=== PATIENT | male | born 1940 | race Caucasian/White ===

== ENCOUNTER → 2016-05-24 | Outpatient (CLI) | payer MEDICARE, MEDICAID ==
[~2016-05-24] MED LIST: ALB0.5V INH; ALBU0.8322; ALBU17AE23; APIX5TAB PO; ASCO-262 PO; ASCO2000; ASCORBIC ACID PO; ASP81TEC; ASP81TEC PO; ASPI-86; ATR20T PO; BUDE6HFA IH; CALC-697 PO; CARV12.53; CARV6.252; CARV6.252 PO; CLPD75T PO; DIGO125T PO; DIGO125T91 PO; DIGO250T PO; DIGO250T96 PO; DILT120C PO; DILT120C53 PO; DLT120CCR PO; DRON400T; DRON400T2 PO; ECHINACEA PO; ENAL2.5T PO; ERGO400C PO; ESCT10T PO; FAMO20TA5 PO; FENO145T2 PO; FINA5TAB PO; FLUT16SP22 NS; FLUT16SP22 NSEACH; FURO40TA4 PO; HCT25T PO; HYDR-2854 PO; LEVO750T6 PO; LVT.05T PO; MAGN296S PO; MELA1TAB11 PO; MTP100TCR PO; MTP25TSR PO; MULT-608 PO; MULT1TAB5 PO; NF-XOP-HFA INH; OMAL150V SQ; OMEG-109 PO; OMEG-9 PO; OMG1KC PO; OXYM30SP NSEACH; POTA10TA6; POTA20PA3 PO; PRD10T PO; PRD20T; PRD20T PO; PRD5T; PROP10TA8 PO; ROFL500T4 PO; ROSU10TA12 PO; ROSU20TA28 PO; SIMV10TA3; SIMV20TA3; SIMV40TA2 PO; SITA100T PO; SLMFT1E; SPIR25TA3 PO; SPIR50TA27; TEST100V8 IM; TIOT18CA; TIOT18CA IH; TRM50T PO; UMEC1BLS IH; VIT1TABL57 PO; WRF1T PO; WRF2.5T PO; WRF2T; WRF2T PO; [UNRECOGNIZED DRUG - REMARK]; vit D3
--- NOTE | 2016-05-25 08:13 | ECHOCARDIOGRAPHY REPORT ---
PROCEDURE PHYSICIAN: ANTOLIN PEARL DATE OF PROCEDURE: 05/24/2016 TWO DIMENSIONAL ECHOCARDIOGRAM REPORT PRIMARY PHYSICIAN: OTHER PHYSICIAN: REFERRING PHYSICIAN: Dr. Rolle ORDERING PHYSICIAN: INDICATION FOR THE PROCEDURE: Atrial fibrillation. MEASUREMENTS DERIVED VALUES LV DIAMETER (LAX) NORMALS NORMALS Diastolic 3.4 (3.6-5.2) Eject. Fract. 50% (60%+/-6%) Systolic (2.3-3.9) Diastolic Vol. % Shortening (0.22-0.42) Systolic Vol. Aortic Root IVS THICKNESS Diastolic 1.1 (0.6-1.1) LVPW THICKNESS Diastolic 1.1 (0.6-1.1) LA DIAMETER Systolic 4.7 (2.1-3.7) FINDINGS: 1. Technical quality is good. 2. The left ventricle is normal in size with mild left ventricular hypertrophy noted diffusely. Systolic function appeared to be preserved. Estimated ejection fraction 50%. 3. The left atrium is dilated. No clot or thrombus were seen within the left atrium. 4. The right atrium is dilated. Right ventricle is dilated. No clot or thrombus were seen within the right side. 5. Mitral valve is calcified with mitral annular calcification and myxomatous degeneration of the mitral leaflet. Mild mitral regurgitation noted by color Doppler flow. No mitral valve prolapse or stenosis. 6. Aortic valve is mildly calcified, trileaflet, no significant aortic stenosis or regurgitation was seen. 7. Tricuspid valve is normal in morphology with severe tricuspid regurgitation noted by color Doppler flow. Doppler across tricuspid valve estimated pulmonary artery pressure of 41+ right atrial pressure. 8. Pulmonic valve is functioning normally. 9. No pericardial effusion. IN CONCLUSION: 1. Mild left ventricular hypertrophy with normal systolic function. Estimated ejection fraction 50%. 2. Dilated left atrium. 3. Dilated right heart chambers. 4. 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 Mild mitral regurgitation. Aortic valve sclerosis. No aortic stenosis. Severe tricuspid regurgitation. 5. Pulmonary hypertension with estimated pulmonary artery pressure of 50 mmHg. Job ID: [id number] Dictated Date: 05/24/2016 18:21:49 Agile Business Analyst Date: 05/25/2016 08:09:45 / usman
== END ==
LOC: CARD 12:26
PROVIDERS: ATTEND Internal Medicine Cardiovascular Disease
DX: I25.10 Atherosclerotic heart disease of native coronary artery without angina pectoris (principal); I50.9 Heart failure, unspecified; I11.0 Hypertensive heart disease with heart failure; E78.2 Mixed hyperlipidemia; I48.0 Paroxysmal atrial fibrillation
CPT/HCPCS: 93306

== ENCOUNTER → 2016-06-02 | Outpatient (CLI) | payer MEDICARE, MEDICAID ==
[~2016-06-02] VITALS: Ht 175.3 cm; Wt 78.9 kg
[~2016-06-02] MED LIST changes: +CATHETER FLUSH 10 ML SYR IV PRN; +REGADENOSON 0.4 MG/5 ML SYR (LEXISCAN) IV ONE
[2016-06-02 09:06] VITALS: BP 113/72
[2016-06-02 09:10] VITALS: BP 100/74
[2016-06-02 10:11] LABS: ALBUMIN 3.3 G/DL (3.2-4.5); BILIRUBIN,DIRECT 0.5 MG/DL (0.0-0.3); BILIRUBIN,INDIRECT 0.6 MG/DL; TOTAL PROTEIN 6.6 G/DL (6.4-8.2)
[2016-06-02 10:20] LABS: BILIRUBIN,TOTAL 1.1 MG/DL (0.1-1.0)
--- NOTE | 2016-06-02 14:27 | STRESS TEST ---
PROCEDURE PHYSICIAN: ANTOLIN PEARL LEXISCAN MYOVIEW STRESS REPORT DATE OF PROCEDURE: 06/02/2016 REFERRING PHYSICIAN: Dr. Rolle Baseline heart rate is 73, baseline blood pressure: 113/72. Baseline EKG: Atrial fibrillation with no ischemic changes. SUMMARY: The patient was injected with 10.92 mCi of technetium 99 Myoview and the resting images were obtained. Then the patient received 0.4 mg of Lexiscan followed by 31.7 mCi of technetium 99 Myoview. Throughout the test, there were no EKG changes. The resting and stress images were reviewed and compared in the short axis, horizontal long axis, and vertical long axis views. Review of the images showed mild decreased uptake at the mid to apical anterior wall, anterolateral wall. SSS is 2, SDS 2, TID value 0.96. On the gated images, the left ventricle appeared to be normal size with normal contractility. Calculated ejection fraction 61%. CONCLUSION: 1. The patient tolerated Lexiscan well. 2. Mild ischemia involving the mid to apical anterior wall, anterolateral wall. 3. Normal left ventricular size with normal contractility. Calculated ejection fraction 61%. Job ID: [id number] Dictated Date: 06/02/2016 13:55:08 Fish Worm Grower Date: 06/02/2016 14:23:06 / carol
== END ==
LOC: CARD 07:22
PROVIDERS: ATTEND Internal Medicine Cardiovascular Disease
DX: E78.2 Mixed hyperlipidemia (principal); I48.91 Unspecified atrial fibrillation; I25.10 Atherosclerotic heart disease of native coronary artery without angina pectoris; I11.0 Hypertensive heart disease with heart failure; I50.9 Heart failure, unspecified; I48.0 Paroxysmal atrial fibrillation
CPT/HCPCS: 36415; 78452; 80061; 80076; 93017

== ENCOUNTER 2016-06-09 07:00 | Day surgery (SDC) | payer MEDICARE, MEDICAID ==
[2016-06-09] VITALS (13 sets, daily range): BP systolic 100–130; BP diastolic 68–95
[~2016-06-09] VITALS: Ht 172.7 cm; Wt 78.5 kg
[~2016-06-09 07:00] MED LIST changes: -APIX5TAB PO; -ASCO-262 PO; -CATHETER FLUSH 10 ML SYR IV PRN; -DILT120C53 PO; -FLUT16SP22 NSEACH; -OMAL150V SQ; -OMEG-109 PO; -OXYM30SP NSEACH; -REGADENOSON 0.4 MG/5 ML SYR (LEXISCAN) IV ONE; -ROFL500T4 PO; -ROSU20TA28 PO; -TEST100V8 IM; -UMEC1BLS IH
[2016-06-09] MEDS ORDERED: NS IV 1000 ML 1,000 ML ONE (07:07)
[2016-06-09] MEDS ORDERED: HEParin (CATH LAB) 2,000 ML IV ONE (07:07)
[2016-06-09] MEDS ORDERED: LIDOCAINE 1% INJ 20 ML (XYLOCAINE) VIAL ONE (07:07)
[2016-06-09] MEDS ORDERED: NS IV 1000 ML 1,000 ML IV SCH ×2 (07:12→10:07)
[2016-06-09 07:32] LABS: MEAN PLATELET VOLUME 10.1 FL (7.4-10.4); RED BLOOD COUNT 6.16 10^6/uL (4.35-5.85); RED CELL DISTRIBUTION WIDTH 18.7 % (10.0-14.5); WHITE BLOOD COUNT 7.3 10^3/uL (4.3-11.0)
[2016-06-09 07:33] LABS: BILIRUBIN,URINE NEGATIVE (NEGATIVE); KETONES,URINE NEGATIVE (NEGATIVE); LEUKOCYTE ESTERASE ,URINE 1+ (NEGATIVE); NITRITE,URINE NEGATIVE (NEGATIVE); PH,URINE 6 (5-9); PROTEIN,URINE 3+ (NEGATIVE); UROBILINOGEN,URINE 1 MG/DL (NORMAL)
[2016-06-09 07:42] LABS: PROTHROMBIN TIME PATIENT 13.1 SEC (12.2-14.7); SQUAMOUS EPITHELIAL CELL,UR 0-2 /HPF; WBC,URINE 0-2 /HPF
[2016-06-09 07:52] LABS: ALBUMIN 3.5 G/DL (3.2-4.5); BILIRUBIN,TOTAL 1.2 MG/DL (0.1-1.0); CALCIUM 8.9 MG/DL (8.5-10.1); CREATININE SERUM 1.18 MG/DL (0.60-1.30); POTASSIUM 3.6 MMOL/L (3.6-5.0)
--- NOTE | 2016-06-09 07:54 | Cardiac Procedure Note-CS/ASA ---
Pre-Procedure Note Pre-Op Procedure Note H&P Reviewed The H&P was reviewed, patient examined and no changes noted. Date H&P Reviewed: Jun 09, 2016 Time H&P Reviewed: 07:54 Conscious Sedation Pre-Proced Time Reviewed: 07:54 ASA Class: 3 Airway Mallampati Classification: ([place] appropriate class) I. II. III, IV Lungs Heart ASA score ASA 1: a normal healthy patient ASA 2: a patient with a mild systemic disease (mid diabetes, controlled hypertension, obesity x ASA 3: a patient with a severe systemic disease that limits activity (angina , COPD, prior Myocardial infarction) ASA 4: a patient with an incapacitating disease that is a constant threat to life (CHF, renal failure) ASA 5: a moribund patient not expected to survive 24 hrs. (ruptured aneurysm) ASA 6: a declared brain patient whose organs are being harvested. For emergent operations, add the letter E after the classification Grade 3 Sedation Plan: Analgesia, Amnesia, Plan communicated to team members, Discussed options with patient/fam, Discussed risks with patient/fam Note The patient is an appropriate candidate to undergo the planned procedure, sedation, and anesthesia. The patient immediately re-assessed prior to indication. ANTOLIN PEARL MD Jun 09, 2016 07:54
--- NOTE | 2016-06-09 08:22 | Diagnostic Imaging Report ---
Portable upright radiograph of the chest. INDICATION: Abnormal stress test. FINDINGS: The left lung demonstrate overall decreased volume with the deviation of the trachea to the left and elevation of the left hemidiaphragm. When compared to 2012 exam patchy infiltrates in the perihilar lesion was noted and at this point there is a mild remaining scarring in this region. There is some compensatory hyperinflation of the right lung. The heart size is mildly enlarged. No effusion or pneumothorax is evident. IMPRESSION: Areas of scarring with the overall decreased lung volume in the left side perhaps secondary to prior infections. No acute infiltrates identified. Dictated by: Dictated on workstation # [id number]
[2016-06-09] MEDS ORDERED: UMEC1BLS IH (08:55)
[2016-06-09] MEDS ORDERED: FLUT16SP22 NSEACH (08:55)
[2016-06-09] MEDS ORDERED: TEST100V8 IM (08:55)
[2016-06-09] MEDS ORDERED: ASCO-262 PO (08:55)
[2016-06-09] MEDS ORDERED: OXYM30SP NSEACH (08:55)
[2016-06-09] MEDS ORDERED: ROSU20TA28 PO (08:55)
[2016-06-09] MEDS ORDERED: APIX5TAB PO (08:55)
[2016-06-09] MEDS ORDERED: OMAL150V SQ (08:55)
[2016-06-09] MEDS ORDERED: OMEG-109 PO (08:55)
[2016-06-09] MEDS ORDERED: ROFL500T4 PO (08:55)
[2016-06-09] MEDS ORDERED: DILT120C53 PO (09:00)
[2016-06-09] MEDS ORDERED: MIDAZOLAM 5 MG/5 ML (VERSED) VIAL ONE (09:07)
[2016-06-09] MEDS ORDERED: fentaNYL INJECTION 100 MCG/2 ML AMP ONE (09:08)
--- NOTE | 2016-06-09 10:09 | Discharge Inst-Post CATH ---
Discharge Inst-CATH Post Cardiac Cath D/C Inst Follow Up/Plan Appointment with Dr Caceres's office in 2-4 weeks CARDIAC CATH DISCHARGE INSTRUCTIONS *Hold Metformin for 48 hours post heart cath. ACTIVITY * Go Home directly and rest. * Limit activity of the leg (or wrist if it was used) for 7 days including aerobics, swimming, jogging, bicycling, etc. * Restrict stair-climbing for 7 days if possible, if not, climb up with your non -cath leg, then bring together on the same step. * Avoid lifting, pushing, pulling or excessive movement of the affected extremity for 7 days. * Customary sexual activity may be resumed after 2 days-use caution not to use a position that strains or causes pain to the affected extremity. * No driving for 24 hours. * NO SMOKING. * Avoid straining for bowel movements for 7 days. * Gentle walking on level ground is allowed. * Returning to work will depend on the type of procedure and the results. Your doctor will discuss this with you. CALL YOUR DOCTOR FOR ANY OF THE FOLLOWING: *If bleeding from the puncture site occurs- Apply gentle pressure to site with clean cloth and call your doctor or EMS. * If a knot or lump forms under the skin, increases in size, or causes pain. * If bruising appears to be worsening or moving further down your leg instead of disappearing. * Temperature above 101 F. CARE OF YOUR GROIN INCISION; * Bruising or purple discoloration of the skin near the puncture site is common. * You may shower only, no bathtub bathing for 5 days. Be careful to avoid slipping as your leg may feel stiff. * If a closure device was used on your femoral artery, please see the attached guide regarding care of the device and your leg. * REMOVE the dressing from your groin the next day after your procedure in the shower. CARE OF YOUR WRIST INCISION; * Bruising or purple discoloration of the skin near the puncture site is common. * You may shower. * DO NOT submerge wrist. * Remove dressing in 24 hours. ANTOLIN CACERES MD Jun 09, 2016 10:09
[2016-06-09] MEDS ORDERED: PATIENT MAY USE OWN MEDS, ALL PO SCH (10:15)
--- NOTE | 2016-06-09 14:17 | DISCHARGE SUMMARY ---
PROCEDURE PHYSICIAN: ANTOLIN PEARL DATE OF PROCEDURE: 06/09/2016 REFERRING PHYSICIAN: Dr. Garrick Rolle. BRIEF HISTORY: Mr. Jones is a 76-year-old gentleman with history of coronary artery disease. He had 2 stents to the circumflex artery. The patient had an abnormal stress test. He was scheduled for left heart catheterization, possible PTCA. PROCEDURE NOTE: After explaining the procedure to the patient, all pros and cons were explained. All questions were answered. The patient signed a consent, then he was placed on the cardiac catheterization laboratory. The right groin was prepped in a sterile fashion. Local anesthesia applied to right groin. 6-Korean sheath was placed in the right femoral artery. Combination of right and left Bryon catheter were used to access the right and left coronary system. Multiple views were obtained. Pigtail catheter was advanced to the left ventricular cavity. Pressure was measured. Pullback LV to aorta was done. At the end of the procedure, sheath was removed. Mynx device deployed. Hemostasis achieved. FINDINGS: HEMODYNAMICS: LV pressure 87/11, end-diastolic pressure of 11, aortic pressure 89/57, mean of 70. No significant gradient across the aortic valve. ANATOMY: 1. Left main coronary artery is bifurcating to left anterior descending and left circumflex artery with no obstructive disease. 2. Left anterior descending artery, slightly a tortuous with mild disease at the mid and distal portion. Nonobstructive disease. 3. Left circumflex artery has a patent stent in the proximal and midportion with no significant obstructive disease. 4. Right coronary artery is moderate in size with 40% stenosis at the midportion, nonobstructive disease. 5. No left ventriculogram was done. Pressure was measured. CONCLUSION: 1. Patent stent in the circumflex artery. 2. Mild to moderate coronary artery disease involving the LAD and right coronary artery, nonobstructive disease. 3. Normal left ventricular, end diastolic pressure. DISCUSSION AND RECOMMENDATION: Medical therapy is recommended. No intervention is warranted. FINAL DIAGNOSIS: 1. Coronary artery disease. 2. Paroxysmal atrial fibrillation. 3. Hypertension. 4. Hyperlipidemia. Job ID: [id number] Dictated Date: 06/09/2016 10:13:04 Cyber Defense Analyst Date: 06/09/2016 14:15:20/carol
== END 2016-06-09 15:38 | disposition home or self-care (01) ==
LOC: CATH 07:00 → SURG 10:25 → CATH 15:38
PROVIDERS: ATTEND Internal Medicine Cardiovascular Disease
DX: R94.39 Abnormal result of other cardiovascular function study (principal); I25.10 Atherosclerotic heart disease of native coronary artery without angina pectoris; I48.0 Paroxysmal atrial fibrillation; I12.9 Hypertensive chronic kidney disease with stage 1 through stage 4 chronic kidney disease, or unspecified chronic kidney disease; N18.9 Chronic kidney disease, unspecified; J44.9 Chronic obstructive pulmonary disease, unspecified; I27.81 Cor pulmonale (chronic); I50.22 Chronic systolic (congestive) heart failure; E78.5 Hyperlipidemia, unspecified; Z99.81 Dependence on supplemental oxygen; Z79.01 Long term (current) use of anticoagulants; Z79.899 Other long term (current) drug therapy; Z87.891 Personal history of nicotine dependence; Z95.5 Presence of coronary angioplasty implant and graft
CPT/HCPCS: 36415; 71010; 80053; 81000; 85027; 85610; 85730; 87081; 93005; 93458

== ENCOUNTER 2016-08-25 12:50 | Outpatient (RCR) | payer MEDICARE, MEDICAID, OTHER ==
[2016-06-15 14:55] VITALS: BP 118/86
[2016-06-15 16:00] VITALS: BP 118/86
[2016-07-13 13:00] VITALS: BP 125/72
[~2016-08-25] VITALS: Ht 172.7 cm; Wt 78.5 kg
[2016-08-25 12:47] VITALS: BP 117/82
[~2016-08-25 12:50] MED LIST changes: +APIX5TAB PO; +ASCO-262 PO; +DILT120C53 PO; +FLUT16SP22 NSEACH; +OMAL150V SQ; +OMEG-109 PO; +OXYM30SP NSEACH; +ROFL500T4 PO; +ROSU20TA28 PO; +TEST100V8 IM; +UMEC1BLS IH
== END 2016-09-13 | disposition home or self-care (01) ==
LOC: SDC 12:50
PROVIDERS: ATTEND Internal Medicine
DX: D75.1 Secondary polycythemia (principal)
CPT/HCPCS: 99195

== ENCOUNTER 2016-10-20 06:11 | Outpatient (CLI) | payer MEDICARE, MEDICAID ==
[~2016-10-20] VITALS: Ht 172.7 cm; Wt 77.1 kg
[2016-12-20] MEDS ORDERED: DIGO125T PO (10:22)
[2016-12-20] MEDS ORDERED: FURO40TA4 PO (10:22)
[2016-12-20] MEDS ORDERED: FOLI1TAB6 PO (10:26)
[2016-12-20] MEDS ORDERED: METO-395 PO (10:26)
== END 2016-10-20 09:55 ==
LOC: PREOP 06:11
PROVIDERS: ATTEND Internal Medicine
DX: Z01.818 Encounter for other preprocedural examination (principal); K92.1 Melena

== ENCOUNTER 2016-10-22 08:50 | Day surgery (SDC) | payer MEDICARE, MEDICAID ==
[~2016-10-22] VITALS: Ht 172.7 cm; Wt 77.1 kg
[2016-10-22] MEDS ORDERED: 1/2 NS IV SOLUTION 1,000 ML IV STA (08:59)
[2016-10-22] MEDS ORDERED: MIDAZOLAM 2 MG/2 ML (VERSED) VIAL IVP PRN (09:00)
[2016-10-22] MEDS ORDERED: fentaNYL INJECTION 100 MCG/2 ML AMP IVP PRN (09:00)
[2016-10-22 09:14] VITALS: BP 121/92
--- NOTE | 2016-10-22 09:56 | Pre-Op Note & Conscious Sedat ---
Pre-Operative Progress Note H&P Reviewed The H&P was reviewed, patient examined and no changes noted. Date H&P Reviewed: Oct 22, 2016 Time H&P Reviewed: 09:00 Conscious Sedation Pre-Proced ASA Class: 3 Airway Mallampati Classification: ([place] appropriate class) I. II. III, IV Lungs Heart ASA score ASA 1: a normal healthy patient ASA 2: a patient with a mild systemic disease (mid diabetes, controlled hypertension, obesity ASA 3: a patient with a severe systemic disease that limits activity (angina , COPD, prior Myocardial infarction) ASA 4: a patient with an incapacitating disease that is a constant threat to life (CHF, renal failure) ASA 5: a moribund patient not expected to survive 24 hrs. (ruptured aneurysm) ASA 6: a declared brain patient whose organs are being harvested. For emergent operations, add the letter E after the classification Grade 3 Sedation Plan: Analgesia, Amnesia, Plan communicated to team members, Discussed options with patient/fam, Discussed risks with patient/fam Note The patient is an appropriate candidate to undergo the planned procedure, sedation, and anesthesia. The patient immediately re-assessed prior to indication. CRISTINA MEADOWS MD Oct 22, 2016 09:56
[2016-10-22] MEDS ORDERED: LIDOCAINE JELLY 2% (XYLOCAINE) 5 ML TUBE ONE (10:01)
[2016-10-22] MEDS ORDERED: fentaNYL INJECTION 100 MCG/2 ML AMP ONE (10:01)
[2016-10-22] MEDS ORDERED: MIDAZOLAM 2 MG/2 ML (VERSED) VIAL ONE ×2 (10:02)
[2016-10-22] MEDS ORDERED: LIDOCAINE JELLY 2% (XYLOCAINE) 5 ML TUBE TOP ONE (11:00)
[2016-10-22 11:20] VITALS: BP 117/83
[2016-10-22 11:50] VITALS: BP 126/84
--- NOTE | 2016-10-24 07:52 | OPERATIVE REPORT ---
DATE OF SERVICE: COLONOSCOPY SUMMARY INDICATIONS FOR THE PROCEDURE: Occult positive blood in the stool . The patient was placed in the left lateral decubitus position. Prior to undergoing colonoscopy, digital rectal evaluation was performed. Anal sphincter tone was normal and the perianal reflex was intact. Prostate was mildly enlarged, anodular and nontender on digital inspection. No abnormalities were noted on digital inspection of the distal rectal vault. The colonoscope was then inserted into the rectum and under direct visualization advanced to the cecum. The cecum was identified by identification of the ileocecal valve and cecal strap. Photographic documentation was obtained. Careful inspection was made as the colonoscope was withdrawn. The patient tolerated the procedure well. FINDINGS: There was no evidence for internal or external hemorrhoids and there was a diminutive hyperplastic-appearing polyp present in the distal rectum. It was biopsied and ablated, and submitted for histopathology. Small 2 and a 5 mm sessile adenomatous-appearing polyps were noted in the distal descending colon, proximal transverse colon, and distal ascending colon. All were biopsied and ablated with no subsequent blood loss and submitted for histopathology. The cecum was unremarkable. ASSESSMENT: Four diminutive polyps were removed today as noted above via hot forceps with no blood loss. This was otherwise normal colonoscopy to the cecum. As long as there are no surprises on histopathology report, we will not be recommending future surveillance colonoscopy considering this patient's age and medical comorbidities. Job ID: [id number] DocumentID: [id number] Dictated Date: 10/22/2016 13:10:41 Plant Culture Manager Date: 10/23/2016 00:19:58 Dictated By: CRISTINA MEADOWS MD
--- NOTE | 2016-11-03 08:02 | HISTORY AND PHYSICAL ---
DATE OF SERVICE: 10/22/2016 HISTORY OF PRESENT ILLNESS: The patient is a 76-year-old white male who underwent fecal occult blood screening as part of his [place] workup, which was positive several weeks ago. He reports that he feels well. He has noted no melena or bright red blood per rectum. He has had no bowel habit change and denies abdominal pain. It has been over 5 years since his last colonoscopy for which, he believes he did have a polyp removed. He reports stable dyspnea on exertion with no chest discomfort. Denies orthopnea, PND or pedal edema. PAST MEDICAL HISTORY: Significant for persistent atrial fibrillation, on Eliquis as well as O2 dependent COPD, oxygen at 2 liters per nasal cannula continuous. FAMILY HISTORY: He is not aware of any family history for colon cancer or colon polyps. PHYSICAL EXAMINATION: GENERAL: Reveals a pleasant white male who has lost a significant amount of weight and has maintained weight loss for the past several years, but reportedly stable appetite and energy level. VITAL SIGNS: Blood pressure is 102/81, weight is 167.6 pounds, was down 1.8 pounds from one month ago. CHEST: Clear. CARDIOVASCULAR: Irregularly irregular rhythm without significant murmur, S3 or S4. ABDOMEN: Soft, supple without mass, organomegaly or tenderness. EXTREMITIES: Reveal no cyanosis, clubbing or edema with chronic venous insufficiency change. No evidence for ulceration. [place] blood studies were reviewed and for the most part unremarkable with no evidence for anemia and a normal PSA. Liver function studies were normal as well as the rest of his chemistry panel. ASSESSMENT AND PLAN: 1. The patient is set up for diagnostic colonoscopy for further investigation of occult positive blood in the stool with weight loss. 2. Persistent atrial fibrillation, rate controlled without evidence for heart failure. 3. O2 dependent chronic obstructive pulmonary disease, improved with weight loss and no evidence for cor pulmonale. Job ID: [id number] DocumentID: [id number] Dictated Date: 10/13/2016 20:04:09 Health Information Coder Date: 10/13/2016 20:39:05 Dictated By: CRISTINA MEADOWS MD <Dictated by CRISTINA MEADOWS MD> <Electronically signed by CRISTINA MEADOWS MD> 10/15/16 1124
== END 2016-10-22 13:05 | disposition home or self-care (01) ==
LOC: ENDO 08:50
PROVIDERS: ATTEND Internal Medicine
DX: D12.2 Benign neoplasm of ascending colon (principal); D12.3 Benign neoplasm of transverse colon; K62.1 Rectal polyp; I48.1 Persistent atrial fibrillation; J44.9 Chronic obstructive pulmonary disease, unspecified; Z99.81 Dependence on supplemental oxygen
CPT/HCPCS: 88305

== ENCOUNTER 2016-11-18 09:43 | Outpatient (RCR) | payer MEDICARE, MEDICAID ==
[2016-09-22 11:19] VITALS: BP 121/77
--- NOTE | 2016-10-13 22:38 | HISTORY AND PHYSICAL ---
DATE OF SERVICE: HISTORY OF PRESENT ILLNESS: The patient is a 76-year-old white male who underwent fecal occult blood screening as part of his [place] workup, which was positive several weeks ago. He reports that he feels well. He has noted no melena or bright red blood per rectum. He has had no bowel habit change and denies abdominal pain. It has been over 5 years since his last colonoscopy for which, he believes he did have a polyp removed. He reports stable dyspnea on exertion with no chest discomfort. Denies orthopnea, PND or pedal edema. PAST MEDICAL HISTORY: Significant for persistent atrial fibrillation, on Eliquis as well as O2 dependent COPD, oxygen at 2 liters per nasal cannula continuous. FAMILY HISTORY: He is not aware of any family history for colon cancer or colon polyps. PHYSICAL EXAMINATION: GENERAL: Reveals a pleasant white male who has lost a significant amount of weight and has maintained weight loss for the past several years, but reportedly stable appetite and energy level. VITAL SIGNS: Blood pressure is 102/81, weight is 167.6 pounds, was down 1.8 pounds from one month ago. CHEST: Clear. CARDIOVASCULAR: Irregularly irregular rhythm without significant murmur, S3 or S4. ABDOMEN: Soft, supple without mass, organomegaly or tenderness. EXTREMITIES: Reveal no cyanosis, clubbing or edema with chronic venous insufficiency change. No evidence for ulceration. [facility] blood studies were reviewed and for the most part unremarkable with no evidence for anemia and a normal PSA. Liver function studies were normal as well as the rest of his chemistry panel. ASSESSMENT AND PLAN: 1. The patient is set up for diagnostic colonoscopy for further investigation of occult positive blood in the stool with weight loss. 2. Persistent atrial fibrillation, rate controlled without evidence for heart failure. 3. O2 dependent chronic obstructive pulmonary disease, improved with weight loss and no evidence for cor pulmonale. Job ID: [id number] DocumentID: [id number] Dictated Date: 10/13/2016 20:04:09 Retail Administrative Assistant Date: 10/13/2016 20:39:05 Dictated By: CRISTINA MEADOWS MD
[2016-10-22 11:15] VITALS: BP 117/83
[~2016-11-18] VITALS: Ht 172.7 cm; Wt 79.0 kg
[2016-11-18 10:00] VITALS: BP 134/100
== END 2016-11-27 | disposition home or self-care (01) ==
LOC: SDC 09:43
PROVIDERS: ATTEND Internal Medicine
DX: D75.1 Secondary polycythemia (principal)
CPT/HCPCS: 99195

== ENCOUNTER 2017-01-17 20:49 | Emergency (ER) | payer MEDICARE, MEDICAID ==
[~2017-01-17] VITALS: Ht 175.3 cm; Wt 77.1 kg
[~2017-01-17 20:49] MED LIST changes: +FOLI1TAB6 PO; +METO-395 PO
--- NOTE | 2017-01-17 21:54 | ED Fall/Injury ---
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 HE STATES HE LANDED ON HIS L SHOULDER AND WAS UNABLE TO GET HIMSELF UP OFF THE FLOOR. PT HAS MODERATE SIZED HEMATOMA TO L SHOULDER. PT DENIES HITTING HIS HEAD OR ANY OTHER INJURY. Source: patient Exam Limitations: no limitations History of Present Illness Time seen by provider: 21:54 Location Injury Occurred: PT HOME Allergies and Home Medications Allergies Coded Allergies: No Known Drug Allergies (Unverified , 10/20/16) Home Medications Ascorbate Calcium 500 Mg Tablet, 500 MG PO DAILY, (Reported) Digoxin 125 Mcg Tablet, 125 MCG PO DAILY, (Reported) Diltiazem HCl 120 Mg Cap.er.24h, 120 MG PO DAILY, (Reported) Fluticasone Propionate 16 Gm [place].susp, 1-2 SPRAYS NSEACH BID PRN for ALLERGIES , (Reported) Furosemide 40 Mg Tablet, 40 MG PO DAILY, (Reported) Metoprolol Succinate 100 Mg Tab.er.24h, 100 MG PO DAILY, (Reported) Multivitamin/Iron/Folic Acid 1 Each Tablet, 1 TAB PO DAILY, (Reported) Omalizumab 150 Mg Gaby, 150 MG SQ EVERY 2 WEEKS, (Reported) Caro-3 Fatty Acids/Fish Oil 1 Each Capsule, 2,400 MG PO DAILY, (Reported) TAKES 2 (1,200 MG) CAPSULES Oxymetazoline HCl 30 Ml [place], 1-2 SPRAYS NSEACH DAILY PRN for CONGESTION, ( Reported) Roflumilast 500 Mcg Tablet, 500 MCG PO DAILY, (Reported) Rosuvastatin Calcium 20 Mg Tablet, 20 MG PO DAILY, (Reported) Testosterone Cypionate 100 Mg/1 Ml Vial, 100 MG IM EVERY 2 WEEKS, (Reported) Umeclidinium Brm/Vilanterol Tr 1 Each Blst.w.dev, 1 PUFF IH DAILY, (Reported) Past Uzodmxx-Deikap-Ynoigh Hx Patient Social History Alcohol Use: Past History Recreational Drug Use: No Smoking Status: Former Smoker Type Used: Cigarettes Former Smoker, Quit: Jun 10, 2007 2nd Hand Smoke Exposure: No Recent Foreign Travel: No Contact w/Someone Who Travel: No Recent Infectious Disease Expo: No Recent Hopitalizations: No Physical Abuse: No Sexual Abuse: No Immunizations Up To Date Tetanus Booster (TDap): Unknown Date of Pneumonia Vaccine: Dec 08, 2015 Date of Influenza Vaccine: Dec 08, 2015 Seasonal Allergies Seasonal Allergies: Yes Surgeries History of Surgeries: Yes (I&D, [facility] GANGRENE) Respiratory History of Respiratory Disorde: Yes (2L O2 [place]) Respiratory Disorders: COPD Currently Using CPAP: Yes Cardiovascular History of Cardiac Disorders: Yes (CARDIOMYOPATHY WAS IN A-FIB JUNE 2009) Cardiac Disorders: Atrial Fibrillation, High Cholesterol, Hypertension, Irregular Heartbeat Neurological History of Neurological Disord: No Reproductive System Hx Reproductive Disorders: No Sexually Transmitted Disease: No HIV/AIDS: No Gastrointestinal History of Gastrointestinal Di: Yes Musculoskeletal History of Musculoskeletal Dis: No Endocrine History of Endocrine Disorders: No HEENT Loss of Vision: Bilateral Hearing Impairment: Denies Cancer History of Cancer: No Psychosocial History of Psychiatric Problem: No Suicide Risk Score: 0 Integumentary History of Skin or Integumenta: No Blood Transfusions History of Blood Disorders: Yes (POLYCYTHEMIA) Adverse Reaction to a Blood Tr: No Physical Exam Vital Signs Vital Sign - Last 12Hours 01/17/17 21:14 Temp 98.4 Pulse 80 Resp 18 B/P (MAP) 118/87 Pulse Ox 97 O2 Delivery Nasal Cannula Capillary Refill : Less Than 3 Seconds Progress/Results/Core Measures Results/Orders My Orders Orders - CRISTY GRULLON Chest Pa/Lat (2 View) (01/17/17 22:03) Ct Head Wo (01/17/17 22:03) Shoulder, Left, 3 Views (01/17/17 22:20) Vital Signs/I&O Vital Sign - Last 12Hours 01/17/17 21:14 Temp 98.4 Pulse 80 Resp 18 B/P (MAP) 118/87 Pulse Ox 97 O2 Delivery Nasal Cannula Blood Pressure Mean: 97 Departure Impression Impression: Primary Impression: Contusion of left shoulder Additional Impression: Fall in home Disposition: 01 HOME, SELF-CARE Condition: Improved Departure-Patient Inst. Decision time for Depature: 22:42 Referrals: CRISTINA MEADOWS MD (PCP/Family) Primary Care Physician Patient Instructions: Minor Head Injury (DC), Preventing Falls Add. Discharge Instructions: All discharge instructions reviewed with patient and/or family. Voiced understanding. Continue usual home medications. Ice pack for 20 minute intervals as needed for pain. Avoid strenuous activity, heavy lifting, or activities which may result and head injury for 7 days. Follow-up with your primary care provider as an outpatient for a recheck. Return to the emergency department for headache, neck pain, back pain, dizziness, changes in behavior, changes in vision, slurred speech, chest pain, shortness of air, vomiting, numbness, weakness, or any other concerns. CRISTY GRULLON Jan 17, 2017 21:54
[2017-01-17 23:03] VITALS: BP 118/87
--- NOTE | 2017-01-18 06:39 | Diagnostic Imaging Report ---
PROCEDURE: CT head without contrast. TECHNIQUE: Multiple contiguous axial images were obtained through the brain without the use of intravenous contrast. INDICATION: Fall. FINDINGS: There is prominence of ventricles and sulci. There is chronic microvascular ischemic disease. There is no hydrocephalus. There is no midline shift. There is no intracranial mass, hemorrhage or extra-axial fluid collection. The calvarium is intact. There is bilateral maxillary sinus disease as well as some opacification of several ethmoid air cells. Mastoid air cells are clear. IMPRESSION: No acute intracranial abnormality. There is atrophy and some chronic microvascular ischemic disease. If there is high clinical concern for an acute CVA further evaluation with MRI should be considered. Bilateral maxillary and ethmoid air cell disease. Dictated by: Dictated on workstation # [id number]
--- NOTE | 2017-01-18 07:23 | Diagnostic Imaging Report ---
INDICATION: Pain after fall. Comparison is made with prior examination 06/09/16. FINDINGS: Heart size is normal. There is mild venous congestion. There is some right basilar atelectasis and/or pneumonitis. There is no pleural effusion or pneumothorax. There are mild degenerative changes in the spine. IMPRESSION: Right basilar atelectasis and/or pneumonitis and some minimal central pulmonary venous congestion. Dictated by: Dictated on workstation # [id number]
--- NOTE | 2017-01-18 07:27 | Diagnostic Imaging Report ---
INDICATION: Fall with pain. No fracture, dislocation or acute articular incongruity. The visualized adjacent ribs and pleura appeared nonacute. AC joint showed no separation. IMPRESSION: No acute appearing abnormality. Dictated by: Dictated on workstation # [id number]
== END 2017-01-17 23:03 | disposition home or self-care (01) ==
LOC: EDUNIT# 20:49 → ER 20:50
DX: S40.012A Contusion of left shoulder, initial encounter (principal); J44.9 Chronic obstructive pulmonary disease, unspecified; I42.9 Cardiomyopathy, unspecified; I48.91 Unspecified atrial fibrillation; E78.00 Pure hypercholesterolemia, unspecified; I10 Essential (primary) hypertension; Z87.891 Personal history of nicotine dependence; W18.30XA Fall on same level, unspecified, initial encounter; Y92.009 Unspecified place in unspecified non-institutional (private) residence as the place of occurrence of the external cause
CPT/HCPCS: 70450; 71020; 73030; 99282

== ENCOUNTER 2017-03-16 09:45 | Outpatient (RCR) | payer MEDICARE, MEDICAID ==
[2016-12-20 10:15] VITALS: BP 103/75
[2017-01-19 10:26] VITALS: BP 114/94
[2017-02-16 09:55] VITALS: BP 126/82
[~2017-03-16] VITALS: Ht 172.7 cm; Wt 79.0 kg
[~2017-03-16 09:45] MED LIST changes: -ROSU20TA28 PO; +ROSU20TA30 PO
[2017-03-16 10:25] VITALS: BP 131/93
== END 2017-03-20 | disposition home or self-care (01) ==
LOC: SDC 09:45
PROVIDERS: ATTEND Internal Medicine
DX: D75.1 Secondary polycythemia (principal)
CPT/HCPCS: 99195

== ENCOUNTER 2017-07-06 09:50 | Outpatient (RCR) | payer MEDICARE, MEDICAID ==
[2017-04-13 10:22] VITALS: BP 119/71
[2017-05-11 10:00] VITALS: BP 115/83
[2017-06-08 10:09] VITALS: BP 115/83
[~2017-07-06] VITALS: Ht 172.7 cm; Wt 79.0 kg
[2017-07-06 10:30] VITALS: BP 115/79
== END 2017-07-12 | disposition home or self-care (01) ==
LOC: SDC 09:50
PROVIDERS: ATTEND Internal Medicine
DX: D75.1 Secondary polycythemia (principal)
CPT/HCPCS: 36591; 36592; 99195

== ENCOUNTER 2017-10-10 09:47 | Outpatient (RCR) | payer MEDICARE, MEDICAID ==
[2017-08-03 11:05] VITALS: BP 129/95
[2017-09-02 09:45] VITALS: BP 130/89
[~2017-10-10] VITALS: Ht 172.7 cm; Wt 79.0 kg
[~2017-10-10 09:47] MED LIST changes: -ROSU20TA30 PO; +ROSU20TA31 PO
[2017-10-10 09:59] VITALS: BP 126/84
== END 2017-11-01 | disposition home or self-care (01) ==
LOC: SDC 09:47
PROVIDERS: ATTEND Internal Medicine
DX: D75.1 Secondary polycythemia (principal)
CPT/HCPCS: 36592; 99195

== ENCOUNTER 2017-11-09 09:52 | Outpatient (RCR) | payer MEDICARE, MEDICAID ==
[~2017-11-09] VITALS: Ht 172.7 cm; Wt 79.0 kg
[2017-11-09 10:13] VITALS: BP 128/88
== END 2017-11-27 | disposition home or self-care (01) ==
LOC: SDC 09:52
PROVIDERS: ATTEND Internal Medicine
DX: D75.1 Secondary polycythemia (principal)
CPT/HCPCS: 36592

== ENCOUNTER 2017-11-23 18:28 | Emergency (ER) | payer MEDICARE, MEDICAID ==
[~2017-11-23] VITALS: Ht 175.3 cm; Wt 77.6 kg
--- OUTSIDE RECORDS SUMMARY | 2017-11-23 18:37 | XMS REPORT | Continuity of Care Document ---
Author Author [facility] Organization [facility] Address Unknown Phone Unavailable Allergies Active Description Code Type Severity Reaction Onset Reported/Identified Relationship to Patient Clinical Status Yes NKANo Known Allergies NKA Miscellaneous Allergy Unknown N/A 04/03/2005 Yes No Known Drug Allergies [id number] Drug Allergy Mild N/A 07/29/2008 Yes No Known Drug Allergies [id number] Drug Allergy Unknown N/A 10/20/2016 Medications There is no data. Problems Date Dx Coded Attending Type Code Diagnosis Diagnosed By 06/12/2009 Ot 327.24 06/12/2009 Ot 427.31 06/12/2009 Ot 496 07/13/2009 Ot 272.4 07/13/2009 Ot 401.9 07/13/2009 Ot 427.31 07/13/2009 Ot 496 07/13/2009 Ot V58.61 09/08/2009 Ot 287.5 09/08/2009 Ot 427.31 09/08/2009 Ot 442.2 09/08/2009 Ot 599.71 09/08/2009 Ot 789.09 09/08/2009 Ot 799.02 09/08/2009 Ot V15.82 09/08/2009 Ot V58.61 09/09/2009 Ot 564.00 09/09/2009 Ot 789.04 09/09/2009 Ot V58.61 09/09/2009 Ot V58.65 09/09/2009 Ot V58.69 10/30/2009 Ot 401.9 10/30/2009 Ot 427.31 10/30/2009 Ot 496 10/30/2009 Ot V58.61 12/30/2009 Ot 211.3 12/30/2009 Ot 427.31 12/30/2009 Ot 496 12/30/2009 Ot 562.10 12/30/2009 Ot 569.0 12/30/2009 Ot V58.61 02/02/2010 Ot 401.9 02/02/2010 Ot 427.31 02/02/2010 Ot 496 02/02/2010 Ot V58.61 05/12/2010 Ot 401.9 HYPERTENSION NOS 05/12/2010 Ot 427.31 ATRIAL FIBRILLATION 05/12/2010 Ot 496 CHR AIRWAY OBSTRUCT NEC 05/12/2010 Ot V58.61 ANTICOAGULANTS,LT,CURRENT USE 06/12/2010 Ot 272.4 HYPERLIPIDEMIA NEC/NOS 06/12/2010 Ot 401.9 HYPERTENSION NOS 06/12/2010 Ot 416.8 CHR PULMON HEART DIS NEC 06/12/2010 Ot 427.31 ATRIAL FIBRILLATION 06/12/2010 Ot 496 CHR AIRWAY OBSTRUCT NEC 06/12/2010 Ot 785.0 TACHYCARDIA NOS 06/12/2010 Ot V15.82 HISTORY OF TOBACCO USE 06/12/2010 Ot V46.2 SUPPLEMENTAL OXYGEN 06/22/2010 Ot 416.8 CHR PULMON HEART DIS NEC 06/22/2010 Ot 427.31 ATRIAL FIBRILLATION 06/22/2010 Ot 428.43 ACUTE CHRONIC SYSTOLIC/DIALSTOLIC HRT FA 06/22/2010 Ot 458.29 OTHER IATROGENIC HYPOTENSION 06/22/2010 Ot 491.21 OBSTR CHRONIC BRONCHITIS, W (ACUTE) EXAC 06/22/2010 Ot V15.82 HISTORY OF TOBACCO USE 08/30/2010 Ot 401.9 HYPERTENSION NOS 08/30/2010 Ot 427.31 ATRIAL FIBRILLATION 08/30/2010 Ot 496 CHR AIRWAY OBSTRUCT NEC 08/30/2010 Ot V58.61 ANTICOAGULANTS,LT,CURRENT USE 12/01/2010 Ot 401.9 HYPERTENSION NOS 12/01/2010 Ot 427.31 ATRIAL FIBRILLATION 12/01/2010 Ot 496 CHR AIRWAY OBSTRUCT NEC 12/01/2010 Ot V58.61 ANTICOAGULANTS,LT,CURRENT USE 02/13/2011 Ot 414.01 CORONARY ATHEROSCLEROSIS OF [place] CORON 02/13/2011 Ot 414.8 CHR ISCHEMIC HRT DIS NEC 02/13/2011 Ot 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 02/13/2011 Ot 427.31 ATRIAL FIBRILLATION 02/13/2011 Ot 428.0 CONGESTIVE HEART FAILURE NOS 02/13/2011 Ot 428.22 CHRONIC SYSTOLIC HRT FAILURE 02/13/2011 Ot 458.9 HYPOTENSION NOS 02/13/2011 Ot 496 CHR AIRWAY OBSTRUCT NEC 02/13/2011 Ot 585.9 CHRONIC KIDNEY DISEASE, UNSPECIFIED 02/13/2011 Ot V15.82 HISTORY OF TOBACCO USE 02/13/2011 Ot V46.2 SUPPLEMENTAL OXYGEN 02/13/2011 Ot V58.61 ANTICOAGULANTS,LT,CURRENT USE 03/09/2011 Ot 272.4 HYPERLIPIDEMIA NEC/NOS 03/09/2011 Ot 414.01 CORONARY ATHEROSCLEROSIS OF [place] CORON 03/09/2011 Ot 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 03/09/2011 Ot 427.31 ATRIAL FIBRILLATION 03/09/2011 Ot 428.0 CONGESTIVE HEART FAILURE NOS 03/09/2011 Ot 428.22 CHRONIC SYSTOLIC HRT FAILURE 03/09/2011 Ot 458.9 HYPOTENSION NOS 03/09/2011 Ot 496 CHR AIRWAY OBSTRUCT NEC 03/09/2011 Ot 785.0 TACHYCARDIA NOS 03/09/2011 Ot V45.82 PERCUTANEOUS TRANSLUM CORON ANGIOPLASTY 03/24/2011 Ot V58.61 ANTICOAGULANTS,LT,CURRENT USE 03/24/2011 Ot V58.83 ENCOUNTER FOR THERAPEUTIC DRUG MONITORIN 04/01/2011 Ot 038.9 SEPTICEMIA NOS 04/01/2011 Ot 275.2 DIS MAGNESIUM METABOLISM 04/01/2011 Ot 276.8 HYPOPOTASSEMIA 04/01/2011 Ot 410.71 AC MYOCARDIAL INFARCT,SUBENDO INFARCT,IN 04/01/2011 Ot 414.01 CORONARY ATHEROSCLEROSIS OF [place] CORON 04/01/2011 Ot 414.8 CHR ISCHEMIC HRT DIS NEC 04/01/2011 Ot 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 04/01/2011 Ot 427.31 ATRIAL FIBRILLATION 04/01/2011 Ot 428.0 CONGESTIVE HEART FAILURE NOS 04/01/2011 Ot 428.23 ACUTE CHRONIC SYSTOLIC HRT FAILURE 04/01/2011 Ot 486 PNEUMONIA, ORGANISM NOS 04/01/2011 Ot 491.21 OBSTR CHRONIC BRONCHITIS, W (ACUTE) EXAC 04/01/2011 Ot 518.84 ACUTE AND CHRONIC RESPIRATORY FAILURE 04/01/2011 Ot 995.91 SEPSIS 04/01/2011 Ot V45.82 PERCUTANEOUS TRANSLUM CORON ANGIOPLASTY 04/01/2011 Ot V58.61 ANTICOAGULANTS,LT,CURRENT USE 04/04/2011 Ot 427.31 ATRIAL FIBRILLATION 04/04/2011 Ot 780.4 DIZZINESS AND GIDDINESS 04/26/2011 Ot 786.05 SHORTNESS OF BREATH 07/04/2011 Ot 401.9 HYPERTENSION NOS 07/04/2011 Ot 427.31 ATRIAL FIBRILLATION 07/04/2011 Ot 496 CHR AIRWAY OBSTRUCT NEC 07/04/2011 Ot V58.61 ANTICOAGULANTS,LT,CURRENT USE 07/07/2011 Ot 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 07/07/2011 Ot 496 CHR AIRWAY OBSTRUCT NEC 07/21/2011 Ot 041.7 PSEUDOMONAS INFECT NOS 10/04/2011 Ot 401.9 HYPERTENSION NOS 10/04/2011 Ot 427.31 ATRIAL FIBRILLATION 10/04/2011 Ot 496 CHR AIRWAY OBSTRUCT NEC 10/04/2011 Ot V58.61 ANTICOAGULANTS,LT,CURRENT USE 01/23/2012 Ot 401.9 HYPERTENSION NOS 01/23/2012 Ot 427.31 ATRIAL FIBRILLATION 01/23/2012 Ot 496 CHR AIRWAY OBSTRUCT NEC 01/23/2012 Ot V58.61 ANTICOAGULANTS,LT,CURRENT USE 02/29/2012 Ot 401.9 HYPERTENSION NOS 02/29/2012 Ot 427.31 ATRIAL FIBRILLATION 02/29/2012 Ot 496 CHR AIRWAY OBSTRUCT NEC 02/29/2012 Ot V58.61 ANTICOAGULANTS,LT,CURRENT USE 06/06/2012 Ot 401.9 HYPERTENSION NOS 06/06/2012 Ot 427.31 ATRIAL FIBRILLATION 06/06/2012 Ot 496 CHR AIRWAY OBSTRUCT NEC 06/06/2012 Ot V58.61 ANTICOAGULANTS,LT,CURRENT USE 06/06/2012 Ot V58.69 OTH MED,LT, CURRENT USE 09/12/2012 CRISTINA MEADOWS MD Ot 401.9 HYPERTENSION NOS 09/12/2012 CRISTINA MEADOWS MD Ot 427.31 ATRIAL FIBRILLATION 09/12/2012 CRISTINA MEADOWS MD Ot 496 CHR AIRWAY OBSTRUCT NEC 09/12/2012 CRISTINA MEADOWS MD Ot V58.61 ANTICOAGULANTS,LT,CURRENT USE 12/21/2012 CRISTINA MEADOWS MD Ot 401.9 HYPERTENSION NOS 12/21/2012 CRISTINA MEADOWS MD Ot 427.31 ATRIAL FIBRILLATION 12/21/2012 CRISTINA MEADOWS MD Ot 496 CHR AIRWAY OBSTRUCT NEC 12/21/2012 CRISTINA MEADOWS MD Ot V58.61 ANTICOAGULANTS,LT,CURRENT USE 12/21/2012 CARLITO KWONG, ANGELA A Ot 493.00 EXTRINSIC ASTHMA, NOS 02/15/2013 CARLITO KWONG, ANGELA A Ot 493.00 EXTRINSIC ASTHMA, NOS 04/02/2013 CRISTINA MEADOWS MD Ot 401.9 HYPERTENSION NOS 04/02/2013 CRISTINA MEADOWS MD Ot 427.31 ATRIAL FIBRILLATION 04/02/2013 CRISTINA MEADOWS MD Ot 496 CHR AIRWAY OBSTRUCT NEC 04/02/2013 CRISTINA MEADOWS MD Ot V58.61 ANTICOAGULANTS,LT,CURRENT USE 07/05/2013 CRISTINA MEADOWS MD Ot 401.9 HYPERTENSION NOS 07/05/2013 CRISTINA MEADOWS MD Ot 427.31 ATRIAL FIBRILLATION 07/05/2013 CRISTINA MEADOWS MD Ot 496 CHR AIRWAY OBSTRUCT NEC 07/05/2013 CRISTINA MEADOWS MD Ot V58.61 ANTICOAGULANTS,LT,CURRENT USE 10/07/2013 CRISTINA MEADOWS MD Ot 401.9 HYPERTENSION NOS 10/07/2013 CRISTINA MEADOWS MD Ot 427.31 ATRIAL FIBRILLATION 10/07/2013 CRISTINA MEADOWS MD Ot 496 CHR AIRWAY OBSTRUCT NEC 10/07/2013 CRISTINA MEADOWS MD Ot V58.61 ANTICOAGULANTS,LT,CURRENT USE 02/05/2014 Ot 272.4 02/11/2014 Ot 272.4 11/22/2014 Ot 272.4 11/22/2014 Ot 401.9 11/22/2014 Ot 726.33 11/22/2014 Ot 272.4 11/22/2014 Ot 496 11/22/2014 Ot 789.59 11/22/2014 Ot 272.4 11/22/2014 Ot 401.9 11/22/2014 Ot 272.4 11/22/2014 Ot 414.00 11/22/2014 Ot 276.7 11/22/2014 Ot 414.00 11/22/2014 Ot V58.69 11/22/2014 Ot 414.01 11/22/2014 Ot 786.50 11/22/2014 Ot 786.05 11/22/2014 Ot 272.4 11/22/2014 Ot V58.69 11/22/2014 Ot V58.83 11/22/2014 Ot 272.4 11/22/2014 Ot 414.00 11/22/2014 KRISTIN FISH Ot 272.4 11/22/2014 KRISTIN FISH Ot 414.00 11/22/2014 Ot 493.00 11/22/2014 ANTOLIN PEARL MD Ot 272.4 11/22/2014 ANTOLIN PEARL MD Ot 414.00 11/22/2014 Ot 493.00 11/22/2014 ANOTLIN PEARL MD Ot 272.4 11/22/2014 RYANNE MD, BASHAR J Ot 397.0 11/22/2014 RYANNE KWONG, BASHAR J Ot 401.9 11/22/2014 RYANNE KWONG, YOSSIHAR J Ot 414.00 11/22/2014 RYANNE KWONG, BASHAR J Ot 424.0 11/22/2014 RYANNE KWONG, BASHAR J Ot 427.31 11/22/2014 RYANNE KWONG, BASHAR J Ot 428.0 11/22/2014 RYANNE KWONG, YOSSIHAR J Ot 272.4 11/22/2014 RYANNE KWONG, BASHAR J Ot 401.9 11/22/2014 RYANNE KWONG, BASHAR J Ot 414.00 11/22/2014 RYANNE KWONG, BASHAR J Ot 427.31 11/22/2014 RYANNE KWONG, YOSSIHAR J Ot 428.0 11/22/2014 RYANNE KWONG, YOSSIHAR J Ot 496 11/22/2014 RYANNE KWONG, YOSSIHAR J Ot 760.9 11/22/2014 RYANNE KWONG, YOSSIHAR J Ot 272.4 11/22/2014 RYANNE KWONG, YOSSIHAR J Ot 401.9 11/22/2014 RYANNE KWONG, YOSSIHAR J Ot 414.00 11/22/2014 RYANNE KWONG, YOSSIHAR J Ot 427.31 11/22/2014 RYANNE KWONG, YOSSIHAR J Ot 428.0 11/22/2014 RYANNE KWONG, YOSSIHAR J Ot 496 11/22/2014 RYANNE KWONG, ANTOLIN J Ot 786.09 11/22/2014 ABDIEL KWONG, CRISTINA Drake Ot 242.90 11/22/2014 ABDIEL KWONG, CRISTINA Drake Ot 427.31 11/22/2014 CRISTINA MEADOWS MD Ot V58.61 11/22/2014 Ot 401.9 11/22/2014 Ot 427.31 11/22/2014 Ot 496 11/22/2014 Ot V58.61 11/22/2014 Ot 272.4 11/22/2014 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 Ot 272.4 11/22/2014 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 Ot 414.00 11/22/2014 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 Ot 272.4 11/22/2014 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 Ot 414.00 11/22/2014 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 Ot 272.4 11/22/2014 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 Ot 414.00 08/18/2015 Ot 496 CHR AIRWAY OBSTRUCT NEC 08/18/2015 Ot 789.59 OTHER ASCITES 08/18/2015 Ot 272.4 HYPERLIPIDEMIA NEC/NOS 08/18/2015 Ot 401.9 HYPERTENSION NOS 08/18/2015 Ot 272.4 HYPERLIPIDEMIA NEC/NOS 08/18/2015 Ot 414.00 CORON ATHEROSCLER NOS TYPE VESSEL, NATIV 08/18/2015 Ot 276.7 HYPERPOTASSEMIA 08/18/2015 Ot 414.00 CORON ATHEROSCLER NOS TYPE VESSEL, NATIV 08/18/2015 Ot V58.69 OTH MED,LT, CURRENT USE 08/18/2015 Ot 414.01 CORONARY ATHEROSCLEROSIS OF [place] CORON 08/18/2015 Ot 786.50 CHEST PAIN NOS 08/18/2015 Ot 786.05 SHORTNESS OF BREATH 08/18/2015 Ot 272.4 HYPERLIPIDEMIA NEC/NOS 08/18/2015 Ot V58.69 OTH MED,LT, CURRENT USE 08/18/2015 Ot V58.83 ENCOUNTER FOR THERAPEUTIC DRUG MONITORIN 08/18/2015 Ot 272.4 HYPERLIPIDEMIA NEC/NOS 08/18/2015 Ot 414.00 CORON ATHEROSCLER NOS TYPE VESSEL, NATIV 08/18/2015 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 Ot 272.4 HYPERLIPIDEMIA NEC/NOS 08/18/2015 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 Ot 414.00 CORON ATHEROSCLER NOS TYPE VESSEL, NATIV 08/18/2015 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 Ot E78.4 OTHER HYPERLIPIDEMIA 08/18/2015 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 Ot I25.10 ATHSCL HEART DISEASE OF [place] CORONARY 08/18/2015 Ot 493.00 EXTRINSIC ASTHMA, NOS 08/18/2015 ANTOLIN PEARL MD Ot 272.4 HYPERLIPIDEMIA NEC/NOS 08/18/2015 ANTOLIN PEARL MD Ot 414.00 CORON ATHEROSCLER NOS TYPE VESSEL, NATIV 08/18/2015 Ot 493.00 EXTRINSIC ASTHMA, NOS 08/18/2015 ANTOLIN PEARL MD Ot 272.4 HYPERLIPIDEMIA NEC/NOS 08/18/2015 ANTOLIN PEARL MD Ot 397.0 TRICUSPID VALVE DISEASE 08/18/2015 ANTOLIN PEARL MD Ot 401.9 HYPERTENSION NOS 08/18/2015 ANTOLIN PEARL MD Ot 414.00 CORON ATHEROSCLER NOS TYPE VESSEL, NATIV 08/18/2015 ANTOLIN PEARL MD Ot 424.0 MITRAL VALVE DISORDER 08/18/2015 ANTOLIN PEARL MD Ot 427.31 ATRIAL FIBRILLATION 08/18/2015 ANTOLIN PEARL MD Ot 428.0 CONGESTIVE HEART FAILURE NOS 08/18/2015 ANTOLIN PEARL MD Ot 272.4 HYPERLIPIDEMIA NEC/NOS 08/18/2015 ANTOLIN PEARL MD Ot 401.9 HYPERTENSION NOS 08/18/2015 ANTOLIN PEARL MD Ot 414.00 CORON ATHEROSCLER NOS TYPE VESSEL, NATIV 08/18/2015 ANTOLIN PEARL MD Ot 427.31 ATRIAL FIBRILLATION 08/18/2015 ANTOLIN PEARL MD Ot 428.0 CONGESTIVE HEART FAILURE NOS 08/18/2015 ANTOLIN PEARL MD Ot 496 CHR AIRWAY OBSTRUCT NEC 08/18/2015 ANTOLIN PEARL MD Ot 760.9 MATERNAL COND NOS AFF NB 08/18/2015 ANTOLIN PEARL MD Ot 272.4 HYPERLIPIDEMIA NEC/NOS 08/18/2015 ANTOLIN PEARL MD Ot 401.9 HYPERTENSION NOS 08/18/2015 ANTOLIN PEARL MD Ot 414.00 CORON ATHEROSCLER NOS TYPE VESSEL, NATIV 08/18/2015 ANTOLIN PEARL MD Ot 427.31 ATRIAL FIBRILLATION 08/18/2015 ANTOLIN PEARL MD Ot 428.0 CONGESTIVE HEART FAILURE NOS 08/18/2015 ANTOLIN PEARL MD Ot 496 CHR AIRWAY OBSTRUCT NEC 08/18/2015 ANTOLIN PEARL MD Ot 786.09 RESPIRATORY ABNORM NEC 08/18/2015 CRISTINA MEADOWS MD Ot 242.90 THYROTOX NOS NO CRISIS 08/18/2015 CRISTINA MEADOWS MD Ot 427.31 ATRIAL FIBRILLATION 08/18/2015 CRISTINA MEADOWS MD Ot V58.61 ANTICOAGULANTS,LT,CURRENT USE 08/18/2015 Ot 401.9 HYPERTENSION NOS 08/18/2015 Ot 427.31 ATRIAL FIBRILLATION 08/18/2015 Ot 496 CHR AIRWAY OBSTRUCT NEC 08/18/2015 Ot V58.61 ANTICOAGULANTS,LT,CURRENT USE 08/18/2015 Ot 272.4 HYPERLIPIDEMIA NEC/NOS 08/19/2015 CARLITO KWONG, ANGELA Chavarria Ot J44.1 CHRONIC OBSTRUCTIVE PULMONARY DISEASE W 09/18/2015 CARLITO KWONG, ANGELA A Ot J44.1 CHRONIC OBSTRUCTIVE PULMONARY DISEASE W 09/26/2015 CARLITO KWONG, ANGELA A Ot J44.1 CHRONIC OBSTRUCTIVE PULMONARY DISEASE W 09/29/2015 Ot 272.4 HYPERLIPIDEMIA NEC/NOS 09/29/2015 Ot 401.9 HYPERTENSION NOS 11/16/2015 CARLITO KWONG, ANGELA A Ot J44.1 CHRONIC OBSTRUCTIVE PULMONARY DISEASE W 05/24/2016 Ot 272.4 HYPERLIPIDEMIA NEC/NOS 05/24/2016 Ot 414.00 CORON ATHEROSCLER NOS TYPE VESSEL, NATIV 05/24/2016 Ot 276.7 HYPERPOTASSEMIA 05/24/2016 Ot 414.00 CORON ATHEROSCLER NOS TYPE VESSEL, NATIV 05/24/2016 Ot V58.69 OTH MED,LT, CURRENT USE 05/24/2016 Ot 414.01 CORONARY ATHEROSCLEROSIS OF [place] CORON 05/24/2016 Ot 786.50 CHEST PAIN NOS 05/24/2016 Ot 786.05 SHORTNESS OF BREATH 05/24/2016 Ot 272.4 HYPERLIPIDEMIA NEC/NOS 05/24/2016 Ot V58.69 OTH MED,LT, CURRENT USE 05/24/2016 Ot V58.83 ENCOUNTER FOR THERAPEUTIC DRUG MONITORIN 05/24/2016 Ot 272.4 HYPERLIPIDEMIA NEC/NOS 05/24/2016 Ot 414.00 CORON ATHEROSCLER NOS TYPE VESSEL, NATIV 05/24/2016 FISHKRISTIN WILSON ICE CREAM TRUCK DRIVER Ot 272.4 HYPERLIPIDEMIA NEC/NOS 05/24/2016 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 Ot 414.00 CORON ATHEROSCLER NOS TYPE VESSEL, NATIV 05/24/2016 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 Ot E78.4 OTHER HYPERLIPIDEMIA 05/24/2016 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 Ot I25.10 ATHSCL HEART DISEASE OF [place] CORONARY 05/24/2016 Ot 493.00 EXTRINSIC ASTHMA, NOS 05/24/2016 RYANNE KWONG, ANTOLIN Etienne Ot 272.4 HYPERLIPIDEMIA NEC/NOS 05/24/2016 ANTOLIN PEARL MD Ot 414.00 CORON ATHEROSCLER NOS TYPE VESSEL, NATIV 05/24/2016 Ot 493.00 EXTRINSIC ASTHMA, NOS 05/24/2016 ANTOLIN PEARL MD Ot 272.4 HYPERLIPIDEMIA NEC/NOS 05/24/2016 ANTOLIN PEARL MD Ot 397.0 TRICUSPID VALVE DISEASE 05/24/2016 ANTOLIN PEARL MD Ot 401.9 HYPERTENSION NOS 05/24/2016 ANTOLIN PEARL MD Ot 414.00 CORON ATHEROSCLER NOS TYPE VESSEL, NATIV 05/24/2016 ANTOLIN PEARL MD Ot 424.0 MITRAL VALVE DISORDER 05/24/2016 ANTOLIN PEARL MD Ot 427.31 ATRIAL FIBRILLATION 05/24/2016 ANTOLIN PEARL MD Ot 428.0 CONGESTIVE HEART FAILURE NOS 05/24/2016 ANTOLIN PEARL MD Ot 272.4 HYPERLIPIDEMIA NEC/NOS 05/24/2016 ANTOLIN PEARL MD Ot 401.9 HYPERTENSION NOS 05/24/2016 ANTOLIN PEARL MD Ot 414.00 CORON ATHEROSCLER NOS TYPE VESSEL, NATIV 05/24/2016 ANTOLIN PEARL MD Ot 427.31 ATRIAL FIBRILLATION 05/24/2016 ANTOLIN PEARL MD Ot 428.0 CONGESTIVE HEART FAILURE NOS 05/24/2016 ANTOLIN PEARL MD Ot 496 CHR AIRWAY OBSTRUCT NEC 05/24/2016 ANTOLIN PEARL MD Ot 760.9 MATERNAL COND NOS AFF NB 05/24/2016 ANTOLIN PEARL MD Ot 272.4 HYPERLIPIDEMIA NEC/NOS 05/24/2016 ANTOLIN PEARL MD Ot 401.9 HYPERTENSION NOS 05/24/2016 ANTOLIN PEARL MD Ot 414.00 CORON ATHEROSCLER NOS TYPE VESSEL, NATIV 05/24/2016 ANTOLIN PEARL MD Ot 427.31 ATRIAL FIBRILLATION 05/24/2016 ANTOLIN PEARL MD Ot 428.0 CONGESTIVE HEART FAILURE NOS 05/24/2016 ANTOLIN PEARL MD Ot 496 CHR AIRWAY OBSTRUCT NEC 05/24/2016 ANTOLIN PEARL MD Ot 786.09 RESPIRATORY ABNORM NEC 05/24/2016 CRISTINA MEADOWS MD Ot 242.90 THYROTOX NOS NO CRISIS 05/24/2016 CRISTINA MEADOWS MD Ot 427.31 ATRIAL FIBRILLATION 05/24/2016 CRISTINA MEADOWS MD Ot V58.61 ANTICOAGULANTS,LT,CURRENT USE 05/24/2016 Ot 401.9 HYPERTENSION NOS 05/24/2016 Ot 427.31 ATRIAL FIBRILLATION 05/24/2016 Ot 496 CHR AIRWAY OBSTRUCT NEC 05/24/2016 Ot V58.61 ANTICOAGULANTS,LT,CURRENT USE 05/24/2016 Ot 272.4 HYPERLIPIDEMIA NEC/NOS 05/24/2016 CARLITO KWONG, ANGELA Chavarria Ot J44.1 CHRONIC OBSTRUCTIVE PULMONARY DISEASE W 05/30/2016 ANTOLIN PEARL MD Ot E78.2 MIXED HYPERLIPIDEMIA 05/30/2016 ANTOLIN PEARL MD Ot I11.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 05/30/2016 ANTOLIN PEARL MD Ot I25.10 ATHSCL HEART DISEASE OF [place] CORONARY 05/30/2016 ANTOLIN PEARL MD Ot I48.0 PAROXYSMAL ATRIAL FIBRILLATION 05/30/2016 ANTOLIN PEARL MD Ot I50.9 HEART FAILURE, UNSPECIFIED 06/08/2016 ANTOLIN PEARL MD Ot E78.2 MIXED HYPERLIPIDEMIA 06/08/2016 ANTOLIN PEARL MD Ot I11.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 06/08/2016 ANTOLIN PEARL MD Ot I25.10 ATHSCL HEART DISEASE OF [place] CORONARY 06/08/2016 ANTOLIN PEARL MD Ot I48.0 PAROXYSMAL ATRIAL FIBRILLATION 06/08/2016 ANTOLIN PEARL MD Ot I48.91 UNSPECIFIED ATRIAL FIBRILLATION 06/08/2016 ANTOLIN PEARL MD Ot I50.9 HEART FAILURE, UNSPECIFIED 06/09/2016 ANTOLIN PEARL MD Ot E78.5 HYPERLIPIDEMIA, UNSPECIFIED 06/09/2016 ANTOLIN PEARL MD Ot I12.9 HYPERTENSIVE CHRONIC KIDNEY DISEASE W ST 06/09/2016 ANTOLIN PEARL MD Ot I25.10 ATHSCL HEART DISEASE OF [place] CORONARY 06/09/2016 ANTOLIN PEARL MD Ot I27.81 COR PULMONALE (CHRONIC) 06/09/2016 ANTOLIN PEARL MD Ot I48.0 PAROXYSMAL ATRIAL FIBRILLATION 06/09/2016 ANTOLIN PEARL MD Ot I50.22 CHRONIC SYSTOLIC (CONGESTIVE) HEART FAIL 06/09/2016 ANTOLIN PEARL MD Ot J44.9 CHRONIC OBSTRUCTIVE PULMONARY DISEASE, U 06/09/2016 ANTOLIN PEARL MD Ot N18.9 CHRONIC KIDNEY DISEASE, UNSPECIFIED 06/09/2016 ANTOLIN PEARL MD Ot R94.39 ABNORMAL RESULT OF OTHER CARDIOVASCULAR 06/09/2016 ANTOLIN PEARL MD Ot Z79.01 EXECUTIVE TALENT ACQUISITION CONSULTANT (CURRENT) USE OF ANTICOAGULANT 06/09/2016 ANTOLIN PEARL MD Ot Z79.899 OTHER EXECUTIVE TALENT ACQUISITION CONSULTANT (CURRENT) DRUG THERAPY 06/09/2016 ANTOLIN PEARL MD Ot Z87.891 PERSONAL HISTORY OF NICOTINE DEPENDENCE 06/09/2016 ANTOLIN PEARL MD Ot Z95.5 PRESENCE OF CORONARY ANGIOPLASTY IMPLANT 06/09/2016 ANTOLIN PEARL MD Ot Z99.81 DEPENDENCE ON SUPPLEMENTAL OXYGEN 06/17/2016 CRISTINA MEAODWS MD Ot D75.1 SECONDARY POLYCYTHEMIA 07/05/2016 ANTOLIN PEARL MD J Ot E78.2 MIXED HYPERLIPIDEMIA 07/05/2016 ANTOLIN PEARL MD Ot I11.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 07/05/2016 ANTOLIN PEARL MD Ot I25.10 ATHSCL HEART DISEASE OF [place] CORONARY 07/05/2016 ANOTLIN PEARL MD J Ot I48.0 PAROXYSMAL ATRIAL FIBRILLATION 07/05/2016 ANTOLIN PEARL MD Ot I48.91 UNSPECIFIED ATRIAL FIBRILLATION 07/05/2016 ANTOLIN PEARL MD Ot I50.9 HEART FAILURE, UNSPECIFIED 07/09/2016 ANTOLIN PEARL MD Ot E78.2 MIXED HYPERLIPIDEMIA 07/09/2016 ANTOLIN PEARL MD J Ot I11.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 07/09/2016 ANTOLIN PEARL MD Ot I25.10 ATHSCL HEART DISEASE OF [place] CORONARY 07/09/2016 ANTOLIN PEARL MD Ot I48.0 PAROXYSMAL ATRIAL FIBRILLATION 07/09/2016 ANTOLIN PEARL MD Ot I50.9 HEART FAILURE, UNSPECIFIED 07/13/2016 CRISTINA MEADOWS MD Ot D75.1 SECONDARY POLYCYTHEMIA 07/21/2016 CRISTINA MEADOWS MD Ot D75.1 SECONDARY POLYCYTHEMIA 07/28/2016 ANTOILN PEARL MD Ot E78.2 MIXED HYPERLIPIDEMIA 07/28/2016 ANTOLIN PEARL MD Ot I11.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 07/28/2016 ANTOLIN PEARL MD Ot I25.10 ATHSCL HEART DISEASE OF [place] CORONARY 07/28/2016 ANTOLIN PEARL MD Ot I48.0 PAROXYSMAL ATRIAL FIBRILLATION 07/28/2016 ANTOLIN PEARL MD Ot I48.91 UNSPECIFIED ATRIAL FIBRILLATION 07/28/2016 ANTOLIN PEARL MD Ot I50.9 HEART FAILURE, UNSPECIFIED 07/28/2016 CRISTINA MEADOWS MD Ot D75.1 SECONDARY POLYCYTHEMIA 08/03/2016 ANTOLIN PEARL MD Ot E78.2 MIXED HYPERLIPIDEMIA 08/03/2016 ANTOLIN PEARL MD Ot I11.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 08/03/2016 ANTOLIN PEARL MD Ot I25.10 ATHSCL HEART DISEASE OF [place] CORONARY 08/03/2016 ANTOLIN PEARL MD Ot I48.0 PAROXYSMAL ATRIAL FIBRILLATION 08/03/2016 ANTOLIN PEARL MD Ot I50.9 HEART FAILURE, UNSPECIFIED 08/09/2016 ANTOLIN PEARL MD Ot E78.2 MIXED HYPERLIPIDEMIA 08/09/2016 ANTOLIN PEARL MD Ot I11.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 08/09/2016 ANTOLIN PEARL MD Ot I25.10 ATHSCL HEART DISEASE OF [place] CORONARY 08/09/2016 ANTOLIN PEARL MD Ot I48.0 PAROXYSMAL ATRIAL FIBRILLATION 08/09/2016 ANTOLIN PEARL MD Ot I50.9 HEART FAILURE, UNSPECIFIED 08/25/2016 CRISTINA MEADOWS MD Ot D75.1 SECONDARY POLYCYTHEMIA 08/25/2016 CRISTINA MEADOWS MD Ot D75.1 SECONDARY POLYCYTHEMIA 09/13/2016 CRISTINA MEADOWS MD Ot D75.1 SECONDARY POLYCYTHEMIA 09/22/2016 CRISTINA MEADOWS MD Ot D75.1 SECONDARY POLYCYTHEMIA 09/23/2016 CRISTINA MEADOWS MD Ot D75.1 SECONDARY POLYCYTHEMIA 09/28/2016 CRISTINA MEADOWS MD Ot D75.1 SECONDARY POLYCYTHEMIA 09/28/2016 CRISTINA MEADOWS MD Ot D75.1 SECONDARY POLYCYTHEMIA 10/20/2016 Ot 493.00 EXTRINSIC ASTHMA, NOS 10/20/2016 Ot 493.00 EXTRINSIC ASTHMA, NOS 10/20/2016 Ot 401.9 HYPERTENSION NOS 10/20/2016 Ot 427.31 ATRIAL FIBRILLATION 10/20/2016 Ot 496 CHR AIRWAY OBSTRUCT NEC 10/20/2016 Ot V58.61 ANTICOAGULANTS,LT,CURRENT USE 10/20/2016 CARLITO KWONG, ANGELA Chavarria Ot J44.1 CHRONIC OBSTRUCTIVE PULMONARY DISEASE W 10/20/2016 CRISTINA MEADOWS MD Ot K92.1 MELENA 10/20/2016 CRISTINA MEADOWS MD Ot Z01.818 ENCOUNTER FOR OTHER PREPROCEDURAL EXAMIN 10/21/2016 ABDIEL KWONG, CRISTINA Drake Ot K92.1 MELENA 10/21/2016 ABDIEL KWONG, CRISTINA Drake Ot Z01.818 ENCOUNTER FOR OTHER PREPROCEDURAL EXAMIN 10/22/2016 ABDIEL KWONG, CRISTINA Drake Ot D12.2 BENIGN NEOPLASM OF ASCENDING COLON 10/22/2016 ABDIEL KWONG, CRISTINA Drake Ot D12.3 BENIGN NEOPLASM OF TRANSVERSE COLON 10/22/2016 ABDIEL KWONG, CRISTINA Drake Ot I48.1 PERSISTENT ATRIAL FIBRILLATION 10/22/2016 ABDIEL KWONG, CRISTINA Drake Ot J44.9 CHRONIC OBSTRUCTIVE PULMONARY DISEASE, U 10/22/2016 ABDIEL KWONG, CRISTINA Drake Ot K62.1 RECTAL POLYP 10/22/2016 ABDIEL KWONG, CRISTINA Drake Ot Z99.81 DEPENDENCE ON SUPPLEMENTAL OXYGEN 10/22/2016 ABDIEL KWONG, CRISTINA Drake Ot D75.1 SECONDARY POLYCYTHEMIA 10/26/2016 ABDIEL KWONG, CRISTINA Drake Ot K92.1 MELENA 10/26/2016 ABDIEL KWONG, CRISTINA Drake Ot Z01.818 ENCOUNTER FOR OTHER PREPROCEDURAL EXAMIN 10/26/2016 ABDIEL KWONG, CRISTINA Drake Ot D75.1 SECONDARY POLYCYTHEMIA 10/27/2016 ABDIEL KWONG, CRISTINA Drake Ot D75.1 SECONDARY POLYCYTHEMIA 11/03/2016 ABDIEL KWONG, CRISTINA Darke Ot D12.2 BENIGN NEOPLASM OF ASCENDING COLON 11/03/2016 ABDIEL KWONG, CRISTINA Drake Ot D12.3 BENIGN NEOPLASM OF TRANSVERSE COLON 11/03/2016 ABDIEL KWONG, CRISTINA Drake Ot I48.1 PERSISTENT ATRIAL FIBRILLATION 11/03/2016 ABDIEL KWONG, CRISTINA Drake Ot J44.9 CHRONIC OBSTRUCTIVE PULMONARY DISEASE, U 11/03/2016 ABDIEL KWONG, CRISTINA Drake Ot K62.1 RECTAL POLYP 11/03/2016 ABDIEL KWONG, CRISTINA Drake Ot Z99.81 DEPENDENCE ON SUPPLEMENTAL OXYGEN 11/18/2016 CRISTINA MEADOWS MD Ot D75.1 SECONDARY POLYCYTHEMIA 11/18/2016 CRISTINA MEADOWS MD Ot D75.1 SECONDARY POLYCYTHEMIA 11/18/2016 CRISTINA MEADOWS MD Ot D75.1 SECONDARY POLYCYTHEMIA 11/27/2016 CRISTINA MEADOWS MD Ot D75.1 SECONDARY POLYCYTHEMIA 12/20/2016 CRISTINA MEADOWS MD Ot D75.1 SECONDARY POLYCYTHEMIA 12/20/2016 ABDIEL KWONG, CRISTINA Drake Ot D75.1 SECONDARY POLYCYTHEMIA 12/21/2016 ABDIEL KWONG, CRISTINA Drake Ot D75.1 SECONDARY POLYCYTHEMIA 01/17/2017 CRISTY ANAND Ot E78.00 PURE HYPERCHOLESTEROLEMIA, UNSPECIFIED 01/17/2017 CRISTY ANAND Ot I10 ESSENTIAL (PRIMARY) HYPERTENSION 01/17/2017 CRISTY ANAND Ot I42.9 CARDIOMYOPATHY, UNSPECIFIED 01/17/2017 CRISTY ANAND Ot I48.91 UNSPECIFIED ATRIAL FIBRILLATION 01/17/2017 CRISTY ANAND Ot J44.9 CHRONIC OBSTRUCTIVE PULMONARY DISEASE, U 01/17/2017 CRISTY ANAND Ot S40.012A CONTUSION OF LEFT SHOULDER, INITIAL ENCO 01/17/2017 CRISTY ANAND Ot W18.30XA FALL ON SAME LEVEL, UNSPECIFIED, INITIAL 01/17/2017 CRISTY ANAND Ot Y92.[address] [facility] [address] IN [facility] NON-INSTITUT (PRIVATE 01/17/2017 CRISTY ANAND Ot Z87.891 PERSONAL HISTORY OF NICOTINE DEPENDENCE 01/19/2017 ABDIEL KWONG, CRISTINA Drake Ot D75.1 SECONDARY POLYCYTHEMIA 01/21/2017 ABDIEL KWONG, CRISTINA Drake Ot D75.1 SECONDARY POLYCYTHEMIA 02/01/2017 ABDIEL KWONG, CRISTINA Drake Ot D75.1 SECONDARY POLYCYTHEMIA 02/16/2017 ABDIEL KWONG, CRISTINA Drake Ot D75.1 SECONDARY POLYCYTHEMIA 03/16/2017 ABDILE KWONG, CRISTINA Drake Ot D75.1 SECONDARY POLYCYTHEMIA 03/16/2017 CRISTINA MEADOWS MD Ot D75.1 SECONDARY POLYCYTHEMIA 03/20/2017 CRISTINA MEADOWS MD Ot D75.1 SECONDARY POLYCYTHEMIA 04/13/2017 ABDIEL KWONG, CRISTINA Drake Ot D75.1 SECONDARY POLYCYTHEMIA 04/13/2017 CRISTINA MEADOWS MD Ot D75.1 SECONDARY POLYCYTHEMIA 04/13/2017 CRISTINA MEADOWS MD Ot D75.1 SECONDARY POLYCYTHEMIA 04/14/2017 ABDIEL KWONG, CRISTINA Drake Ot D75.1 SECONDARY POLYCYTHEMIA 05/11/2017 ABDIEL KWONG, CRISTINA Drake Ot D75.1 SECONDARY POLYCYTHEMIA 05/18/2017 CRISTINA MEADOWS MD Ot D75.1 SECONDARY POLYCYTHEMIA 06/08/2017 ABDIEL KWONG, CRISTINA Drake Ot D75.1 SECONDARY POLYCYTHEMIA 07/04/2017 ABDIEL KWONG, CRISTINA Drake Ot D75.1 SECONDARY POLYCYTHEMIA 07/06/2017 ABDIEL KWONG, CRISTINA Drake Ot D75.1 SECONDARY POLYCYTHEMIA 07/12/2017 ABDIEL KWONG, CRISTINA Drake Ot D75.1 SECONDARY POLYCYTHEMIA 07/13/2017 ABDIEL KWONG, CRISTINA Drake Ot D75.1 SECONDARY POLYCYTHEMIA 08/03/2017 ABDIEL KWONG, CRISTINA Drake Ot D75.1 SECONDARY POLYCYTHEMIA 08/04/2017 ABDIEL KWONG, CRISTINA Drake Ot D75.1 SECONDARY POLYCYTHEMIA 09/02/2017 ABDIEL KWONG, CRISTINA Drake Ot D75.1 SECONDARY POLYCYTHEMIA 09/19/2017 ABDIEL KWONG, CRISTINA Drake Ot D75.1 SECONDARY POLYCYTHEMIA 11/01/2017 ABDIEL KWONG, CRISTINA Drake Ot D75.1 SECONDARY POLYCYTHEMIA 11/02/2017 ABDIEL KWONG, CRISTINA Drake Ot D75.1 SECONDARY POLYCYTHEMIA 11/04/2017 ABDIEL KWONG, CRISTINA Drake Ot D75.1 SECONDARY POLYCYTHEMIA 11/07/2017 ABDIEL KWONG, CRISTINA Drake Ot D75.1 SECONDARY POLYCYTHEMIA 11/09/2017 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 Ot 272.4 HYPERLIPIDEMIA NEC/NOS 11/09/2017 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 Ot 414.00 CORON ATHEROSCLER NOS TYPE VESSEL, NATIV 11/09/2017 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 Ot E78.4 OTHER HYPERLIPIDEMIA 11/09/2017 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 Ot I25.10 ATHSCL HEART DISEASE OF [place] CORONARY 11/09/2017 Ot 493.00 EXTRINSIC ASTHMA, NOS 11/09/2017 ANTOLIN PEARL MD Ot 272.4 HYPERLIPIDEMIA NEC/NOS 11/09/2017 ANTOLIN PEARL MD Ot 414.00 CORON ATHEROSCLER NOS TYPE VESSEL, NATIV 11/09/2017 Ot 493.00 EXTRINSIC ASTHMA, NOS 11/09/2017 ANTOLIN PEARL MD Ot 272.4 HYPERLIPIDEMIA NEC/NOS 11/09/2017 ANTOLIN PEARL MD Ot 397.0 TRICUSPID VALVE DISEASE 11/09/2017 ANTOLIN PEARL MD Ot 401.9 HYPERTENSION NOS 11/09/2017 ANTOLIN PEARL MD Ot 414.00 CORON ATHEROSCLER NOS TYPE VESSEL, NATIV 11/09/2017 ANTOLIN PEARL MD Ot 424.0 MITRAL VALVE DISORDER 11/09/2017 ANTOLIN PEARL MD Ot 427.31 ATRIAL FIBRILLATION 11/09/2017 ANTOLIN PEARL MD Ot 428.0 CONGESTIVE HEART FAILURE NOS 11/09/2017 ANTOLIN PEARL MD Ot 272.4 HYPERLIPIDEMIA NEC/NOS 11/09/2017 ANTOLIN PEARL MD Ot 401.9 HYPERTENSION NOS 11/09/2017 ANTOLIN PEARL MD Ot 414.00 CORON ATHEROSCLER NOS TYPE VESSEL, NATIV 11/09/2017 ANTOLIN PEARL MD Ot 427.31 ATRIAL FIBRILLATION 11/09/2017 ANTOLIN PEARL MD Ot 428.0 CONGESTIVE HEART FAILURE NOS 11/09/2017 ANTOLIN PEARL MD Ot 496 CHR AIRWAY OBSTRUCT NEC 11/09/2017 ANTOLIN PEARL MD Ot 760.9 MATERNAL COND NOS AFF NB 11/09/2017 ANTOLIN PEARL MD Ot 272.4 HYPERLIPIDEMIA NEC/NOS 11/09/2017 ANTOLIN PEARL MD Ot 401.9 HYPERTENSION NOS 11/09/2017 ANTOLIN PEARL MD Ot 414.00 CORON ATHEROSCLER NOS TYPE VESSEL, NATIV 11/09/2017 ANTOLIN PEARL MD Ot 427.31 ATRIAL FIBRILLATION 11/09/2017 ANTOLIN PEARL MD Ot 428.0 CONGESTIVE HEART FAILURE NOS 11/09/2017 ANTOLIN PEARL MD Ot 496 CHR AIRWAY OBSTRUCT NEC 11/09/2017 ANTOLIN PEARL MD Ot 786.09 RESPIRATORY ABNORM NEC 11/09/2017 CRISTINA MEADOWS MD Ot 242.90 THYROTOX NOS NO CRISIS 11/09/2017 CRISTINA MEADOWS MD Ot 427.31 ATRIAL FIBRILLATION 11/09/2017 CRISTINA MEADOWS MD Ot V58.61 ANTICOAGULANTS,LT,CURRENT USE 11/09/2017 Ot 401.9 HYPERTENSION NOS 11/09/2017 Ot 427.31 ATRIAL FIBRILLATION 11/09/2017 Ot 496 CHR AIRWAY OBSTRUCT NEC 11/09/2017 Ot V58.61 ANTICOAGULANTS,LT,CURRENT USE 11/09/2017 Ot 272.4 HYPERLIPIDEMIA NEC/NOS 11/09/2017 CARLITO KWONG, ANGELA Chavarria Ot J44.1 CHRONIC OBSTRUCTIVE PULMONARY DISEASE W 11/09/2017 ANTOLIN PEARL MD Ot E78.2 MIXED HYPERLIPIDEMIA 11/09/2017 ANTOLIN PEARL MD Ot I11.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 11/09/2017 ANTOLIN PEARL MD Ot I25.10 ATHSCL HEART DISEASE OF [place] CORONARY 11/09/2017 ANTOLIN PEARL MD Ot I48.0 PAROXYSMAL ATRIAL FIBRILLATION 11/09/2017 ANTOLIN PEARL MD Ot I48.91 UNSPECIFIED ATRIAL FIBRILLATION 11/09/2017 ANTOLIN PEARL MD Ot I50.9 HEART FAILURE, UNSPECIFIED 11/09/2017 ANTOLIN PEARL MD Ot E78.2 MIXED HYPERLIPIDEMIA 11/09/2017 ANTOLIN PEARL MD Ot I11.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 11/09/2017 ANTOLIN PEARL MD Ot I25.10 ATHSCL HEART DISEASE OF [place] CORONARY 11/09/2017 ANTOLIN PEARL MD Ot I48.0 PAROXYSMAL ATRIAL FIBRILLATION 11/09/2017 ANTOLIN PEARL MD Ot I50.9 HEART FAILURE, UNSPECIFIED 11/09/2017 CRISTINA MEADOWS MD Ot D75.1 SECONDARY POLYCYTHEMIA 11/09/2017 CRISTINA MEADOWS MD Ot D75.1 SECONDARY POLYCYTHEMIA 11/10/2017 CRISTINA MEADOWS MD, Ot D75.1 SECONDARY POLYCYTHEMIA Procedures Code Description Performed By Performed On 37.23 RT/LEFT HEART CARD CATH 02/13/2011 88.53 LT HEART ANGIOCARDIOGRAM 02/13/2011 88.56 CORONAR ARTERIOGR-2 CATH 02/13/2011 38.93 VENOUS CATHETERIZATION NEC 03/22/2011 Results Test Result Range Automated blood complete blood count (hemogram) panel - 06/09/16 07:17 Blood leukocytes automated count (number/volume) 7.3 10*3/uL 4.3-11.0 Blood erythrocytes automated count (number/volume) 6.16 10*6/uL 4.35-5.85 Venous blood hemoglobin measurement (mass/volume) 18.4 g/dL 13.3-17.7 Blood hematocrit (volume fraction) 58 % 40-54 Automated erythrocyte mean corpuscular volume 93 [foz_us] 80-99 Automated erythrocyte mean corpuscular hemoglobin (mass per erythrocyte) 30 pg 25-34 Automated erythrocyte mean corpuscular hemoglobin concentration measurement ( mass/volume) 32 g/dL 32-36 Automated erythrocyte distribution width ratio 18.7 % 10.0-14.5 Automated blood platelet count (count/volume) 92 10*3/uL 130-400 Automated blood platelet mean volume measurement 10.1 [foz_us] 7.4-10.4 Complete urinalysis with reflex to culture - 06/09/16 07:17 Urine color determination YELLOW NRG Urine clarity determination CLEAR NRG Urine pH measurement by test strip 6 5-9 Specific gravity of urine by test strip 1.020 1.016- 1.022 Urine protein assay by test strip, semi-quantitative 3+ NEGATIVE Urine glucose detection by automated test strip NEGATIVE NEGATIVE Erythrocytes detection in urine sediment by light microscopy 2+ NEGATIVE Urine ketones detection by automated test strip NEGATIVE NEGATIVE Urine nitrite detection by test strip NEGATIVE NEGATIVE Urine total bilirubin detection by test strip NEGATIVE NEGATIVE Urine urobilinogen measurement by automated test strip (mass/volume) 1 mg/dL NORMAL Urine leukocyte esterase detection by dipstick 1+ NEGATIVE Automated urine sediment erythrocyte count by microscopy (number/high power field) [HPF] NRG Automated urine sediment leukocyte count by microscopy (number/high power field ) [HPF] NRG Bacteria detection in urine sediment by light microscopy NEGATIVE NRG Squamous epithelial cells detection in urine sediment by light microscopy 0-2 NRG Crystals detection in urine sediment by light microscopy NONE NRG Casts detection in urine sediment by light microscopy PRESENT NRG Mucus detection in urine sediment by light microscopy NEGATIVE NRG Complete urinalysis with reflex to culture NO NRG Hyaline casts detection in urine sediment by light microscopy 2-5 NRG PT panel in platelet poor plasma by coagulation assay - 06/09/16 07:17 Prothrombin time (PT) in platelet poor plasma by coagulation assay 13.1 s 12.2-14.7 INR in platelet poor plasma or blood by coagulation assay 1.0 0.8-1.4 Activated partial thromboplastin time (aPTT) in platelet poor plasma bycoagulation assay - 06/09/16 07:17 Activated partial thromboplastin time (aPTT) in platelet poor plasma bycoagulation assay 33 s 24-35 Comprehensive metabolic panel - 06/09/16 07:17 Serum or plasma sodium measurement (moles/volume) 142 mmol/L 135-145 Serum or plasma potassium measurement (moles/volume) 3.6 mmol/L 3.6-5.0 Serum or plasma chloride measurement (moles/volume) 98 mmol/L 98-107 Carbon dioxide 35 mmol/L 21-32 Serum or plasma anion gap determination (moles/volume) 9 mmol/L 5-14 Serum or plasma urea nitrogen measurement (mass/volume) 12 mg/dL 7-18 Serum or plasma creatinine measurement (mass/volume) 1.18 mg/dL 0.60-1.30 Serum or plasma urea nitrogen/creatinine mass ratio 10 NRG Serum or plasma creatinine measurement with calculation of estimated glomerular filtration rate 60 NRG Serum or plasma glucose measurement (mass/volume) 85 mg/dL 70-105 Serum or plasma calcium measurement (mass/volume) 8.9 mg/dL 8.5-10.1 Serum or plasma total bilirubin measurement (mass/volume) 1.2 mg/dL 0.1-1.0 Serum or plasma alkaline phosphatase measurement (enzymatic activity/volume) 78 U/L 40-136 Serum or plasma aspartate aminotransferase measurement (enzymatic activity/ volume) 31 U/L 5-34 Serum or plasma alanine aminotransferase measurement (enzymatic activity/volume ) 22 U/L 0-55 Serum or plasma protein measurement (mass/volume) 7.0 g/dL 6.4-8.2 Serum or plasma albumin measurement (mass/volume) 3.5 g/dL 3.2-4.5 Methicillin resistant Staphylococcus aureus (MRSA) screening culture - 07:17 Methicillin resistant Staphylococcus aureus (MRSA) screening culture NEG NRG Encounters ACCT No. Visit Date/Time Discharge Status Pt. Type Provider Facility Loc./Unit Complaint [id number] 11/02/2017 00:08:00 11/02/2017 23:59:59 CLS Outpatient CRISTINA MEADOWS MD [facility] POLYCYTHEMIA [id number] 10/10/2017 09:47:00 11/01/2017 00:01:00 DIS Outpatient CRISTINA MEADOWS MD [facility] POLYCYTHEMIA [id number] 07/06/2017 09:50:00 07/12/2017 00:01:00 DIS Outpatient CRISTINA MEADOWS MD [facility] POLYCYTHEMIA [id number] 03/16/2017 09:45:00 03/20/2017 00:01:00 DIS Outpatient CRISTINA MEADOWS MD [facility] POLYCYTHEMIA [id number] 01/17/2017 20:50:00 01/17/2017 23:03:00 DIS Emergency CRISTY ANAND [facility] ER L SHOULDER INJ [id number] 11/18/2016 09:43:00 11/27/2016 00:01:00 DIS Outpatient CRISTINA MEADOWS MD [facility] POLYCYTHEMIA [id number] 10/22/2016 08:50:00 10/22/2016 13:05:00 DIS Outpatient CRISTINA MEADOWS MD [facility] ENDO TERESA OCCULT POS/BLOOD IN STOOL [id number] 10/20/2016 06:11:00 10/20/2016 09:55:00 DIS Outpatient CRISTINA MEADOWS MD [facility] PREOP OCCULT + BLOOD IN STOOL [id number] 08/25/2016 12:50:00 09/13/2016 00:01:00 DIS Outpatient CRISTINA MEADOWS MD [facility] POLYCYTHEMIA [id number] 06/09/2016 07:00:00 06/09/2016 15:38:00 DIS Outpatient ANTOLIN PEARL MD [facility] CATH ABN STRESS TEST [id number] 06/02/2016 07:22:00 06/02/2016 23:59:59 CLS Outpatient ANTOLIN PEARL MD [facility] CARD AF,CAD,CHF,HTN,MIXED HYPERLIPIDEMIA, I48.0 [id number] 05/24/2016 12:26:00 05/24/2016 23:59:59 CLS Outpatient ANTOLIN PEARL MD [facility] CARD AF,CAD [id number] 11/17/2015 08:15:00 11/17/2015 23:59:59 CLS Preadmit ANGELA ESTEBAN MD [facility] COPD WITH ACUTE EXACERBATION [id number] 11/04/2015 08:00:00 11/16/2015 00:01:00 DIS Outpatient ANGELA ESTEBAN MD [facility] PULM COPD WITH ACUTE EXACERBATION [id number] 08/27/2013 09:24:00 10/07/2013 00:01:00 DIS Outpatient CRISTINA MEADOWS MD [facility] LAB COUMEDIN THERAPY,COPD,A FIB, ELEVATED DIG LEVEL [id number] 08/27/2013 09:21:00 08/27/2013 23:59:59 CLS Outpatient CRISTINA MEADOWS MD [facility] LAB [id number] 07/24/2013 07:56:00 07/24/2013 23:59:59 CLS Outpatient ANTOLIN PEARL MD [facility] LAB AF,CAD,CHF,COPD,HTN, HYPERLIPIDEMIA [id number] 06/08/2013 13:03:00 07/05/2013 00:01:00 DIS Outpatient CRISTINA MEADOWS MD [facility] LAB COUMEDIN THERAPY,COPD,A FIB, ELEVATED DIG LEVEL [id number] 06/05/2013 11:19:00 06/05/2013 23:59:59 CLS Outpatient ANTOLIN PEARL MD [facility] RAD AFIB,CAD,CHF,COPD [id number] 05/04/2013 13:05:00 05/04/2013 23:59:59 CLS Outpatient ANTOLIN PEARL MD [facility] CARD AFIB,CAD,CHF,COPD [id number] 03/21/2013 13:37:00 04/02/2013 00:01:00 DIS Outpatient CRISTINA MEADOWS MD [facility] LAB COUMEDIN THERAPY,COPD,A FIB, ELEVATED DIG LEVEL [id number] 11/17/2012 09:55:00 02/15/2013 00:01:00 DIS Outpatient CARLITO KWONG, ANGELA Chavarria [facility] SDC EXACERBATION ASTHMA [id number] 01/03/2013 09:07:00 01/03/2013 23:59:59 CLS Outpatient ANTOLIN PEARL MD [facility] LAB CAD,HYPERLIPIDEMIA [id number] 12/01/2012 09:04:00 12/21/2012 00:01:00 DIS Outpatient CRISTINA MEADOWS MD [facility] LAB COUMEDIN THERAPY,COPD,A FIB, ELEVATED DIG LEVEL [id number] 11/03/2012 09:52:00 12/21/2012 00:01:00 DIS Outpatient CARLITO KWONG, ANGELA Chavarria [facility] ONC [id number] 06/20/2012 09:43:00 09/12/2012 00:01:00 DIS Outpatient CRISTINA MEADOWS MD [facility] LAB COUMEDIN THERAPY,COPD,A FIB, ELEVATED DIG LEVEL [id number] 07/12/2012 09:06:00 07/12/2012 23:59:59 CLS Outpatient KRISTIN FISH [facility] LAB CAD, HYPERLIPIDEMIA [id number] 11/22/2014 08:17:00 Document Registration [id number] 11/22/2014 08:17:00 Document Registration [id number] 11/22/2014 08:17:00 Document Registration [id number] 11/22/2014 08:17:00 Document Registration [id number] 11/22/2014 08:17:00 Document Registration [id number] 11/22/2014 08:17:00 Document Registration [id number] 11/22/2014 08:17:00 Document Registration [id number] 11/22/2014 08:17:00 Document Registration [id number] 11/22/2014 08:17:00 Document Registration [id number] 11/22/2014 08:17:00 Document Registration [id number] 11/22/2014 08:17:00 Document Registration [id number] 11/22/2014 08:17:00 Document Registration [id number] 01/09/2014 12:29:00 Document Registration [id number] 02/16/2013 00:00:00 Document Registration [id number] 12/22/2012 00:00:00 Document Registration [id number] 05/31/2012 13:47:00 Document Registration [id number] 01/12/2012 08:34:00 Document Registration [id number] 10/29/2011 08:40:00 Document Registration [id number] 09/21/2011 10:26:00 Document Registration [id number] 07/06/2011 09:33:00 Document Registration [id number] 06/22/2011 12:44:00 Document Registration [id number] 06/10/2011 10:00:00 Document Registration [id number] 05/11/2011 11:13:00 Document Registration [id number] 05/01/2011 07:53:00 Document Registration [id number] 04/27/2011 07:47:00 Document Registration [id number] 04/19/2011 13:10:00 Document Registration [id number] 03/18/2011 16:06:00 Document Registration [id number] 03/08/2011 14:18:00 Document Registration [id number] 03/08/2011 12:38:00 Document Registration [id number] 02/23/2011 10:10:00 Document Registration [id number] 02/23/2011 10:04:00 Document Registration [id number] 02/11/2011 11:53:00 Document Registration [id number] 01/04/2011 08:53:00 Document Registration [id number] 01/04/2011 08:46:00 Document Registration [id number] 10/05/2010 07:55:00 Document Registration [id number] 08/19/2010 09:05:00 Document Registration [id number] 03/20/2010 10:49:00 Document Registration [id number] 01/28/2010 10:30:00 Document Registration [id number] 10/20/2009 09:24:00 Document Registration [id number] 09/09/2009 21:36:00 Document Registration [id number] 09/06/2009 16:00:00 Document Registration [id number] 07/11/2009 13:20:00 Document Registration [id number] 06/21/2009 10:41:00 Document Registration [id number] 01/09/2014 10:03:43 ACT Document Registration
[2017-11-23] MEDS ORDERED: FLUORESCEIN (FLUOR-I-STRIPS) 1 MG STRP ONE (18:49)
[2017-11-23] MEDS ORDERED: TETRACAINE 0.5% OPHTH SOLN 4 ML BTL (SINGLE DOSE ONLY) ONE (18:50)
[2017-11-23] MEDS ORDERED: RX-TOBRA/DEXAMETH (TOBRADEX) OP. SUSP 2.5 ML BTL OU STA (19:19)
--- NOTE | 2017-11-23 19:23 | ED EENT ---
History of Present Illness General Chief Complaint: Eye Problems Stated Complaint: SOMETHING IN R EYE Nursing Triage Note: pt states he felt like something got in his right eye yesterday, irrigated the eye at home. today presents to the ed with increased irritation to the eye and states that it feels like there is something very large still in his eye. Source: patient Exam Limitations: no limitations History of Present Illness Date Seen by Provider: Nov 23, 2017 Time Seen by Provider: 19:00 Initial Comments here with report of right eye pain. onset yesterday. Denies discharge. Jal like there was foreign body on the eye. He did flush his eyes did not seem to help. States that He feels like there is something In the medial aspect of the eye. Timing/Duration: abrupt, yesterday Severity: moderate Location: eye (R) Prearrival Treatment: flushing eyes Associated Symptoms: No facial pain/swelling, No fever, No nasal congestion/ drainage Allergies and Home Medications Allergies Coded Allergies: No Known Drug Allergies (Unverified , 10/20/16) Home Medications Ascorbate Calcium 500 Mg Tablet, 500 MG PO DAILY, (Reported) Digoxin 125 Mcg Tablet, 125 MCG PO DAILY, (Reported) Diltiazem HCl 120 Mg Cap.er.24h, 120 MG PO DAILY, (Reported) Fluticasone Propionate 16 Gm [place].susp, 1-2 SPRAYS NSEACH BID PRN for ALLERGIES , (Reported) Furosemide 40 Mg Tablet, 40 MG PO DAILY, (Reported) Metoprolol Succinate 100 Mg Tab.er.24h, 100 MG PO DAILY, (Reported) Multivitamin/Iron/Folic Acid 1 Each Tablet, 1 TAB PO DAILY, (Reported) Omalizumab 150 Mg Gaby, 150 MG SQ EVERY 2 WEEKS, (Reported) [place]-3 Fatty Acids/Fish Oil 1 Each Capsule, 2,400 MG PO DAILY, (Reported) TAKES 2 (1,200 MG) CAPSULES Oxymetazoline HCl 30 Ml [place], 1-2 SPRAYS NSEACH DAILY PRN for CONGESTION, ( Reported) Roflumilast 500 Mcg Tablet, 500 MCG PO DAILY, (Reported) Rosuvastatin Calcium 20 Mg Tablet, 20 MG PO DAILY, (Reported) Testosterone Cypionate 100 Mg/1 Ml Vial, 100 MG IM EVERY 2 WEEKS, (Reported) Umeclidinium Brm/Vilanterol Tr 1 Each Blst.w.dev, 1 PUFF IH DAILY, (Reported) Patient Home Medication List Home Medication List Reviewed: Yes Review of Systems Review of Systems Constitutional: see HPI; No chills, No fever Eyes: See HPI, Foreign Body Sensation, Inflammation, Pain, Photophobia Respiratory: no symptoms reported Cardiovascular: no symptoms reported All Other Systems Reviewed Negative Unless Noted: Yes Past Mkphupd-Bsygra-Wgimoy Hx Past Med/Social Hx: Reviewed Nursing Past Med/Soc Hx Patient Social History Alcohol Use: Denies Use Recreational Drug Use: No Smoking Status: Former Smoker Type Used: Cigarettes Former Smoker, Quit: Jun 10, 2007 2nd Hand Smoke Exposure: No Recent Foreign Travel: No Contact w/Someone Who Travel: No Recent Infectious Disease Expo: No Recent Hopitalizations: No Immunizations Up To Date Tetanus Booster (TDap): Unknown Date of Pneumonia Vaccine: Dec 08, 2015 Date of Influenza Vaccine: Dec 08, 2015 Seasonal Allergies Seasonal Allergies: Yes Past Medical History Surgeries: Yes (I&D, [employer] [facility]) Respiratory: Yes (2L O2 [place]) COPD Currently Using CPAP: Yes Cardiac: Yes (CARDIOMYOPATHY WAS IN A-FIB JUNE 2009) Atrial Fibrillation, High Cholesterol, Hypertension, Irregular Heartbeat Neurological: No Reproductive Disorders: No Sexually Transmitted Disease: No HIV/AIDS: No Genitourinary: No Gastrointestinal: No Musculoskeletal: No Endocrine: No Loss of Vision: Bilateral Hearing Impairment: Denies Cancer: No Psychosocial: No Integumentary: No Blood Disorders: Yes (POLYCYTHEMIA) Adverse Reaction/Blood Tranf: No Family Medical History Reviewed Nursing Family Hx Physical Exam Vital Signs Vital Signs - First Documented 11/23/17 18:48 Temp 97.9 Pulse 76 Resp 18 B/P (MAP) 130/78 (95) Pulse Ox 94 O2 Delivery Nasal Cannula Height, Weight, BMI Height: 5'9.00" Weight: 171lbs. 4.0oz. 77.377472ng; 26.5 BMI Method:Stated General Appearance: WD/WN, no apparent distress Eyes: right eye conjunctival inflammation, right eye corneal abrasion (Medial aspect, 2 mm); left eye normal inspection; bilateral eye PERRL, bilateral eye EOMI Neck: non-tender, full range of motion, supple Cardiovascular: regular rate, rhythm, no murmur Respiratory: lungs clear, normal breath sounds Neurologic/Psychiatric: alert, oriented x 3 Skin: normal color, warm/dry Progress/Results/Core Measures Results/Orders My Orders Orders - AMRIELA TERRY MD Rx-Tobramycin/Dexam. (Rx-Tobradex Op Gabriela (11/23/17 19:19) Vital Signs/I&O 11/23/17 18:48 Temp 97.9 Pulse 76 Resp 18 B/P (MAP) 130/78 (95) Pulse Ox 94 O2 Delivery Nasal Cannula Blood Pressure Mean: 95 Progress Progress Note : Progress Note Seen and evaluated. fluorescein stain after tetracaine drops. Abrasion noted. TobraDex initiated 2 drops to the right eye. Discharged home with return precautions. Patient verbalized understanding of instructions and a agreement with plan. Departure Impression Primary Impression: Corneal abrasion Qualified Codes: S05.01XA - Injury of conjunctiva and corneal abrasion without foreign body, right eye, initial encounter Disposition: HOME, SELF-CARE Condition: Improved Departure-Patient Inst. Decision time for Depature: 19:30 Referrals: CRISTINA MEADOWS MD (PCP/Family) Primary Care Physician WILMER OLSON OD Patient Instructions: Corneal Abrasion (DC) Add. Discharge Instructions: All discharge instructions reviewed with patient and/or family. Voiced understanding. use eyedrops 2 drops to the right eye every 4 hours while awake. follow-up with Dr Olson clinic tomorrow. Call his office for appointment. Let them know you were seen in the ED and need follow up. Return for worse pain, swelling , vision problems or other concerns as needed. You may take tylenol/ acetaminophen and/or ibuprofen per package directions for pain. Images Eye 1 - Abrasion, Dye uptake (fluorescein) Copy Copies To 1: WILMER OLSON OD, TIMOTHY D MD Nov 23, 2017 19:23
[2017-11-23 19:40] VITALS: BP 130/78
== END 2017-11-23 19:44 | disposition home or self-care (01) ==
LOC: EDUNIT# 18:28 → ER 18:29
DX: S05.01XA Injury of conjunctiva and corneal abrasion without foreign body, right eye, initial encounter (principal); J44.9 Chronic obstructive pulmonary disease, unspecified; I48.91 Unspecified atrial fibrillation; I42.9 Cardiomyopathy, unspecified; I10 Essential (primary) hypertension; E78.00 Pure hypercholesterolemia, unspecified; Z79.51 Long term (current) use of inhaled steroids; Z87.891 Personal history of nicotine dependence; X58.XXXA Exposure to other specified factors, initial encounter
CPT/HCPCS: 99283

== ENCOUNTER 2017-12-07 13:23 | Outpatient (RCR) | payer MEDICARE, MEDICAID ==
[~2017-12-07] VITALS: Ht 175.3 cm; Wt 77.7 kg
[2017-12-07 13:36] VITALS: BP 118/81
== END 2018-03-07 | disposition home or self-care (01) ==
LOC: SDC 13:23
PROVIDERS: ATTEND Internal Medicine
DX: D75.1 Secondary polycythemia (principal)

== ENCOUNTER → 2018-05-10 | Outpatient (CLI) | payer MEDICARE, MEDICAID ==
[~2018-05-10] MED LIST changes: +ROFL500T PO; -ROFL500T4 PO
== END ==
LOC: CARD 10:33
PROVIDERS: ATTEND Internal Medicine Cardiovascular Disease
DX: I48.91 Unspecified atrial fibrillation (principal); I11.0 Hypertensive heart disease with heart failure; I50.9 Heart failure, unspecified; I25.10 Atherosclerotic heart disease of native coronary artery without angina pectoris; J44.9 Chronic obstructive pulmonary disease, unspecified; R06.09 Other forms of dyspnea
CPT/HCPCS: 93306

== ENCOUNTER 2018-08-19 14:33 | Emergency (ER) | payer MEDICARE, MEDICAID ==
[~2018-08-19] VITALS: Ht 175.3 cm; Wt 77.1 kg
[2018-08-19 15:00] LABS: BASOPHILS % (AUTO) 0 % (0-10); EOSINOPHILS # (AUTO) 0.2 10^3/uL (0.0-0.3); EOSINOPHILS % (AUTO) 3 % (0-10); HEMATOCRIT 55 % (40-54); HEMOGLOBIN 17.3 G/DL (13.3-17.7); LYMPHOCYTES # (AUTO) 1.7 X 10^3 (1.0-4.0); LYMPHOCYTES % (AUTO) 21 % (12-44); MEAN CORPUSCULAR HEMOGLOBIN 31 PG (25-34); MEAN CORPUSCULAR HGB CONC 31 G/DL (32-36); MEAN CORPUSCULAR VOLUME 99 FL (80-99); MEAN PLATELET VOLUME 10.6 FL (7.4-10.4); MONOCYTES # (AUTO) 0.7 X 10^3 (0.0-1.0); MONOCYTES % (AUTO) 8 % (0-12); NEUTROPHILS # (AUTO) 5.6 X 10^3 (1.8-7.8); NEUTROPHILS % (AUTO) 68 % (42-75); PLATELET COUNT 115 10^3/uL (130-400); RED CELL DISTRIBUTION WIDTH 14.5 % (10.0-14.5); WHITE BLOOD COUNT 8.3 10^3/uL (4.3-11.0)
[2018-08-19] MEDS ORDERED: RT-ALBUTEROL/IPRATROPIUM 3 ML (DUONEB) VIAL INH ONE ×2 (15:00→16:15)
[2018-08-19 15:13] LABS: INR 1.2 (0.8-1.4); PROTHROMBIN TIME PATIENT 16.1 SEC (12.2-14.7)
--- NOTE | 2018-08-19 15:19 | Diagnostic Imaging Report ---
Erect AP chest at 2:57 p.m. INDICATION: Weakness, fatigue. This exam is less than optimal as the patient is rotated. Allowing for this technical factor, the heart is enlarged but stable when compared to 01/17/2017. The chronic pulmonary changes involving the lung seen on the prior study are again evident and no different. There is no sign of failure, pneumonia or pleural effusion to indicate an acute abnormality. The mediastinum is not widened. The osseous structures are intact. IMPRESSION: There is cardiomegaly and chronic pulmonary disease but there is no evidence for acute cardiopulmonary abnormality. Dictated by: Dictated on workstation # [id number]
[2018-08-19 15:20] LABS: BILIRUBIN,TOTAL 1.2 MG/DL (0.1-1.0); CREATININE SERUM 1.22 MG/DL (0.60-1.30); TOTAL PROTEIN 7.6 GM/DL (6.4-8.2)
--- NOTE | 2018-08-19 15:26 | ED General ---
General Chief Complaint: Respiratory Problems Stated Complaint: SOA Nursing Triage Note: WENT TO URGENT CARE YESTERDAY AND DX WITH A SINUS INFECTION AND GIVEN AN ANTIBIOTIC. STATES TODAY HE IS HAVING MORE INCREASED SOA AND NOT FEELING WELL AT ALL. Nursing Sepsis Screen: No Definite Risk Source of Information: Patient Exam Limitations: No Limitations History of Present Illness Date Seen by Provider: Aug 19, 2018 Time Seen by Provider: 14:46 Initial Comments This 78-year-old gentleman presents to the emergency room with complaints of a general ill feeling and shortness of breath. He was seen at an urgent care facility yesterday and started on Augmentin for suspected sinusitis. He is no better today. He feels lightheaded, weak, shaky, and short of breath. He has history of COPD, CHF, CAD, polycythemia, and atrial fibrillation. Despite his difficulty breathing he has not been taking any breathing treatments at home. He does have BiPAP that he uses every night. He is anticoagulated on Eliquis. He normally uses 2 L by nasal cannula. He was found to be saturating 88 percent on his usual 2 L. He denies any chest pain or discomfort of any kind. Allergies and Home Medications Allergies Coded Allergies: No Known Drug Allergies (Unverified , 10/20/16) Home Medications Albuterol Sulfate 2.5 Mg/3 Ml Vial.neb, 2.5 MG INH Q4H PRN for WHEEZING Use on a scheduled basis for the next 2 or 3 days, then as needed Prescribed by: KATHIE MCBRIDE on 08/19/18 1756 Ascorbate Calcium 500 Mg Tablet, 500 MG PO DAILY, (Reported) Digoxin 125 Mcg Tablet, 125 MCG PO DAILY, (Reported) Diltiazem HCl 120 Mg Cap.er.24h, 120 MG PO DAILY, (Reported) Fluticasone Propionate 16 Gm Troy.susp, 1-2 SPRAYS NSEACH BID PRN for ALLERGIES, (Reported) Furosemide 40 Mg Tablet, 40 MG PO DAILY, (Reported) Metoprolol Succinate 100 Mg Tab.er.24h, 100 MG PO DAILY, (Reported) Multivitamin/Iron/Folic Acid 1 Each Tablet, 1 TAB PO DAILY, (Reported) Omalizumab 150 Mg Gaby, 150 MG SQ EVERY 2 WEEKS, (Reported) [place]-3 Fatty Acids/Fish Oil 1 Each Capsule, 2,400 MG PO DAILY, (Reported) TAKES 2 (1,200 MG) CAPSULES Oxymetazoline HCl 30 Ml Troy, 1-2 SPRAYS NSEACH DAILY PRN for CONGESTION, (Reported) Prednisone 20 Mg Tab, 20 MG PO DAILY Take 3 tabs(60mg)daily,decrease by 1/2 tab(10mg)every other day. Prescribed by: KATHIE MCBRIDE on 08/19/18 525 Roflumilast 500 Mcg Tablet, 500 MCG PO DAILY, (Reported) Rosuvastatin Calcium 20 Mg Tablet, 20 MG PO DAILY, (Reported) Testosterone Cypionate 100 Mg/1 Ml Vial, 100 MG IM EVERY 2 WEEKS, (Reported) Umeclidinium Brm/Vilanterol Tr 1 Each Blst.w.dev, 1 PUFF IH DAILY, (Reported) Patient Home Medication List Home Medication List Reviewed: Yes Review of Systems Review of Systems Constitutional: weakness EENTM: see HPI Respiratory: see HPI Cardiovascular: no symptoms reported Gastrointestinal: no symptoms reported Genitourinary: no symptoms reported Musculoskeletal: no symptoms reported Skin: no symptoms reported Psychiatric/Neurological: No Symptoms Reported Hematologic/Lymphatic: No Symptoms Reported Immunological/Allergic: no symptoms reported Past Vraqpxa-Xyfhty-Vhynqj Hx Past Med/Social Hx: Reviewed and Corrections made Patient Social History Alcohol Use: Rarely Uses Recreational Drug Use: No Smoking Status: Former Smoker Type Used: Cigarettes Former Smoker, Quit: Jun 10, 2007 2nd Hand Smoke Exposure: No Recent Foreign Travel: No Contact w/Someone Who Travel: No Recent Infectious Disease Expo: No Recent Hopitalizations: No Physical Abuse: No Sexual Abuse: No Mistreated: No Fear: No Immunizations Up To Date Tetanus Booster (TDap): Unknown Date of Pneumonia Vaccine: Dec 08, 2015 Date of Influenza Vaccine: Dec 08, 2015 Seasonal Allergies Seasonal Allergies: Yes Past Medical History Surgeries: Yes (I&D, [facility] GANGRENE) Respiratory: Yes (2L O2 NC) COPD Currently Using CPAP: Yes Cardiac: Yes (CARDIOMYOPATHY WAS IN A-FIB JUNE 2009, pulmonary hypertension) Atrial Fibrillation, Cardiomyopathy, Coronary Artery Disease, High Cholesterol, Hypertension, Irregular Heartbeat, Valvular Heart Disease Neurological: No Reproductive Disorders: No Sexually Transmitted Disease: No HIV/AIDS: No Genitourinary: No Gastrointestinal: No Musculoskeletal: No Endocrine: No Loss of Vision: Bilateral Hearing Impairment: Denies Cancer: No Psychosocial: No Integumentary: No Blood Disorders: Yes (POLYCYTHEMIA) Adverse Reaction/Blood Tranf: No Physical Exam Vital Signs Vital Signs - First Documented 08/19/18 08/19/18 14:38 14:52 Temp 98.0 Pulse 91 Resp 18 B/P (MAP) 124/111 (115) Pulse Ox 89 O2 Delivery Nasal Cannula O2 Flow Rate 2.00 FiO2 93 Capillary Refill : Less Than 3 Seconds Height, Weight, BMI Height: 5'9.00" Weight: 170lbs. 4.0oz. 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 Norm as Tested Skin: Normal Color, Warm/Dry Progress/Results/Core Measures Suspected Sepsis Recent Fever Within 48 Hours: No Infection Criteria Present: Documented Infection New/Unexplained Altered Menta: No Sepsis Screen: No Definite Risk SIRS Temperature:98.0 Pulse: 91 Respiratory Rate: 18 Laboratory Tests 08/19/18 14:54: White Blood Count 8.3 Blood Pressure 124 /111 Mean: 115 Laboratory Tests 08/19/18 14:54: Creatinine 1.22, INR Comment 1.2, Platelet Count 115L, Total Bilirubin 1.2H Results/Orders Lab Results Laboratory Tests Test 08/19/18 14:52 08/19/18 14:54 08/19/18 16:27 Range/Units Digoxin Level 0.72 L 0.80-2.00 NG/ML White Blood Count 8.3 4.3-11.0 10^3/uL Red Blood Count 5.59 4.35-5.85 10^6/uL Hemoglobin 17.3 13.3-17.7 G/DL Hematocrit 55 H 40-54 % Mean Corpuscular Volume 99 80-99 FL Mean Corpuscular Hemoglobin 31 25-34 PG Mean Corpuscular Hemoglobin Concent 31 L 32-36 G/DL Red Cell Distribution Width 14.5 10.0-14.5 % Platelet Count 115 L 130-400 10^3/uL Mean Platelet Volume 10.6 H 7.4-10.4 FL Neutrophils (%) (Auto) 68 42-75 % Lymphocytes (%) (Auto) 21 12-44 % Monocytes (%) (Auto) 8 0-12 % Eosinophils (%) (Auto) 3 0-10 % Basophils (%) (Auto) 0 0-10 % Neutrophils # (Auto) 5.6 1.8-7.8 X 10^3 Lymphocytes # (Auto) 1.7 1.0-4.0 X 10^3 Monocytes # (Auto) 0.7 0.0-1.0 X 10^3 Eosinophils # (Auto) 0.2 0.0-0.3 10^3/uL Basophils # (Auto) 0.0 0.0-0.1 10^3/uL Prothrombin Time 16.1 H 12.2-14.7 SEC INR Comment 1.2 0.8-1.4 Activated Partial Thromboplast Time 43 H 24-35 SEC Sodium Level 145 135-145 MMOL/L Potassium Level 4.0 3.6-5.0 MMOL/L Chloride Level 94 L 98-107 MMOL/L Carbon Dioxide Level 40 H 21-32 MMOL/L Anion Gap 11 5-14 MMOL/L Blood Urea Nitrogen 22 H 7-18 MG/DL Creatinine 1.22 0.60-1.30 MG/DL Estimat Glomerular Filtration Rate 57 BUN/Creatinine Ratio 18 Glucose Level 143 H 70-105 MG/DL Calcium Level 10.0 8.5-10.1 MG/DL Corrected Calcium 10.0 8.5-10.1 MG/DL Magnesium Level 2.0 1.8-2.4 MG/DL Total Bilirubin 1.2 H 0.1-1.0 MG/DL Aspartate Amino Transf (AST/SGOT) 26 5-34 U/L Alanine Aminotransferase (ALT/SGPT) 21 0-55 U/L Alkaline Phosphatase 75 40-136 U/L Myoglobin 153.3 H 10.0-92.0 NG/ML Troponin I 0.028 <0.028 NG/ML C-Reactive Protein High Sensitivity 0.22 0.00-0.50 MG/DL B-Type Natriuretic Peptide 467.1 H <100.0 PG/ML Total Protein 7.6 6.4-8.2 GM/DL Albumin 4.0 3.2-4.5 GM/DL Blood Gas Puncture Site RT RAD Blood Gas Patient Temperature 99.1 Arterial Blood pH 7.36 L 7.37-7.43 Arterial Blood Partial Pressure CO2 78 *H 35-45 MMHG Arterial Blood Partial Pressure O2 65 L 79-93 MMHG Arterial Blood HCO3 42 *H 23-27 MMOL/L Arterial Blood Total CO2 44.7 H 21.0-31.0 MMOL/L Arterial Blood Oxygen Saturation 92 L 94-100 % Arterial Blood Base Excess 16.1 H -2.5-2.5 MMOL/L Kwesi Test YES-POS Blood Gas Ventilator Setting NO Blood Gas Inspired Oxygen 3.5 L My Orders Orders - KATHIE WRAY MD Cbc With Automated Diff (08/19/18 14:37) Magnesium (08/19/18 14:37) Ekg Tracing (08/19/18 14:37) Cardiac Profile 1 (08/19/18 14:37) Comprehensive Metabolic Panel (08/19/18 14:37) Myoglobin Serum (08/19/18 14:37) Protime With Inr (08/19/18 14:37) Partial Thromboplastin Time (08/19/18 14:37) O2 (08/19/18 14:37) Monitor-Rhythm Ecg Trace Only (08/19/18 14:37) Ed Iv/Invasive Line Start (08/19/18 14:37) BNP (08/19/18 14:37) Hs C Reactive Protein (08/19/18 14:37) Chest Pa/Lat (2 View) (08/19/18 14:53) Albuterol/Ipra Inhalation Soln (Duoneb I (08/19/18 15:00) Svn Small Volume Nebulizer (08/19/18 14:53) Digoxin (08/19/18 15:29) Arterial Blood Gas (08/19/18 16:12) Methylprednisolone Sod Succ (Solu-Medrol (08/19/18 16:15) Albuterol Pre-Mix Nebs (Rt) (Proventil (08/19/18 16:12) Albuterol/Ipra Inhalation Soln (Duoneb I (08/19/18 16:15) Svn Small Volume Nebulizer (08/19/18 16:12) Svn Small Volume Nebulizer (08/19/18 16:12) Arterial Blood Draw (08/19/18 16:27) Rx-Albuterol Nebs (Rx-Proventil Nebs) (08/19/18 17:50) Medications Given in ED Current Medications Medications Dose Ordered Sig/Mayito Route Start Time Stop Time Status Last Admin Dose Admin Albuterol/ Ipratropium 3 ml ONCE ONCE INH 08/19/18 15:00 08/19/18 15:01 DC 08/19/18 15:07 3 ML Albuterol/ Ipratropium 3 ml ONCE ONCE INH 08/19/18 16:15 08/19/18 16:16 DC 08/19/18 16:29 3 ML Methylprednisolone Sodium Succinate 125 mg ONCE ONCE IVP 08/19/18 16:15 08/19/18 16:16 DC 08/19/18 16:31 125 MG Vital Signs/I&O 08/19/18 08/19/18 08/19/18 08/19/18 14:38 14:52 15:08 16:29 Temp 98.0 Pulse 91 Resp 18 B/P (MAP) 124/111 (115) Pulse Ox 89 93 92 93 O2 Delivery Nasal Cannula Nasal Cannula Nasal Cannula Nasal Cannula O2 Flow Rate 2.00 3.00 3.50 3.50 FiO2 93 08/19/18 18:18 Pulse 79 Resp 18 B/P (MAP) 117/97 (104) Pulse Ox 96 O2 Delivery Nasal Cannula O2 Flow Rate 2.00 Capillary Refill : Less Than 3 Seconds Blood Pressure Mean: 115 Progress Note #1: Time: 16:15 Progress Note Patient's workup revealed no pneumonia. BNP was mildly elevated but there were no signs of pulmonary congestion on the x-ray. Patient still has wheezing and extremely prolonged expiratory phase after DuoNeb treatment. I have ordered an hour-long nebulizer treatment and Solu-Medrol. We will reassess him after that. Progress Note #2: Time: 17:49 Progress Note Patient felt significant improvement after the hour long neb. His was no longer lightheaded with standing. Air movement was moderately improved. Albuterol neb solution was dispensed for use at home. Patient was encourage to use his BiPAP as needed and encouraged to return to the ER if symptoms worsen again. I explained to him that he had a significantly elevated pCO2 on his ABG and BiPAP will help him clear it. ECG Initial ECG Impression Date: Aug 19, 2018 Initial ECG Impression Time: 15:06 Initial ECG Rate: 93 Initial ECG Rhythm: A Fib/Flutter Initial ECG Impression: Atrial Fibrillation Comment Atrial fibrillation with no ST elevation or depression. Rate controlled. RVH by automated read. Diagnostic Imaging Diagonstic Imaging: Xray Plain Films/CT/US/NM/MRI: chest Comments Chest x-ray viewed by me and report reviewed. See report below: NAME: COOPER MARTINEZ REC#: [id number] PT STATUS: REG ER : 1940 PHYSICIAN: KATHIE WRAY MD ADMIT DATE: 08/19/18/ER Draft Date of Exam:08/19/18 CHEST PA/LAT (2 VIEW) Erect AP chest at 2:57 p.m. INDICATION: Weakness, fatigue. This exam is less than optimal as the patient is rotated. Allowing for this technical factor, the heart is enlarged but stable when compared to 01/17/2017. The chronic pulmonary changes involving the lung seen on the prior study are again evident and no different. There is no sign of failure, pneumonia or pleural effusion to indicate an acute abnormality. The mediastinum is not widened. The osseous structures are intact. IMPRESSION: There is cardiomegaly and chronic pulmonary disease but there is no evidence for acute cardiopulmonary abnormality. Dictated on workstation # [id number] Dict: 08/19/18 1511 Trans: 08/19/18 1518 KB [id number] Interpreted by: LUCIA QUARLES MD Departure Impression Primary Impression: COPD with exacerbation Additional Impressions: Hypercapnia Lightheadedness Disposition: 01 HOME, SELF-CARE Condition: Improved Departure-Patient Inst. Referrals: CRISTINA MEADOWS MD (PCP/Family) Primary Care Physician Patient Instructions: COPD Including Emphysema (DC), Medicines for Chronic Obstructive Pulmonary Disease (COPD) Add. Discharge Instructions: Continue your previous medications as previously prescribed. You may complete the antibiotic prescribed yesterday. Use albuterol nebulizer treatments every 4 hours on a scheduled basis over the next 2 or 3 days. Then use them as needed for shortness of breath. Continue to use your BiPAP machine at night when you sleep. You may also use it during the day if you're feeling short of breath, lightheaded, or weak. Follow-up with your primary care provider as soon as possible. Call Tuesday for an appointment. In the meantime, return to the emergency room if your symptoms are worsening. All discharge instructions reviewed with patient and/or family. Voiced understanding. Scripts Prednisone (Prednisone) 20 Mg Tab 20 MG PO DAILY, #22 TAB Take 3 tabs(60mg)daily,decrease by 1/2 tab(10mg)every other day. Prov: KATHIE WRAY MD 08/19/18 Albuterol Sulfate (Albuterol Sulfate) 2.5 Mg/3 Ml Vial.neb 2.5 MG INH Q4H PRN for WHEEZING, #50 EA 1 Refill Use on a scheduled basis for the next 2 or 3 days, then as needed Prov: KATHIE WRAY MD 08/19/18 Copy Copies To 1: ANTOLIN PEARL MD Copies To 2: CRISTINA MEADOWS MD, JOSHUA T MD Aug 19, 2018 15:26
[2018-08-19] MEDS ORDERED: RT-ALBUTEROL SULF 2.5 MG/3 ML PRE-MIX VIAL INH STA (16:12)
[2018-08-19] MEDS ORDERED: methylPREDNISolone 125 MG (Solu-MEDROL) VIAL IVP ONE (16:15)
[2018-08-19 16:32] LABS: ABG BASE EXCESS 16.1 MMOL/L (-2.5-2.5); ABG OXYGEN SATURATION 92 % (94-100); ABG PH 7.36 (7.37-7.43); ABG PO2 65 MMHG (79-93); ABG TCO2 44.7 MMOL/L (21.0-31.0)
[2018-08-19 16:33] LABS: ABG PCO2 78 MMHG (35-45); ALLENS TEST YES-POS; INSPIRED O2 3.5 L; PATIENT TEMP 99.1; VENTILATOR NO
[2018-08-19] MEDS ORDERED: RX-ALBUTEROL NEB 2.5 MG/3 ML PACK #5 IH STA (17:50)
[2018-08-19] MEDS ORDERED: ALBU2.5V4 INH (17:56)
[2018-08-19] MEDS ORDERED: PRD20T PO (17:56)
[2018-08-19 18:18] VITALS: BP 117/97
--- OUTSIDE RECORDS SUMMARY | 2018-08-19 19:34 | XMS REPORT | Continuity of Care Document ---
Author Organization Unknown Address Unknown Allergies Active Description Code Type Severity Reaction Onset Reported/Identified Relationship to Patient Clinical Status Yes NKANo Known Allergies NKA Miscellaneous Allergy Unknown N/A 04/03/2005 Yes No Known Drug Allergies [id number] Drug Allergy Mild N/A 07/29/2008 Yes No Known Drug Allergies [id number] Drug Allergy Unknown N/A 10/20/2016 Medications There [...] USE 02/13/2011 Ot 414.01 CORONARY ATHEROSCLEROSIS OF [place] CORON 02/13/2011 Ot 414.8 CHR ISCHEMIC HRT [...] NEC/NOS 03/09/2011 Ot 414.01 CORONARY ATHEROSCLEROSIS OF [place] CORON 03/09/2011 Ot 416.9 CHR PULMON HEART [...] INFARCT,IN 04/01/2011 Ot 414.01 CORONARY ATHEROSCLEROSIS OF [place] CORON 04/01/2011 Ot 414.8 CHR ISCHEMIC HRT [...] V58.61 ANTICOAGULANTS,LT,CURRENT USE 06/06/2012 Ot V58.69 OTH MED,LT,CURRENT USE 09/12/2012 CRISTINA MEADOWS MD Ot 401.9 [...] Ot 272.4 11/22/2014 Ot 414.00 11/22/2014 KRISTIN FISHP Ot 272.4 11/22/2014 KRISTIN FISH Ot 414.00 11/22/2014 Ot 493.00 11/22/2014 RYANNE KWONG, ANTOLIN Etienne Ot 272.4 11/22/2014 ANTOLIN PEARL MD Ot 414.00 11/22/2014 Ot 493.00 11/22/2014 RYANNE KWONG, ANTOLIN Etienne Ot 272.4 11/22/2014 ANTOLIN PEARL MD Ot 397.0 11/22/2014 RYANNE KWONG, ANTOLIN J Ot 401.9 11/22/2014 RYANNE KWONG, YOSSIHAR J Ot 414.00 11/22/2014 RYANNE KWONG, YOSSIHAR J Ot 424.0 11/22/2014 RYANNE KWONG, ANTOLIN J Ot 427.31 11/22/2014 RYANNE KWONG, ANTOLIN J Ot 428.0 11/22/2014 RYANNE KWONG, YOSSIHAR J Ot 272.4 11/22/2014 RYANNE KWONG, YOSSIHAR J Ot 401.9 11/22/2014 RYANNE KWONG, YOSSIHAR J Ot 414.00 11/22/2014 RYANNE KWONG, ANTOLIN J Ot 427.31 11/22/2014 RYANNE KWONG, YOSSIHAR J Ot 428.0 11/22/2014 RYANNE KWONG, YOSSIHAR J Ot 496 11/22/2014 RYANNE KWONG, ANTOLIN J Ot 760.9 11/22/2014 RYANNE KWONG, ANTOLIN J Ot 272.4 11/22/2014 RYANNE KWONG, ANTOLIN J Ot 401.9 11/22/2014 RYANNE KWONG, ANTOLIN J Ot 414.00 11/22/2014 RYANNE KWONG, ANTOLIN J Ot 427.31 11/22/2014 RYANNE KWONG, ANTOLIN J Ot 428.0 11/22/2014 RYANNE KWONG, ANTOLIN J Ot 496 11/22/2014 RYANNE KWONG, ANTOLIN J Ot 786.09 11/22/2014 ABDIEL KWONG, CRISTINA Drake Ot 242.90 11/22/2014 ABDIEL KWONG, CRISTINA Drake Ot 427.31 11/22/2014 CRISTINA MEADOWS MD Ot V58.61 11/22/2014 Ot 401.9 11/22/2014 Ot 427.31 11/22/2014 Ot 496 11/22/2014 Ot V58.61 11/22/2014 Ot 272.4 11/22/2014 KRISTIN FISH BOOTMAKER HAND Ot 272.4 11/22/2014 KRISTIN FISH BOOTMAKER HAND Ot 414.00 11/22/2014 KRISTIN FISH BOOTMAKER HAND Ot 272.4 11/22/2014 KRISTIN FISH BOOTMAKER HAND Ot 414.00 11/22/2014 KRISTIN FISH BOOTMAKER HAND Ot 272.4 11/22/2014 FISHKRISTIN WILSON BOOTMAKER HAND Ot 414.00 08/18/2015 Ot 496 CHR AIRWAY OBSTRUCT NEC 08/18/2015 Ot 789.59 OTHER ASCITES 08/18/2015 Ot 272.4 HYPERLIPIDEMIA NEC/NOS 08/18/2015 Ot 401.9 HYPERTENSION NOS 08/18/2015 Ot 272.4 HYPERLIPIDEMIA NEC/NOS 08/18/2015 Ot 414.00 CORON ATHEROSCLER NOS TYPE VESSEL, NATIV 08/18/2015 Ot 276.7 HYPERPOTASSEMIA 08/18/2015 Ot 414.00 CORON ATHEROSCLER NOS TYPE VESSEL, NATIV 08/18/2015 Ot V58.69 OTH MED,LT,CURRENT USE 08/18/2015 Ot 414.01 CORONARY ATHEROSCLEROSIS OF [place] CORON 08/18/2015 Ot 786.50 CHEST PAIN NOS 08/18/2015 Ot 786.05 SHORTNESS OF BREATH 08/18/2015 Ot 272.4 HYPERLIPIDEMIA NEC/NOS 08/18/2015 Ot V58.69 OTH MED,LT,CURRENT USE 08/18/2015 Ot V58.83 ENCOUNTER FOR THERAPEUTIC DRUG MONITORIN 08/18/2015 Ot 272.4 HYPERLIPIDEMIA NEC/NOS 08/18/2015 Ot 414.00 CORON ATHEROSCLER NOS TYPE VESSEL, NATIV 08/18/2015 KRISTIN FISH BOOTMAKER HAND Ot 272.4 HYPERLIPIDEMIA NEC/NOS 08/18/2015 FISHKRISTIN WILSON BOOTMAKER HAND Ot 414.00 CORON ATHEROSCLER NOS TYPE VESSEL, NATIV 08/18/2015 KRISTIN FISH BOOTMAKER HAND Ot E78.4 OTHER HYPERLIPIDEMIA 08/18/2015 KRISTIN FISH BOOTMAKER HAND Ot I25.10 ATHSCL HEART DISEASE OF [place] CORONARY 08/18/2015 Ot 493.00 EXTRINSIC ASTHMA, NOS 08/18/2015 RYANNE KWONG, ANTOLIN Etienne Ot 272.4 HYPERLIPIDEMIA NEC/NOS 08/18/2015 RYANNE KWONG, ANTOLIN Etienne Ot 414.00 CORON ATHEROSCLER NOS TYPE VESSEL, NATIV 08/18/2015 Ot 493.00 EXTRINSIC ASTHMA, NOS 08/18/2015 ANTOLIN PEARL MD Ot 272.4 HYPERLIPIDEMIA NEC/NOS 08/18/2015 ANTOLIN PEARL MD Ot 397.0 TRICUSPID VALVE DISEASE 08/18/2015 ANTOLIN PEARL MD Ot 401.9 HYPERTENSION NOS 08/18/2015 RYANNE KWONG, ANTOLIN Etienne Ot 414.00 CORON ATHEROSCLER NOS TYPE VESSEL, [...] PEARL MD Ot 427.31 ATRIAL FIBRILLATION 08/18/2015 ANTOILN PEARL MD Ot 428.0 CONGESTIVE HEART FAILURE [...] 272.4 HYPERLIPIDEMIA NEC/NOS 08/19/2015 CARLITO KWONG, ANGELA A Ot J44.1 CHRONIC OBSTRUCTIVE PULMONARY DISEASE W 09/18/2015 ANGELA ESTEBAN MD A Ot J44.1 CHRONIC OBSTRUCTIVE PULMONARY DISEASE W 09/26/2015 ANGELA ESTEBAN MD A Ot J44.1 CHRONIC OBSTRUCTIVE PULMONARY DISEASE W 09/29/2015 Ot 272.4 HYPERLIPIDEMIA NEC/NOS 09/29/2015 Ot 401.9 HYPERTENSION NOS 11/16/2015 CARLITO KWONG, ANGELA A Ot J44.1 CHRONIC OBSTRUCTIVE PULMONARY DISEASE W 05/24/2016 Ot 272.4 HYPERLIPIDEMIA NEC/NOS 05/24/2016 Ot 414.00 CORON ATHEROSCLER NOS TYPE VESSEL, NATIV 05/24/2016 Ot 276.7 HYPERPOTASSEMIA 05/24/2016 Ot 414.00 CORON ATHEROSCLER NOS TYPE VESSEL, NATIV 05/24/2016 Ot V58.69 OTH MED,LT,CURRENT USE 05/24/2016 Ot 414.01 CORONARY ATHEROSCLEROSIS OF [place] CORON 05/24/2016 Ot 786.50 CHEST PAIN NOS 05/24/2016 Ot 786.05 SHORTNESS OF BREATH 05/24/2016 Ot 272.4 HYPERLIPIDEMIA NEC/NOS 05/24/2016 Ot V58.69 OTH MED,LT,CURRENT USE 05/24/2016 Ot V58.83 ENCOUNTER FOR THERAPEUTIC DRUG MONITORIN 05/24/2016 Ot 272.4 HYPERLIPIDEMIA NEC/NOS 05/24/2016 Ot 414.00 CORON ATHEROSCLER NOS TYPE VESSEL, NATIV 05/24/2016 FISHKRISTIN WILSON BOOTMAKER HAND Ot 272.4 HYPERLIPIDEMIA NEC/NOS 05/24/2016 KRISTIN FISH BOOTMAKER HAND Ot 414.00 CORON ATHEROSCLER NOS TYPE VESSEL, NATIV 05/24/2016 KRISTIN FISH BOOTMAKER HAND Ot E78.4 OTHER HYPERLIPIDEMIA 05/24/2016 FISHKRISTIN WILSON BOOTMAKER HAND Ot I25.10 ATHSCL HEART DISEASE OF [place] CORONARY 05/24/2016 Ot 493.00 EXTRINSIC ASTHMA, NOS [...] MD Ot I25.10 ATHSCL HEART DISEASE OF [place] CORONARY 05/30/2016 ANTOLIN PEARL MD Ot I48.0 PAROXYSMAL ATRIAL FIBRILLATION 05/30/2016 ANTOLIN PEARL MD Ot I50.9 HEART FAILURE, UNSPECIFIED 06/08/2016 ANTOLIN PEARL MD Ot E78.2 MIXED HYPERLIPIDEMIA 06/08/2016 ANTOLIN PEARL MD Ot I11.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 06/08/2016 ANTOLIN PEARL MD Ot I25.10 ATHSCL HEART DISEASE OF [place] CORONARY 06/08/2016 ANTOLIN PEARL MD Ot I48.0 PAROXYSMAL ATRIAL FIBRILLATION 06/08/2016 ANTOLIN PEARL MD Ot I48.91 UNSPECIFIED ATRIAL FIBRILLATION 06/08/2016 ANTOLIN PEARL MD Ot I50.9 HEART FAILURE, UNSPECIFIED 06/09/2016 ANTOLIN PEARL MD Ot E78.5 HYPERLIPIDEMIA, UNSPECIFIED 06/09/2016 ANTOLIN PEARL MD Ot I12.9 HYPERTENSIVE CHRONIC KIDNEY DISEASE W ST 06/09/2016 ANTOLIN PEARL MD Ot I25.10 ATHSCL HEART DISEASE OF [place] CORONARY 06/09/2016 ANTOLIN PEARL MD Ot I27.81 [...] CARDIOVASCULAR 06/09/2016 ANTOLIN PEARL MD Ot Z79.01 FPC (CURRENT) USE OF ANTICOAGULANT 06/09/2016 ANTOLIN PEARL MD Ot Z79.899 OTHER [facility] (CURRENT) DRUG THERAPY 06/09/2016 ANTOLIN PEARL MD Ot Z87.891 PERSONAL HISTORY OF NICOTINE DEPENDENCE 06/09/2016 ANTOLIN PEARL MD Ot Z95.5 PRESENCE OF CORONARY ANGIOPLASTY IMPLANT 06/09/2016 ANTOLIN PEARL MD Ot Z99.81 DEPENDENCE ON SUPPLEMENTAL OXYGEN 06/17/2016 CRISTINA MEADOWS MD Ot D75.1 SECONDARY POLYCYTHEMIA 07/05/2016 ANTOLIN PEARL MD Ot E78.2 MIXED HYPERLIPIDEMIA 07/05/2016 ANTOLIN PEARL MD J Ot I11.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 07/05/2016 ANTOLIN PEARL MD J Ot I25.10 ATHSCL HEART DISEASE OF [place] CORONARY 07/05/2016 ANTOLIN PEARL MD J Ot I48.0 PAROXYSMAL ATRIAL FIBRILLATION 07/05/2016 ANTOLIN PEARL MD Ot I48.91 UNSPECIFIED ATRIAL FIBRILLATION 07/05/2016 ANTOLIN PEARL MD Ot I50.9 HEART FAILURE, UNSPECIFIED 07/09/2016 ANTOLIN PEARL MD Ot E78.2 MIXED HYPERLIPIDEMIA 07/09/2016 ANTOLIN PEARL MD J Ot I11.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 07/09/2016 ANTOLIN PEARL MD Ot I25.10 ATHSCL HEART DISEASE OF [place] CORONARY 07/09/2016 ANTOLIN PEARL MD Ot I48.0 PAROXYSMAL ATRIAL FIBRILLATION 07/09/2016 ANTOLIN PEARL MD Ot I50.9 HEART FAILURE, UNSPECIFIED 07/13/2016 CRISTINA MEADOWS MD Ot D75.1 SECONDARY POLYCYTHEMIA 07/21/2016 CRISTINA MEADOWS MD Ot D75.1 SECONDARY POLYCYTHEMIA 07/28/2016 ANTOLIN PEARL MD Ot E78.2 MIXED HYPERLIPIDEMIA 07/28/2016 ANTOLIN PEARL MD J Ot I11.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 07/28/2016 ANTOLIN PEARL MD Ot I25.10 ATHSCL HEART DISEASE OF [place] CORONARY 07/28/2016 ANTOLIN PEARL MD Ot I48.0 PAROXYSMAL ATRIAL FIBRILLATION 07/28/2016 ANTOLIN PEARL MD J Ot I48.91 UNSPECIFIED ATRIAL FIBRILLATION 07/28/2016 ANTOLIN PEARL MD J Ot I50.9 HEART FAILURE, UNSPECIFIED 07/28/2016 CRISTINA MEADOWS MD Ot D75.1 SECONDARY POLYCYTHEMIA 08/03/2016 ANTOLIN PEARL MD Ot E78.2 MIXED HYPERLIPIDEMIA 08/03/2016 ANTOLIN PEARL MD Ot I11.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 08/03/2016 ANTOLIN PEARL MD Ot I25.10 ATHSCL HEART DISEASE OF [place] CORONARY 08/03/2016 ANTOLIN PEARL MD Ot I48.0 PAROXYSMAL ATRIAL FIBRILLATION 08/03/2016 ANTOLIN PEARL MD Ot I50.9 HEART FAILURE, UNSPECIFIED 08/09/2016 ANTOLIN PEARL MD Ot E78.2 MIXED HYPERLIPIDEMIA 08/09/2016 ANTOLIN PEARL MD Ot I11.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 08/09/2016 ANTOLIN PEARL MD Ot I25.10 ATHSCL HEART DISEASE OF [place] CORONARY 08/09/2016 ANTOLIN PEARL MD Ot I48.0 PAROXYSMAL ATRIAL FIBRILLATION 08/09/2016 ANTOLIN PEARL MD Ot I50.9 HEART FAILURE, UNSPECIFIED 08/25/2016 ABDIEL KWONG, CRISTINA Drake Ot D75.1 SECONDARY POLYCYTHEMIA 08/25/2016 ABDIEL KWONG, CRISTINA Drake Ot D75.1 SECONDARY POLYCYTHEMIA 09/13/2016 ABDIEL KWONG, CRISTINA Drake Ot D75.1 SECONDARY POLYCYTHEMIA 09/22/2016 CRISTINA MEADOWS MD Ot D75.1 SECONDARY POLYCYTHEMIA 09/23/2016 ABDIEL KWONG, CRISTINA Drake Ot D75.1 SECONDARY POLYCYTHEMIA 09/28/2016 CRISTINA MEADOWS MD Ot D75.1 SECONDARY POLYCYTHEMIA 09/28/2016 CRISTINA MEADOWS MD Ot D75.1 SECONDARY POLYCYTHEMIA 10/20/2016 Ot 493.00 EXTRINSIC ASTHMA, NOS 10/20/2016 Ot 493.00 EXTRINSIC ASTHMA, NOS 10/20/2016 Ot 401.9 HYPERTENSION NOS 10/20/2016 Ot 427.31 ATRIAL FIBRILLATION 10/20/2016 Ot 496 CHR AIRWAY OBSTRUCT NEC 10/20/2016 Ot V58.61 ANTICOAGULANTS,LT,CURRENT USE 10/20/2016 CARLITO KWONG, ANGELA A Ot J44.1 CHRONIC OBSTRUCTIVE PULMONARY DISEASE W 10/20/2016 CRISTINA MEADOWS MD Ot K92.1 MELENA 10/20/2016 ABDIEL KWONG, CRISTINA Drake Ot Z01.818 ENCOUNTER FOR OTHER PREPROCEDURAL EXAMIN 10/21/2016 CRISTINA MEADOWS MD Ot K92.1 MELENA 10/21/2016 ABDIEL KWONG, CRISTINA Drake Ot Z01.818 ENCOUNTER FOR OTHER PREPROCEDURAL EXAMIN 10/22/2016 CRISTINA MEADOWS MD Ot D12.2 BENIGN NEOPLASM OF ASCENDING COLON 10/22/2016 CRISTINA MEADOWS MD Ot D12.3 BENIGN NEOPLASM OF TRANSVERSE COLON 10/22/2016 CRISTINA MEADOWS MD Ot I48.1 PERSISTENT ATRIAL FIBRILLATION 10/22/2016 CRISTINA MEADOWS MD Ot J44.9 CHRONIC OBSTRUCTIVE PULMONARY DISEASE, U 10/22/2016 CRISTINA MEADOWS MD Ot K62.1 RECTAL POLYP 10/22/2016 CRISTINA MEADOWS MD Ot Z99.81 DEPENDENCE ON SUPPLEMENTAL OXYGEN 10/22/2016 CRISTINA MEADOWS MD Ot D75.1 SECONDARY POLYCYTHEMIA 10/26/2016 CRISTINA MEADOWS MD Ot K92.1 MELENA 10/26/2016 CRISTINA MEADOWS MD Ot Z01.818 ENCOUNTER FOR OTHER PREPROCEDURAL EXAMIN 10/26/2016 CRISTINA MEADOWS MD Ot D75.1 SECONDARY POLYCYTHEMIA 10/27/2016 CRISTINA MEADOWS MD Ot D75.1 SECONDARY POLYCYTHEMIA 11/03/2016 CRISTINA MEADOWS MD Ot D12.2 BENIGN NEOPLASM OF ASCENDING COLON 11/03/2016 CRISTINA MEADOWS MD Ot D12.3 BENIGN NEOPLASM OF [place] COLON 11/03/2016 CRISTINA MEADOWS MD Ot I48.1 PERSISTENT ATRIAL FIBRILLATION 11/03/2016 CRISTINA MEADOWS MD Ot J44.9 CHRONIC OBSTRUCTIVE PULMONARY DISEASE, U 11/03/2016 CRISTINA MEADOWS MD Ot K62.1 RECTAL POLYP 11/03/2016 CRISTINA MEADOWS MD Ot Z99.81 DEPENDENCE ON SUPPLEMENTAL OXYGEN 11/18/2016 CRISTINA MEADOWS MD Ot D75.1 SECONDARY POLYCYTHEMIA 11/18/2016 CRISTINA MEADOWS MD Ot D75.1 SECONDARY POLYCYTHEMIA 11/18/2016 CRISITNA MEADOWS MD Ot D75.1 SECONDARY POLYCYTHEMIA 11/27/2016 CRISTINA MEADOWS MD Ot D75.1 SECONDARY POLYCYTHEMIA 12/20/2016 CRISTINA MEADOWS MD Ot D75.1 SECONDARY POLYCYTHEMIA 12/20/2016 CRISTINA MEADOWS MD Ot D75.1 SECONDARY POLYCYTHEMIA 12/21/2016 ABDIEL KWONG, [...] UNSPECIFIED, INITIAL 01/17/2017 CRISTY ANAND Ot Y92.[address] IN [facility] NON-INSTITUT (PRIVATE 01/17/2017 CRISTY ANAND Ot Z87.891 PERSONAL HISTORY OF NICOTINE DEPENDENCE 01/19/2017 ABDIEL KWONG, CRISTINA Drake Ot D75.1 SECONDARY POLYCYTHEMIA 01/21/2017 ABDIEL KWONG, CRISTINA Drake Ot D75.1 SECONDARY POLYCYTHEMIA 02/01/2017 ABDIEL KWONG, CRISTINA Drake Ot D75.1 SECONDARY POLYCYTHEMIA 02/16/2017 ABDIEL KWONG, CRISTINA Drake Ot D75.1 SECONDARY POLYCYTHEMIA 03/16/2017 ABDIEL KWONG, CRISTINA Drake Ot D75.1 SECONDARY POLYCYTHEMIA 03/16/2017 ABDIEL KWONG, CRISTINA Drake Ot D75.1 SECONDARY POLYCYTHEMIA 03/20/2017 ABDIEL KWONG, CRISTINA Drake Ot D75.1 SECONDARY POLYCYTHEMIA 04/13/2017 ABDIEL KWONG, CRISTINA Drake Ot D75.1 SECONDARY POLYCYTHEMIA 04/13/2017 ABDIEL KWONG, CRISTINA Drake Ot D75.1 SECONDARY POLYCYTHEMIA 04/13/2017 ABDIEL KWONG, CRISTINA Drake Ot D75.1 SECONDARY POLYCYTHEMIA 04/14/2017 ABDIEL KWONG, CRISTINA Drake Ot D75.1 SECONDARY POLYCYTHEMIA 05/11/2017 ABDIEL KWONG, CRISTINA Drake Ot D75.1 SECONDARY POLYCYTHEMIA 05/18/2017 ABDIEL KWONG, CRISTINA Drake Ot D75.1 SECONDARY POLYCYTHEMIA 06/08/2017 ABDIEL KWONG, [...] D75.1 SECONDARY POLYCYTHEMIA 11/01/2017 ABDIEL KWONG, CRISTINA rDake Ot D75.1 SECONDARY POLYCYTHEMIA 11/02/2017 ABDIEL KWONG, CRISTINA Drake Ot D75.1 SECONDARY POLYCYTHEMIA 11/04/2017 ABDIEL KWONG, CRISTINA Drake Ot D75.1 SECONDARY POLYCYTHEMIA 11/07/2017 ABDIEL KWONG, CRISTINA Drake Ot D75.1 SECONDARY POLYCYTHEMIA 11/09/2017 KRISTIN FISH BOOTMAKER HAND Ot 272.4 HYPERLIPIDEMIA NEC/NOS 11/09/2017 KRISTIN FISH BOOTMAKER HAND Ot 414.00 CORON ATHEROSCLER NOS TYPE VESSEL, NATIV 11/09/2017 KRISTIN FISH BOOTMAKER HAND Ot E78.4 OTHER HYPERLIPIDEMIA 11/09/2017 KRISTIN FISH BOOTMAKER HAND Ot I25.10 ATHSCL HEART DISEASE OF [place] CORONARY 11/09/2017 Ot 493.00 EXTRINSIC ASTHMA, NOS [...] CORON ATHEROSCLER NOS TYPE VESSEL, NATIV 11/09/2017 ANTOLNI PEARL MD Ot 424.0 MITRAL VALVE DISORDER [...] MD Ot I25.10 ATHSCL HEART DISEASE OF [place] CORONARY 11/09/2017 ANTOLIN PEARL MD Ot I48.0 PAROXYSMAL ATRIAL FIBRILLATION 11/09/2017 ANTOLIN PEARL MD Ot I48.91 UNSPECIFIED ATRIAL FIBRILLATION 11/09/2017 ANTOLIN PEARL MD Ot I50.9 HEART FAILURE, UNSPECIFIED 11/09/2017 ANTOLIN PEARL MD Ot E78.2 MIXED HYPERLIPIDEMIA 11/09/2017 ANTOLIN PEARL MD Ot I11.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 11/09/2017 ANTOLIN PEARL MD Ot I25.10 ATHSCL HEART DISEASE OF [place] CORONARY 11/09/2017 ANTOLIN PEARL MD Ot I48.0 PAROXYSMAL ATRIAL FIBRILLATION 11/09/2017 ANTOLIN PEARL MD Ot I50.9 HEART FAILURE, UNSPECIFIED 11/09/2017 CRISTIAN MEADOWS MD Ot D75.1 SECONDARY POLYCYTHEMIA 11/09/2017 CRISTINA MEADOWS MD Ot D75.1 SECONDARY POLYCYTHEMIA 11/10/2017 CRISTINA MEADOWS MD Ot D75.1 SECONDARY POLYCYTHEMIA 11/23/2017 MARIELA TERRY MD Ot E78.00 PURE HYPERCHOLESTEROLEMIA, UNSPECIFIED 11/23/2017 MARIELA TERRY MD Ot H57.11 OCULAR PAIN, RIGHT EYE 11/23/2017 MARIELA TERRY MD Ot I10 ESSENTIAL (PRIMARY) HYPERTENSION 11/23/2017 MARIELA TERRY MD Ot I42.9 CARDIOMYOPATHY, UNSPECIFIED 11/23/2017 MARIELA TERRY MD Ot I48.91 UNSPECIFIED ATRIAL FIBRILLATION 11/23/2017 MARIELA TERRY MD Ot J44.9 CHRONIC OBSTRUCTIVE PULMONARY DISEASE, U 11/23/2017 MARIELA TERRY MD Ot S05.01XA INJ CONJUNCTIVA AND CORNEAL ABRASION W/O 11/23/2017 MARIELA TERRY MD Ot X58.XXXA EXPOSURE TO OTHER SPECIFIED FACTORS, INI 11/23/2017 MARIELA TERRY MD Ot Z79.51 ALUMINUM SIDING MECHANIC (CURRENT) USE OF INHALED STERO 11/23/2017 MARIELA TERRY MD Ot Z87.891 PERSONAL HISTORY OF NICOTINE DEPENDENCE 11/25/2017 MARIELA TERRY MD Ot E78.00 PURE HYPERCHOLESTEROLEMIA, UNSPECIFIED 11/25/2017 MARIELA TERRY MD Ot H57.11 OCULAR PAIN, RIGHT EYE 11/25/2017 MARIELA TERRY MD Ot I10 ESSENTIAL (PRIMARY) HYPERTENSION 11/25/2017 MARIELA TERRY MD Ot I42.9 CARDIOMYOPATHY, UNSPECIFIED 11/25/2017 MARIELA TERRY MD Ot I48.91 UNSPECIFIED ATRIAL FIBRILLATION 11/25/2017 MARIELA TERRY MD, Ot J44.9 CHRONIC OBSTRUCTIVE PULMONARY DISEASE, U 11/25/2017 MARIELA TERRY MD Ot S05.01XA INJ CONJUNCTIVA AND CORNEAL ABRASION W/O 11/25/2017 MARIELA TERRY MD Ot X58.XXXA EXPOSURE TO OTHER SPECIFIED FACTORS, INI 11/25/2017 MARIELA TERRY MD Ot Z79.51 ALUMINUM SIDING MECHANIC (CURRENT) USE OF INHALED STERO 11/25/2017 MARIELA TERRY MD Ot Z87.891 PERSONAL HISTORY OF NICOTINE DEPENDENCE 11/27/2017 ABDIEL KWONG, CRISTINA Drake Ot D75.1 SECONDARY POLYCYTHEMIA 12/07/2017 CRISTINA MEADOWS MD Ot D75.1 SECONDARY POLYCYTHEMIA 03/07/2018 CRISTINA MEADOWS MD Ot D75.1 SECONDARY POLYCYTHEMIA 05/09/2018 Ot 493.00 EXTRINSIC ASTHMA, NOS 05/09/2018 ANTOLIN PEARL MD Ot 272.4 HYPERLIPIDEMIA NEC/NOS 05/09/2018 ANTOLIN PEARL MD Ot 414.00 CORON ATHEROSCLER NOS TYPE VESSEL, NATIV 05/09/2018 Ot 493.00 EXTRINSIC ASTHMA, NOS 05/09/2018 ANTOLIN PEARL MD Ot 272.4 HYPERLIPIDEMIA NEC/NOS 05/09/2018 ANTOLIN PEARL MD Ot 397.0 TRICUSPID VALVE DISEASE 05/09/2018 ANTOLIN PEARL MD Ot 401.9 HYPERTENSION NOS 05/09/2018 ANTOLIN PEARL MD Ot 414.00 CORON ATHEROSCLER NOS TYPE VESSEL, NATIV 05/09/2018 ANTOLIN PEARL MD Ot 424.0 MITRAL VALVE DISORDER 05/09/2018 ANTOLIN PEARL MD Ot 427.31 ATRIAL FIBRILLATION 05/09/2018 ANTOLIN PEARL MD Ot 428.0 CONGESTIVE HEART FAILURE NOS 05/09/2018 ANTOLIN PEARL MD Ot 272.4 HYPERLIPIDEMIA NEC/NOS 05/09/2018 ANTOLIN PEARL MD Ot 401.9 HYPERTENSION NOS 05/09/2018 ANTOLIN PEARL MD Ot 414.00 CORON ATHEROSCLER NOS TYPE VESSEL, NATIV 05/09/2018 ANTOLIN PEARL MD Ot 427.31 ATRIAL FIBRILLATION 05/09/2018 ANTOLIN PEARL MD Ot 428.0 CONGESTIVE HEART FAILURE NOS 05/09/2018 ANTOLIN PEARL MD Ot 496 CHR AIRWAY OBSTRUCT NEC 05/09/2018 ANTOLIN PEARL MD Ot 760.9 MATERNAL COND NOS AFF NB 05/09/2018 ANTOLIN PEARL MD Ot 272.4 HYPERLIPIDEMIA NEC/NOS 05/09/2018 ANTOLIN PEARL MD Ot 401.9 HYPERTENSION NOS 05/09/2018 ANTOLIN PEARL MD Ot 414.00 CORON ATHEROSCLER NOS TYPE VESSEL, NATIV 05/09/2018 ANTOLIN PEARL MD Ot 427.31 ATRIAL FIBRILLATION 05/09/2018 ANTOLIN PEARL MD Ot 428.0 CONGESTIVE HEART FAILURE NOS 05/09/2018 ANTOLIN PEARL MD Ot 496 CHR AIRWAY OBSTRUCT NEC 05/09/2018 ANTOLIN PEARL MD Ot 786.09 RESPIRATORY ABNORM NEC 05/09/2018 CRISTINA MEADOWS MD Ot 242.90 THYROTOX NOS NO CRISIS 05/09/2018 CRISTINA MEADOWS MD Ot 427.31 ATRIAL FIBRILLATION 05/09/2018 CRISTINA MEADOWS MD Ot V58.61 ANTICOAGULANTS,LT,CURRENT USE 05/09/2018 Ot 401.9 HYPERTENSION NOS 05/09/2018 Ot 427.31 ATRIAL FIBRILLATION 05/09/2018 Ot 496 CHR AIRWAY OBSTRUCT NEC 05/09/2018 Ot V58.61 ANTICOAGULANTS,LT,CURRENT USE 05/09/2018 Ot 272.4 HYPERLIPIDEMIA NEC/NOS 05/09/2018 CARLITO KWONG, ANGELA Chavarria Ot J44.1 CHRONIC OBSTRUCTIVE PULMONARY DISEASE W 05/09/2018 ANTOLIN PEARL MD Ot E78.2 MIXED HYPERLIPIDEMIA 05/09/2018 RYANNE MD, BASHAR J Ot I11.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 05/09/2018 ANTOLIN PEARL MD Ot I25.10 ATHSCL HEART DISEASE OF [place] CORONARY 05/09/2018 ANTOLIN PEARL MD Ot I48.0 PAROXYSMAL ATRIAL FIBRILLATION 05/09/2018 ANTOLIN PEARL MD Ot I48.91 UNSPECIFIED ATRIAL FIBRILLATION 05/09/2018 ANTOLIN PEARL MD Ot I50.9 HEART FAILURE, UNSPECIFIED 05/09/2018 ANTOLIN PEARL MD Ot E78.2 MIXED HYPERLIPIDEMIA 05/09/2018 ANTOLIN PEARL MD Ot I11.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 05/09/2018 ANTOLIN PEARL MD Ot I25.10 ATHSCL HEART DISEASE OF [place] CORONARY 05/09/2018 ANTOLIN PEARL MD Ot I48.0 PAROXYSMAL ATRIAL FIBRILLATION 05/09/2018 ANTOLIN PEARL MD Ot I50.9 HEART FAILURE, UNSPECIFIED 05/09/2018 ABDIEL KWONG, CRISTINA Drake Ot D75.1 SECONDARY POLYCYTHEMIA 05/11/2018 ANTOLIN PEARL MD Ot I11.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 05/11/2018 ANTOLIN PEARL MD Ot I25.10 ATHSCL HEART DISEASE OF [place] CORONARY 05/11/2018 ANTOLIN PEARL MD Ot I48.91 UNSPECIFIED ATRIAL FIBRILLATION 05/11/2018 ANTOLIN PEARL MD Ot I50.9 HEART FAILURE, UNSPECIFIED 05/11/2018 ANTOLIN PEARL MD Ot J44.9 CHRONIC OBSTRUCTIVE PULMONARY DISEASE, U 05/11/2018 ANTOLIN PEARL MD Ot R06.09 OTHER FORMS OF DYSPNEA 05/30/2018 ANTOLIN PEARL MD Ot I11.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 05/30/2018 ANTOLIN PEARL MD Ot I25.10 ATHSCL HEART DISEASE OF [place] CORONARY 05/30/2018 ANTOLIN PEARL MD Ot I48.91 UNSPECIFIED ATRIAL FIBRILLATION 05/30/2018 ANTOLIN PEARL MD Ot I50.9 HEART FAILURE, UNSPECIFIED 05/30/2018 ANTOLIN PEARL MD Ot J44.9 CHRONIC OBSTRUCTIVE PULMONARY DISEASE, U 05/30/2018 ANTOLIN PEARL MD Ot R06.09 OTHER FORMS OF DYSPNEA 06/12/2018 ANTOLIN PEARL MD, Ot I11.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 06/12/2018 ANTOLIN PEARL MD, Ot I25.10 ATHSCL HEART DISEASE OF [place] CORONARY 06/12/2018 ANTOLIN PEARL MD, Ot I48.91 UNSPECIFIED ATRIAL FIBRILLATION 06/12/2018 ANTOLIN PEARL MD, Ot I50.9 HEART FAILURE, UNSPECIFIED 06/12/2018 ANTOLIN PEARL MD, Ot J44.9 CHRONIC OBSTRUCTIVE PULMONARY DISEASE, U 06/12/2018 ANTOLIN PEARL MD, Ot R06.09 OTHER FORMS OF DYSPNEA Procedures Code Description Performed By Performed On [...] Automated erythrocyte mean corpuscular hemoglobin concentration measurement (mass/volume) 32 g/dL 32-36 Automated erythrocyte distribution width ratio 18.7 % 10.0- 14.5 Automated blood platelet count (count/volume) 92 10*3/uL 130- 400 Automated blood platelet mean volume measurement 10.1 [foz_us] 7.4-10.4 Complete urinalysis with reflex to culture - 06/09/16 07:17 Urine color determination YELLOW NRG Urine clarity determination CLEAR NRG Urine pH measurement by test strip 6 5-9 Specific gravity of urine by test strip 1.020 1.016-1.022 Urine protein assay by test strip, semi-quantitative [...] sediment leukocyte count by microscopy (number/high power field) [HPF] NRG Bacteria detection in urine sediment [...] Serum or plasma aspartate aminotransferase measurement (enzymatic activity/volume) 31 U/L 5-34 Serum or plasma alanine aminotransferase measurement (enzymatic activity/volume) 22 U/L 0-55 Serum or plasma protein measurement (mass/volume) 7.0 g/dL 6.4-8.2 Serum or plasma albumin measurement (mass/volume) 3.5 g/dL 3.2-4.5 Methicillin resistant Staphylococcus aureus (MRSA) screening culture - 06/09/16 07:17 Methicillin resistant Staphylococcus aureus (MRSA) screening culture NEG NRG Encounters ACCT No. Visit Date/Time Discharge Status Pt. Type Provider Facility Loc./Unit Complaint [id number] 05/10/2018 10:33:00 05/10/2018 23:59:59 CLS Outpatient ANTOLIN PEARL MD [facility] CARD AF, CHF, COPD, CAD [id number] 03/08/2018 00:10:00 03/08/2018 23:59:59 CLS Preadmit CRISTINA MEADOWS MD [facility] POLYCYTHEMIA [id number] 12/07/2017 13:23:00 03/07/2018 00:01:00 DIS Outpatient CRISTINA MEADOWS MD [facility] POLYCYTHEMIA [id number] 11/09/2017 09:52:00 11/27/2017 00:01:00 DIS Outpatient CRISTINA MEADOWS MD [facility] POLYCYTHEMIA [id number] 11/23/2017 18:29:00 11/23/2017 19:44:00 DIS Emergency MARIELA TERRY MD [facility] ER SOMETHING IN R EYE [id number] 10/10/2017 09:47:00 11/01/2017 00:01:00 DIS Outpatient CRISTINA MEADOWS MD [facility] POLYCYTHEMIA [id number] 07/06/2017 09:50:00 07/12/2017 00:01:00 DIS Outpatient CRISTINA MEADOWS MD [facility] POLYCYTHEMIA [id number] 03/16/2017 09:45:00 03/20/2017 00:01:00 DIS Outpatient CRISTINA MEADOWS MD [facility] POLYCYTHEMIA [id number] 01/17/2017 20:50:00 01/17/2017 23:03:00 DIS Emergency MITCHEL BLAS CRISTY Petit [facility] ER L SHOULDER INJ [id number] 11/18/2016 09:43:00 11/27/2016 00:01:00 DIS Outpatient CRISTINA MEADOWS MD [facility] POLYCYTHEMIA [id number] 10/22/2016 08:50:00 10/22/2016 13:05:00 DIS Outpatient CRISTINA MEADOWS MD [facility] ENDO TERESA OCCULT POS/BLOOD IN STOOL [id number] 10/20/2016 06:11:00 10/20/2016 09:55:00 DIS Outpatient CRISTINA MEADOWS MD [facility] PREOP OCCULT + BLOOD IN STOOL [id number] 08/25/2016 12:50:00 09/13/2016 00:01:00 DIS Outpatient CRISTINA MEADOWS MD [facility] POLYCYTHEMIA [id number] 06/09/2016 07:00:00 06/09/2016 15:38:00 DIS Outpatient ANTOLIN PEARL MD [facility] CATH ABN STRESS TEST [id number] 06/02/2016 07:22:00 06/02/2016 23:59:59 CLS Outpatient ANTOLIN PEARL MD [facility] CARD AF,CAD,CHF,HTN,MIXED HYPERLIPIDEMIA, I48.0 [id number] 05/24/2016 12:26:00 05/24/2016 23:59:59 CLS Outpatient ANTOLIN PEARL MD [facility] CARD AF,CAD [id number] 11/17/2015 08:15:00 11/17/2015 23:59:59 CLS Preadmit CARLITO KWONG, ANGELA Chavarria [facility] PULM COPD WITH ACUTE EXACERBATION [id number] 11/04/2015 08:00:00 11/16/2015 00:01:00 DIS Outpatient ANGELA ESTEBAN MD [facility] PULM COPD WITH ACUTE EXACERBATION [id number] 08/27/2013 09:24:00 10/07/2013 00:01:00 DIS Outpatient CRISTINA MEADOWS MD [facility] LAB COUMEDIN THERAPY,COPD,A FIB, ELEVATED DIG LEVEL [id number] 08/27/2013 09:21:00 08/27/2013 23:59:59 CLS Outpatient CRISTINA MEADOWS MD [facility] LAB [id number] 07/24/2013 07:56:00 07/24/2013 23:59:59 CLS Outpatient ANTOLIN PEARL MD [facility] LAB AF,CAD,CHF,COPD,HTN,HYPERLIPIDEMIA [id number] 06/08/2013 13:03:00 07/05/2013 00:01:00 DIS Outpatient CRISTINA MEADOWS MD [facility] LAB COUMEDIN THERAPY,COPD,A FIB, ELEVATED DIG LEVEL [id number] 06/05/2013 11:19:00 06/05/2013 23:59:59 CLS Outpatient ANTOLIN PEARL MD [facility] RAD AFIB,CAD,CHF,COPD [id number] 05/04/2013 13:05:00 05/04/2013 23:59:59 CLS Outpatient ANTOLIN PEARL MD [facility] CARD AFIB,CAD,CHF,COPD [id number] 03/21/2013 13:37:00 04/02/2013 00:01:00 DIS Outpatient CRISTINA MEADOWS MD [facility] LAB COUMEDIN THERAPY,COPD,A FIB, ELEVATED DIG LEVEL [id number] 11/17/2012 09:55:00 02/15/2013 00:01:00 DIS Outpatient ANGELA ESTEBAN MD [facility] SDC EXACERBATION ASTHMA [id number] 01/03/2013 09:07:00 01/03/2013 23:59:59 CLS Outpatient ANTOLIN PEARL MD [facility] LAB CAD,HYPERLIPIDEMIA [id number] 12/01/2012 09:04:00 12/21/2012 00:01:00 DIS Outpatient CRISTINA MEADOWS MD [facility] LAB COUMEDIN THERAPY,COPD,A FIB, ELEVATED DIG LEVEL [id number] 11/03/2012 09:52:00 12/21/2012 00:01:00 DIS Outpatient ANGELA ESTEBAN MD [facility] ONC [id number] 06/20/2012 09:43:00 09/12/2012 00:01:00 DIS Outpatient CRISTINA MEADOWS MD [facility] LAB COUMEDIN THERAPY,COPD,A FIB, ELEVATED DIG LEVEL [id number] 07/12/2012 09:06:00 07/12/2012 23:59:59 CLS Outpatient KRISTIN FISH [facility] LAB CAD, HYPERLIPIDEMIA [id number] 11/22/2014 08:17:00 Document Registration [id number] 11/22/2014 08:17:00 Document Registration [id number] 11/22/2014 08:17:00 Document Registration [id number] 11/22/2014 08:17:00 Document Registration [id number] 11/22/2014 08:17:00 Document Registration [id number] 11/22/2014 08:17:00 Document Registration [id number] 11/22/2014 08:17:00 Document Registration [id number] 11/22/2014 08:17:00 Document Registration [id number] 11/22/2014 08:17:00 Document Registration [id number] 11/22/2014 08:17:00 Document Registration [id number] 11/22/2014 08:17:00 Document Registration [id number] 11/22/2014 08:17:00 Document Registration [id number] 01/09/2014 12:29:00 Document Registration [id number] 02/16/2013 00:00:00 Document Registration [id number] 12/22/2012 00:00:00 Document Registration [id number] 05/31/2012 13:47:00 Document Registration [id number] 01/12/2012 08:34:00 Document Registration [id number] 10/29/2011 08:40:00 Document Registration [id number] 09/21/2011 10:26:00 Document Registration [id number] 07/06/2011 09:33:00 Document Registration [id number] 06/22/2011 12:44:00 Document Registration [id number] 06/10/2011 10:00:00 Document Registration [id number] 05/11/2011 11:13:00 Document Registration [id number] 05/01/2011 07:53:00 Document Registration [id number] 04/27/2011 07:47:00 Document Registration [id number] 04/19/2011 13:10:00 Document Registration [id number] 03/18/2011 16:06:00 Document Registration [id number] 03/08/2011 14:18:00 Document Registration [id number] 03/08/2011 12:38:00 Document Registration [id number] 02/23/2011 10:10:00 Document Registration [id number] 02/23/2011 10:04:00 Document Registration [id number] 02/11/2011 11:53:00 Document Registration [id number] 01/04/2011 08:53:00 Document Registration [id number] 01/04/2011 08:46:00 Document Registration [id number] 10/05/2010 07:55:00 Document Registration [id number] 08/19/2010 09:05:00 Document Registration [id number] 03/20/2010 10:49:00 Document Registration [id number] 01/28/2010 10:30:00 Document Registration [id number] 10/20/2009 09:24:00 Document Registration [id number] 09/09/2009 21:36:00 Document Registration [id number] 09/06/2009 16:00:00 Document Registration [id number] 07/11/2009 13:20:00 Document Registration [id number] 06/21/2009 10:41:00 Document Registration [id number] 01/09/2014 10:03:43 ACT Document Registration
== END 2018-08-19 18:18 | disposition home or self-care (01) ==
LOC: EDUNIT# 14:33 → ER 14:34
DX: J44.1 Chronic obstructive pulmonary disease with (acute) exacerbation (principal); R42 Dizziness and giddiness; R06.89 Other abnormalities of breathing; I11.0 Hypertensive heart disease with heart failure; I50.9 Heart failure, unspecified; I25.10 Atherosclerotic heart disease of native coronary artery without angina pectoris; I48.91 Unspecified atrial fibrillation; E78.00 Pure hypercholesterolemia, unspecified; Z79.01 Long term (current) use of anticoagulants; Z79.51 Long term (current) use of inhaled steroids; Z87.891 Personal history of nicotine dependence; Z99.81 Dependence on supplemental oxygen
CPT/HCPCS: 36415; 36600; 71046; 80053; 80162; 82805; 83735; 83874; 83880; 84484; 85025; 85610; 85730; 86141; 93005; 93041; 94640

== ENCOUNTER 2018-08-24 11:40 | Inpatient (IN) | payer MEDICARE, MEDICAID ==
[~2018-08-24] VITALS: Ht 167.6 cm; Wt 81.7 kg
[~2018-08-24 11:40] MED LIST changes: +ALBU2.5V4 INH
[2018-08-24] MEDS ORDERED: RT-ALBUTEROL/IPRATROPIUM 3 ML (DUONEB) VIAL INH ONE (11:45)
--- NOTE | 2018-08-24 11:45 | NUR ---
MS HERE BY SELF. PT ALERT GCS 15. PT APPARATNELY CAME FROM DR CLINIC TODAY. PT HAD LOW P OX AND BEEN C/O DYSPNEA. PT RELATES ON HOME O2 24/7 2 LITERS. ON 3 IN ER. P OX SHOWS 96, BP MACHINE IS 120/98. SOMEONE DOING IV LABS. CURRENTLY PT DENIES CHEST AND ABD PAIN. DOES C/O DYSPNEA " SHALLOW" RESP ARE SHALLOW NONLABORED AND PT SPEAKS FULL SENTENCES. NO CYANOSIS OR DUSKINESS OR ACCESSORY MUSCLE USE NOTED. PT DENIES N/V/D. DENIES FEVER AT HOME. PT DOES C/O NONSPECIFIC GENERAL WEAKNESS " BLAH". CANT GET TELE TO WORK. LUNGS CRACKLES LEFT SIDE ONLY. ABD SOFT NONDISTEEENDED NEG PAIN WITH PALPATION AND NEG PULSATING MASSESS. NEG EDEMA NOTED. DONE SARAI PT 1159.
--- OUTSIDE RECORDS SUMMARY | 2018-08-24 11:47 | XMS REPORT | Continuity of Care Document ---
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 02/13/2011 Ot 414.8 CHR ISCHEMIC HRT [...] NEC/NOS 03/09/2011 Ot 414.01 CORONARY ATHEROSCLEROSIS OF [place] CORON 03/09/2011 Ot 416.9 CHR PULMON HEART [...] INFARCT,IN 04/01/2011 Ot 414.01 CORONARY ATHEROSCLEROSIS OF [place] CORON 04/01/2011 Ot 414.8 CHR ISCHEMIC HRT [...] MD Ot V58.61 ANTICOAGULANTS,LT,CURRENT USE 07/05/2013 CRISTINA MEDAOWS MD Ot 401.9 HYPERTENSION NOS 07/05/2013 CRISTINA [...] KWONG, ANTOLIN J Ot 427.31 11/22/2014 RYANNE KWOGN, YOSSIHAR J Ot 428.0 11/22/2014 RYANNE KWONG, [...] V58.61 11/22/2014 Ot 272.4 11/22/2014 KRISTIN FISH CARPENTER MOLD Ot 272.4 11/22/2014 KRISTIN FISH CARPENTER MOLD Ot 414.00 11/22/2014 KRISTIN FISH CARPENTER MOLD Ot 272.4 11/22/2014 KRISTIN FISH CARPENTER MOLD Ot 414.00 11/22/2014 KRISTIN FISH CARPENTER MOLD Ot 272.4 11/22/2014 FISHKRISTIN WILSON CARPENTER MOLD Ot 414.00 08/18/2015 Ot 496 CHR AIRWAY OBSTRUCT NEC 08/18/2015 Ot 789.59 OTHER ASCITES 08/18/2015 Ot 272.4 HYPERLIPIDEMIA NEC/NOS 08/18/2015 Ot 401.9 HYPERTENSION NOS 08/18/2015 Ot 272.4 HYPERLIPIDEMIA NEC/NOS 08/18/2015 Ot 414.00 CORON ATHEROSCLER NOS TYPE VESSEL, NATIV 08/18/2015 Ot 276.7 HYPERPOTASSEMIA 08/18/2015 Ot 414.00 CORON ATHEROSCLER NOS TYPE VESSEL, NATIV 08/18/2015 Ot V58.69 OTH MED,LT,CURRENT USE 08/18/2015 Ot 414.01 CORONARY ATHEROSCLEROSIS OF [place] CORON 08/18/2015 Ot 786.50 CHEST PAIN NOS 08/18/2015 Ot 786.05 SHORTNESS OF BREATH 08/18/2015 Ot 272.4 HYPERLIPIDEMIA NEC/NOS 08/18/2015 Ot V58.69 OTH MED,LT,CURRENT USE 08/18/2015 Ot V58.83 ENCOUNTER FOR THERAPEUTIC DRUG MONITORIN 08/18/2015 Ot 272.4 HYPERLIPIDEMIA NEC/NOS 08/18/2015 Ot 414.00 CORON ATHEROSCLER NOS TYPE VESSEL, NATIV 08/18/2015 KRISTIN FISH CARPENTER MOLD Ot 272.4 HYPERLIPIDEMIA NEC/NOS 08/18/2015 FISHKRISTIN WILSON CARPENTER MOLD Ot 414.00 CORON ATHEROSCLER NOS TYPE VESSEL, NATIV 08/18/2015 KRISTIN FISH CARPENTER MOLD Ot E78.4 OTHER HYPERLIPIDEMIA 08/18/2015 KRISTIN FISH CARPENTER MOLD Ot I25.10 ATHSCL HEART DISEASE OF [place] CORONARY 08/18/2015 Ot 493.00 EXTRINSIC ASTHMA, NOS [...] USE 05/24/2016 Ot 414.01 CORONARY ATHEROSCLEROSIS OF [place] CORON 05/24/2016 Ot 786.50 CHEST PAIN NOS 05/24/2016 Ot 786.05 SHORTNESS OF BREATH 05/24/2016 Ot 272.4 HYPERLIPIDEMIA NEC/NOS 05/24/2016 Ot V58.69 OTH MED,LT,CURRENT USE 05/24/2016 Ot V58.83 ENCOUNTER FOR THERAPEUTIC DRUG MONITORIN 05/24/2016 Ot 272.4 HYPERLIPIDEMIA NEC/NOS 05/24/2016 Ot 414.00 CORON ATHEROSCLER NOS TYPE VESSEL, NATIV 05/24/2016 FISHKRISTIN WILSON CARPENTER MOLD Ot 272.4 HYPERLIPIDEMIA NEC/NOS 05/24/2016 KRISTIN FISH CARPENTER MOLD Ot 414.00 CORON ATHEROSCLER NOS TYPE VESSEL, NATIV 05/24/2016 KRISTIN FISH CARPENTER MOLD Ot E78.4 OTHER HYPERLIPIDEMIA 05/24/2016 FISHKRISTIN WILSON CARPENTER MOLD Ot I25.10 ATHSCL HEART DISEASE OF [place] CORONARY 05/24/2016 Ot 493.00 EXTRINSIC ASTHMA, NOS [...] MD Ot I25.10 ATHSCL HEART DISEASE OF [place] CORONARY 05/30/2016 ANTOLIN PEARL MD Ot I48.0 PAROXYSMAL ATRIAL FIBRILLATION 05/30/2016 ANTOLIN PEARL MD Ot I50.9 HEART FAILURE, UNSPECIFIED 06/08/2016 ANTOLIN PEARL MD Ot E78.2 MIXED HYPERLIPIDEMIA 06/08/2016 ANTOLIN PEARL MD Ot I11.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 06/08/2016 ANTOLIN PEARL MD Ot I25.10 ATHSCL HEART DISEASE OF [place] CORONARY 06/08/2016 ANTOLIN PEARL MD Ot I48.0 PAROXYSMAL ATRIAL FIBRILLATION 06/08/2016 ANTOLIN PEARL MD Ot I48.91 UNSPECIFIED ATRIAL FIBRILLATION 06/08/2016 ANTOLIN PEARL MD Ot I50.9 HEART FAILURE, UNSPECIFIED 06/09/2016 ANTOLIN PEARL MD Ot E78.5 HYPERLIPIDEMIA, UNSPECIFIED 06/09/2016 ANTOLIN PEARL MD Ot I12.9 HYPERTENSIVE CHRONIC KIDNEY DISEASE W ST 06/09/2016 ANTOLIN PEARL MD Ot I25.10 ATHSCL HEART DISEASE OF [place] CORONARY 06/09/2016 ANTOLIN PEARL MD Ot I27.81 [...] CARDIOVASCULAR 06/09/2016 ANTOLIN PEARL MD Ot Z79.01 LONGTERM (CURRENT) USE OF ANTICOAGULANT 06/09/2016 ANTOLIN PEARL MD Ot Z79.899 OTHER LONGTERM (CURRENT) DRUG THERAPY 06/09/2016 ANTOLIN PEARL MD [...] J Ot I25.10 ATHSCL HEART DISEASE OF [place] CORONARY 07/05/2016 ANTOLIN PEARL MD J Ot I48.0 PAROXYSMAL ATRIAL FIBRILLATION 07/05/2016 ANTOLIN PEARL MD Ot I48.91 UNSPECIFIED ATRIAL FIBRILLATION 07/05/2016 ANTOLIN PEARL MD Ot I50.9 HEART FAILURE, UNSPECIFIED 07/09/2016 ANTOLIN PEARL MD Ot E78.2 MIXED HYPERLIPIDEMIA 07/09/2016 ANTOLIN PEARL MD J Ot I11.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 07/09/2016 ANTOLIN PEARL MD Ot I25.10 ATHSCL HEART DISEASE OF [place] CORONARY 07/09/2016 ANTOLIN PEARL MD Ot I48.0 [...] MD Ot I25.10 ATHSCL HEART DISEASE OF [place] CORONARY 07/28/2016 ANTOLIN PEARL MD Ot I48.0 [...] MD Ot I25.10 ATHSCL HEART DISEASE OF [place] CORONARY 08/03/2016 ANTOLIN PEARL MD Ot I48.0 PAROXYSMAL ATRIAL FIBRILLATION 08/03/2016 ANTOLIN PEARL MD Ot I50.9 HEART FAILURE, UNSPECIFIED 08/09/2016 ANTOLIN PEARL MD Ot E78.2 MIXED HYPERLIPIDEMIA 08/09/2016 ANTOLIN PEARL MD Ot I11.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 08/09/2016 ANTOLIN PEARL MD Ot I25.10 ATHSCL HEART DISEASE OF [place] CORONARY 08/09/2016 ANTOLIN PEARL MD Ot I48.0 [...] CRISTY ANAND Ot Y92.[address] IN [facility] NON-INSTITUT (PRIVATE 01/17/2017 CRISTY ANAND Ot Z87.891 PERSONAL HISTORY OF NICOTINE DEPENDENCE 01/19/2017 ABDIEL KWONG, CRISTINA Drake Ot D75.1 SECONDARY POLYCYTHEMIA 01/21/2017 ABDIEL KWONG, CRISTINA Drake Ot D75.1 SECONDARY POLYCYTHEMIA 02/01/2017 ABDIEL KWONG, CRISTINA Drkae Ot D75.1 SECONDARY POLYCYTHEMIA 02/16/2017 ABDIEL KWONG, [...] Ot D75.1 SECONDARY POLYCYTHEMIA 11/09/2017 KRISTIN FISH CARPENTER MOLD Ot 272.4 HYPERLIPIDEMIA NEC/NOS 11/09/2017 KRISTIN FISH CARPENTER MOLD Ot 414.00 CORON ATHEROSCLER NOS TYPE VESSEL, NATIV 11/09/2017 KRISTIN FISH CARPENTER MOLD Ot E78.4 OTHER HYPERLIPIDEMIA 11/09/2017 KRISTIN FISH CARPENTER MOLD Ot I25.10 ATHSCL HEART DISEASE OF [place] CORONARY 11/09/2017 Ot 493.00 EXTRINSIC ASTHMA, NOS [...] MD Ot I25.10 ATHSCL HEART DISEASE OF [place] CORONARY 11/09/2017 ANTOLIN PEARL MD Ot I48.0 PAROXYSMAL ATRIAL FIBRILLATION 11/09/2017 ANTOLIN PEARL MD Ot I48.91 UNSPECIFIED ATRIAL FIBRILLATION 11/09/2017 ANTOLIN PEARL MD Ot I50.9 HEART FAILURE, UNSPECIFIED 11/09/2017 ANTOLIN PEARL MD Ot E78.2 MIXED HYPERLIPIDEMIA 11/09/2017 ANTOLIN PEARL MD Ot I11.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 11/09/2017 ANTOLIN PEARL MD Ot I25.10 ATHSCL HEART DISEASE OF [place] CORONARY 11/09/2017 ANTOLIN PEARL MD Ot I48.0 [...] INI 11/23/2017 MARIELA TERRY MD Ot Z79.51 EXECUTOR OF ESTATE (CURRENT) USE OF INHALED STERO 11/23/2017 MARIELA [...] INI 11/25/2017 MARIELA TERRY MD Ot Z79.51 EXECUTOR OF ESTATE (CURRENT) USE OF INHALED STERO 11/25/2017 MARIELA TERRY MD Ot Z87.891 PERSONAL HISTORY OF NICOTINE DEPENDENCE 11/27/2017 ABDIEL KWONG, CRISTINA Drake Ot D75.1 SECONDARY POLYCYTHEMIA 12/07/2017 CRISTINA EMADOWS MD Ot D75.1 SECONDARY POLYCYTHEMIA 03/07/2018 CRISTINA [...] MD Ot I25.10 ATHSCL HEART DISEASE OF [place] CORONARY 05/09/2018 ANTOLIN PEARL MD Ot I48.0 PAROXYSMAL ATRIAL FIBRILLATION 05/09/2018 ANTOLIN PEARL MD Ot I48.91 UNSPECIFIED ATRIAL FIBRILLATION 05/09/2018 ANTOLIN PEARL MD Ot I50.9 HEART FAILURE, UNSPECIFIED 05/09/2018 ANTOLIN PEARL MD Ot E78.2 MIXED HYPERLIPIDEMIA 05/09/2018 ANTOLIN PEARL MD Ot I11.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 05/09/2018 ANTOLIN PEARL MD Ot I25.10 ATHSCL HEART DISEASE OF [place] CORONARY 05/09/2018 ANTOLIN PEARL MD Ot I48.0 PAROXYSMAL ATRIAL FIBRILLATION 05/09/2018 ANTOLIN PEARL MD Ot I50.9 HEART FAILURE, UNSPECIFIED 05/09/2018 ABDIEL KWONG, CRISTINA Drake Ot D75.1 SECONDARY POLYCYTHEMIA 05/11/2018 ANTOLIN PEARL MD Ot I11.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 05/11/2018 ANTOLIN PEARL MD Ot I25.10 ATHSCL HEART DISEASE OF [place] CORONARY 05/11/2018 ANTOLIN PEARL MD Ot I48.91 UNSPECIFIED ATRIAL FIBRILLATION 05/11/2018 ANTOLIN PEARL MD Ot I50.9 HEART FAILURE, UNSPECIFIED 05/11/2018 ANTOLIN PEARL MD Ot J44.9 CHRONIC OBSTRUCTIVE PULMONARY DISEASE, U 05/11/2018 ANTOLIN PEARL MD Ot R06.09 OTHER FORMS OF DYSPNEA 05/30/2018 ANTOLIN PEARL MD Ot I11.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 05/30/2018 ANTOLIN PEARL MD Ot I25.10 ATHSCL HEART DISEASE OF [place] CORONARY 05/30/2018 ANTOLIN PEARL MD Ot I48.91 UNSPECIFIED ATRIAL FIBRILLATION 05/30/2018 ANTOLIN PEARL MD Ot I50.9 HEART FAILURE, UNSPECIFIED 05/30/2018 ANTOLIN PEARL MD Ot J44.9 CHRONIC OBSTRUCTIVE PULMONARY DISEASE, U 05/30/2018 ANTOLIN PEARL MD Ot R06.09 OTHER FORMS OF DYSPNEA 06/12/2018 ANTOLIN PEARL MD Ot I11.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 06/12/2018 ANTOLIN PEARL MD Ot I25.10 ATHSCL HEART DISEASE OF [place] CORONARY 06/12/2018 ANTOLIN PEARL MD Ot I48.91 UNSPECIFIED ATRIAL FIBRILLATION 06/12/2018 ANTOLIN PEARL MD Ot I50.9 HEART FAILURE, UNSPECIFIED 06/12/2018 ANTOLIN PEARL MD Ot J44.9 CHRONIC OBSTRUCTIVE PULMONARY DISEASE, U 06/12/2018 ANTOLIN PEARL MD Ot R06.09 OTHER FORMS OF DYSPNEA 08/19/2018 ANTOLIN PEARL MD Ot 272.4 HYPERLIPIDEMIA NEC/NOS 08/19/2018 ANTOLIN PEARL MD Ot 397.0 TRICUSPID VALVE DISEASE 08/19/2018 ANTOLIN PEARL MD Ot 401.9 HYPERTENSION NOS 08/19/2018 ANTOLIN PEARL MD Ot 414.00 CORON ATHEROSCLER NOS TYPE VESSEL, NATIV 08/19/2018 ANTOLIN PEARL MD Ot 424.0 MITRAL VALVE DISORDER 08/19/2018 ANTOLIN PEARL MD Ot 427.31 ATRIAL FIBRILLATION 08/19/2018 ANTOLIN PEARL MD Ot 428.0 CONGESTIVE HEART FAILURE NOS 08/19/2018 ANTOLIN PEARL MD Ot 272.4 HYPERLIPIDEMIA NEC/NOS 08/19/2018 ANTOLIN PEARL MD Ot 401.9 HYPERTENSION NOS 08/19/2018 ANTOLIN PEARL MD Ot 414.00 CORON ATHEROSCLER NOS TYPE VESSEL, NATIV 08/19/2018 ANTOLIN PEARL MD Ot 427.31 ATRIAL FIBRILLATION 08/19/2018 ANTOLIN PEARL MD Ot 428.0 CONGESTIVE HEART FAILURE NOS 08/19/2018 ANTOLIN PEARL MD Ot 496 CHR AIRWAY OBSTRUCT NEC 08/19/2018 ANTOLIN PEARL MD Ot 760.9 MATERNAL COND NOS AFF NB 08/19/2018 ANTOLIN PEARL MD Ot 272.4 HYPERLIPIDEMIA NEC/NOS 08/19/2018 ANTOLIN PEARL MD Ot 401.9 HYPERTENSION NOS 08/19/2018 ANTOLIN PEARL MD Ot 414.00 CORON ATHEROSCLER NOS TYPE VESSEL, NATIV 08/19/2018 ANTOLIN PEARL MD Ot 427.31 ATRIAL FIBRILLATION 08/19/2018 ANTOLIN PEARL MD Ot 428.0 CONGESTIVE HEART FAILURE NOS 08/19/2018 ANTOLIN PEARL MD Ot 496 CHR AIRWAY OBSTRUCT NEC 08/19/2018 ANTOLIN PEARL MD Ot 786.09 RESPIRATORY ABNORM NEC 08/19/2018 CRISTINA MEADOWS MD Ot 242.90 THYROTOX NOS NO CRISIS 08/19/2018 CRISTINA MEADOWS MD Ot 427.31 ATRIAL FIBRILLATION 08/19/2018 CRISTINA MEADOWS MD Ot V58.61 ANTICOAGULANTS,LT,CURRENT USE 08/19/2018 Ot 401.9 HYPERTENSION NOS 08/19/2018 Ot 427.31 ATRIAL FIBRILLATION 08/19/2018 Ot 496 CHR AIRWAY OBSTRUCT NEC 08/19/2018 Ot V58.61 ANTICOAGULANTS,LT,CURRENT USE 08/19/2018 Ot 272.4 HYPERLIPIDEMIA NEC/NOS 08/19/2018 CARLITO KWONG, ANGELA Chavarria Ot J44.1 CHRONIC OBSTRUCTIVE PULMONARY DISEASE W 08/19/2018 ANTOLIN PEARL MD Ot E78.2 MIXED HYPERLIPIDEMIA 08/19/2018 ANTOLIN PEARL MD Ot I11.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 08/19/2018 ANTOLIN PEARL MD Ot I25.10 ATHSCL HEART DISEASE OF [place] CORONARY 08/19/2018 ANTOLIN PEARL MD Ot I48.0 PAROXYSMAL ATRIAL FIBRILLATION 08/19/2018 ANTOLIN PEARL MD Ot I48.91 UNSPECIFIED ATRIAL FIBRILLATION 08/19/2018 ANTOLIN PEARL MD Ot I50.9 HEART FAILURE, UNSPECIFIED 08/19/2018 ANTOLIN PEARL MD Ot E78.2 MIXED HYPERLIPIDEMIA 08/19/2018 ANTOLIN PEARL MD Ot I11.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 08/19/2018 ANTOLIN PEARL MD Ot I25.10 ATHSCL HEART DISEASE OF [place] CORONARY 08/19/2018 ANTOLIN PEARL MD Ot I48.0 PAROXYSMAL ATRIAL FIBRILLATION 08/19/2018 ANTOLIN PEARL MD Ot I50.9 HEART FAILURE, UNSPECIFIED 08/19/2018 CRISTINA MEADOWS MD Ot D75.1 SECONDARY POLYCYTHEMIA 08/19/2018 ANTOLIN PEARL MD Ot I11.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 08/19/2018 ANTOLIN PEARL MD Ot I25.10 ATHSCL HEART DISEASE OF [place] CORONARY 08/19/2018 RYANNE KWONG, ANTOLIN Etienne Ot I48.91 UNSPECIFIED ATRIAL FIBRILLATION 08/19/2018 RYANNE KWONG, ANTOLIN Etienne Ot I50.9 HEART FAILURE, UNSPECIFIED 08/19/2018 RYANNE KWONG, ANTOLIN Etienne Ot J44.9 CHRONIC OBSTRUCTIVE PULMONARY DISEASE, U 08/19/2018 RYANNE KWONG, ANTOLIN Etienne Ot R06.09 OTHER FORMS OF DYSPNEA 08/19/2018 KATHIE WRAY MD Ot E78.00 PURE HYPERCHOLESTEROLEMIA, UNSPECIFIED 08/19/2018 KATHIE WRAY MD Ot I11.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 08/19/2018 KATHIE WRAY MD Ot I25.10 ATHSCL HEART DISEASE OF [place] CORONARY 08/19/2018 KATHIE WRAY MD Ot I48.91 UNSPECIFIED ATRIAL FIBRILLATION 08/19/2018 KATHIE WRAY MD Ot I50.9 HEART FAILURE, UNSPECIFIED 08/19/2018 KATHIE WRAY MD, Ot J44.1 CHRONIC OBSTRUCTIVE PULMONARY DISEASE W 08/19/2018 KATHIE WRAY MD Ot R06.02 SHORTNESS OF BREATH 08/19/2018 KATHIE WRAY MD Ot R06.89 OTHER ABNORMALITIES OF BREATHING 08/19/2018 KATHIE WRAY MD, Ot R42 DIZZINESS AND GIDDINESS 08/19/2018 KATHIE WRAY MD Ot Z79.01 EXECUTOR OF ESTATE (CURRENT) USE OF ANTICOAGULANT 08/19/2018 KATHIE WRAY MD Ot Z79.51 EXECUTOR OF ESTATE (CURRENT) USE OF INHALED STERO 08/19/2018 KATHIE WRAY MD Ot Z87.891 PERSONAL HISTORY OF NICOTINE DEPENDENCE 08/19/2018 KATHIE WRAY MD Ot Z99.81 DEPENDENCE ON SUPPLEMENTAL OXYGEN 08/21/2018 KATHIE WRAY MD Ot E78.00 PURE HYPERCHOLESTEROLEMIA, UNSPECIFIED 08/21/2018 KATHIE WRAY MD Ot I11.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 08/21/2018 KATHIE WRAY MD Ot I25.10 ATHSCL HEART DISEASE OF [place] CORONARY 08/21/2018 NILS KWONG, KATHIE Sharp Ot I48.91 UNSPECIFIED ATRIAL FIBRILLATION 08/21/2018 KATHIE WRAY MD, Ot I50.9 HEART FAILURE, UNSPECIFIED 08/21/2018 KATHIE WRAY MD, Ot J44.1 CHRONIC OBSTRUCTIVE PULMONARY DISEASE W 08/21/2018 KATHIE WRAY MD, Ot R06.02 SHORTNESS OF BREATH 08/21/2018 KATHIE WRAY MD, Ot R06.89 OTHER ABNORMALITIES OF BREATHING 08/21/2018 KATHIE WRAY MD, Ot R42 DIZZINESS AND GIDDINESS 08/21/2018 KATHIE WRAY MD, Ot Z79.01 LONGTERM (CURRENT) USE OF ANTICOAGULANT 08/21/2018 KATHIE WRAY MD, Ot Z79.51 EXECUTOR OF ESTATE (CURRENT) USE OF INHALED STERO 08/21/2018 KATHIE WRAY MD, Ot Z87.891 PERSONAL HISTORY OF NICOTINE DEPENDENCE 08/21/2018 KATHIE WRAY MD, Ot Z99.81 DEPENDENCE ON SUPPLEMENTAL OXYGEN Procedures Code Description Performed By Performed On [...] Staphylococcus aureus (MRSA) screening culture NEG NRG DIGOXIN - 08/19/18 14:52 DIGOXIN 0.72 ng/mL 0.80-2.00 Complete blood count (CBC) with automated white blood cell (WBC) differential - 08/19/18 14:54 Blood leukocytes automated count (number/volume) 8.3 10*3/uL 4.3-11.0 Blood erythrocytes automated count (number/volume) 5.59 10*6/uL 4.35-5.85 Venous blood hemoglobin measurement (mass/volume) 17.3 g/dL 13.3-17.7 Blood hematocrit (volume fraction) 55 % 40-54 Automated erythrocyte mean corpuscular volume 99 [foz_us] 80-99 Automated erythrocyte mean corpuscular hemoglobin (mass per erythrocyte) 31 pg 25-34 Automated erythrocyte mean corpuscular hemoglobin concentration measurement (mass/volume) 31 g/dL 32-36 Automated erythrocyte distribution width ratio 14.5 % 10.0- 14.5 Automated blood platelet count (count/volume) 115 10*3/uL 130-400 Automated blood platelet mean volume measurement 10.6 [foz_us] 7.4-10.4 Automated blood neutrophils/100 leukocytes 68 % 42-75 Automated blood lymphocytes/100 leukocytes 21 % 12-44 Blood monocytes/100 leukocytes 8 % 0-12 Automated blood eosinophils/100 leukocytes 3 % 0-10 Automated blood basophils/100 leukocytes 0 % 0-10 Blood neutrophils automated count (number/volume) 5.6 10*3 1.8-7.8 Blood lymphocytes automated count (number/volume) 1.7 10*3 1.0-4.0 Blood monocytes automated count (number/volume) 0.7 10*3 0.0- 1.0 Automated eosinophil count 0.2 10*3/uL 0.0-0.3 Automated blood basophil count (count/volume) 0.0 10*3/uL 0.0-0.1 Comprehensive metabolic panel - 08/19/18 14:54 Serum or plasma sodium measurement (moles/volume) 145 mmol/L 135-145 Serum or plasma potassium measurement (moles/volume) 4.0 mmol/L 3.6-5.0 Serum or plasma chloride measurement (moles/volume) 94 mmol/L 98-107 Carbon dioxide 40 mmol/L 21-32 Serum or plasma anion gap determination (moles/volume) 11 mmol/L 5-14 Serum or plasma urea nitrogen measurement (mass/volume) 22 mg/dL 7-18 Serum or plasma creatinine measurement (mass/volume) 1.22 mg/dL 0.60-1.30 Serum or plasma urea nitrogen/creatinine mass ratio 18 NRG Serum or plasma creatinine measurement with calculation of estimated glomerular filtration rate 57 NRG Serum or plasma glucose measurement (mass/volume) 143 mg/dL 70-105 Serum or plasma calcium measurement (mass/volume) 10.0 mg/dL 8.5-10.1 Serum or plasma total bilirubin measurement (mass/volume) 1.2 mg/dL 0.1-1.0 Serum or plasma alkaline phosphatase measurement (enzymatic activity/volume) 75 U/L 40-136 Serum or plasma aspartate aminotransferase measurement (enzymatic activity/volume) 26 U/L 5-34 Serum or plasma alanine aminotransferase measurement (enzymatic activity/volume) 21 U/L 0-55 Serum or plasma protein measurement (mass/volume) 7.6 g/dL 6.4-8.2 Serum or plasma albumin measurement (mass/volume) 4.0 g/dL 3.2-4.5 CALCIUM CORRECTED 10.0 mg/dL 8.5-10.1 Magnesium - 08/19/18 14:54 Magnesium 2.0 mg/dL 1.8-2.4 Serum or plasma C reactive protein measurement (mass/volume) - 08/19/18 14:54 Serum or plasma C reactive protein measurement (mass/volume) 0.22 mg/dL 0.00-0.50 PT panel in platelet poor plasma by coagulation assay - 08/19/18 14:54 Prothrombin time (PT) in platelet poor plasma by coagulation assay 16.1 s 12.2-14.7 INR in platelet poor plasma or blood by coagulation assay 1.2 0.8-1.4 Activated partial thromboplastin time (aPTT) in platelet poor plasma bycoagulation assay - 08/19/18 14:54 Activated partial thromboplastin time (aPTT) in platelet poor plasma bycoagulation assay 43 s 24-35 Serum or plasma troponin i.cardiac measurement (mass/volume) - 08/19/18 14:54 Serum or plasma troponin i.cardiac measurement (mass/volume) 0.028 ng/mL <0.028 Myoglobin, serum - 08/19/18 14:54 Myoglobin, serum 153.3 ng/mL 10.0-92.0 Serum or plasma lithium measurement (moles/volume) - 08/19/18 14:54 BNP PT 467.1 pg/mL <100.0 Arterial blood gas measurement - 08/19/18 16:27 Blood pCO2 78 mm[Hg] 35-45 Blood pO2 65 mm[Hg] 79-93 Arterial blood bicarbonate measurement (moles/volume) 42 mmol/L 23-27 Arterial blood base excess by calculation 16.1 mmol/L -2.5-2.5 Arterial blood oxygen saturation measurement 92 % 94-100 * Inhaled oxygen flow rate 3.5 L NRG Arterial blood pH measurement with patient temperature correction 7.36 7.37-7.43 Arterial blood carbon dioxide, total measurement (moles/volume) 44.7 mmol/L 21.0-31.0 Body site RT RAD NRG Assessment of wrist artery patency prior to arterial puncture YES-POS NRG Setting of ventilation mode NO NRG Measurement of body temperature 99.1 NRG Encounters ACCT No. Visit Date/Time Discharge Status Pt. Type Provider Facility Loc./Unit Complaint [id number] 08/19/2018 14:34:00 08/19/2018 18:18:00 DIS Emergency KATHIE WRAY MD [facility] ER SOA [id number] 05/10/2018 10:33:00 05/10/2018 23:59:59 CLS Outpatient RYANNE KWONG, ANTOLIN Etienne [facility] CARD AF, CHF, COPD, CAD [id number] 03/08/2018 00:10:00 03/08/2018 23:59:59 CLS Preadmit CRISTINA MEADOWS MD [facility] POLYCYTHEMIA [id number] 12/07/2017 13:23:00 03/07/2018 00:01:00 DIS Outpatient CRISTINA MEADOWS MD [facility] POLYCYTHEMIA [id number] 11/09/2017 09:52:00 11/27/2017 00:01:00 DIS Outpatient CRISTINA MEADOWS MD [facility] [place] POLYCYTHEMIA [id number] 11/23/2017 18:29:00 11/23/2017 19:44:00 DIS Emergency MARIELA TERRY MD [facility] ER SOMETHING IN R EYE [id number] 10/10/2017 09:47:00 11/01/2017 00:01:00 DIS Outpatient CRISTINA MEADOWS MD [facility] [place] POLYCYTHEMIA [id number] 07/06/2017 09:50:00 07/12/2017 00:01:00 DIS Outpatient CRISTINA MEADOWS MD [facility] [place] POLYCYTHEMIA [id number] 03/16/2017 09:45:00 03/20/2017 00:01:00 DIS Outpatient CRISTINA MEADOWS MD [facility] POLYCYTHEMIA [id number] 01/17/2017 20:50:00 01/17/2017 23:03:00 DIS Emergency CRISTY ANAND [facility] ER L SHOULDER INJ [id number] 11/18/2016 09:43:00 11/27/2016 00:01:00 DIS Outpatient CRISTINA MEADOWS MD [facility] POLYCYTHEMIA [id number] 10/22/2016 08:50:00 10/22/2016 13:05:00 DIS Outpatient CRISTINA MEADOWS MD [facility] ENDO TEREAS OCCULT POS/BLOOD IN STOOL [id number] 10/20/2016 06:11:00 10/20/2016 09:55:00 DIS Outpatient CRISTINA MEADOWS MD [facility] PREOP OCCULT + BLOOD IN STOOL [id number] 08/25/2016 12:50:00 09/13/2016 00:01:00 DIS Outpatient CRISTINA MEADOWS MD [facility] POLYCYTHEMIA [id number] 06/09/2016 07:00:00 06/09/2016 15:38:00 DIS Outpatient ANTOLIN PEARL MD [facility] CATH ABN STRESS TEST [id number] 06/02/2016 07:22:00 06/02/2016 23:59:59 CLS Outpatient ANTOLIN PEARL MD [facility] CARD AF,CAD,CHF,HTN,MIXED HYPERLIPIDEMIA, I48.0 [id number] 05/24/2016 12:26:00 05/24/2016 23:59:59 CLS Outpatient ANTOLIN PEARL MD [facility] CARD AF,CAD [id number] 11/17/2015 08:15:00 11/17/2015 23:59:59 CLS Preadmit ANGELA ESTEBAN MD [facility] PUL COPD WITH ACUTE EXACERBATION [id number] 11/04/2015 08:00:00 11/16/2015 00:01:00 DIS Outpatient ANGELA ESTEBAN MD Via [facility] COPD WITH ACUTE EXACERBATION [id number] 08/27/2013 09:24:00 10/07/2013 00:01:00 DIS Outpatient CRISTINA MEADOWS MD [facility] LAB COUMEDIN THERAPY,COPD,A FIB, ELEVATED DIG LEVEL [id number] 08/27/2013 09:21:00 08/27/2013 23:59:59 CLS Outpatient CRISTINA MEADOWS MD [facility] LAB [id number] 07/24/2013 07:56:00 07/24/2013 23:59:59 CLS Outpatient ANTOLIN PEARL MD [facility] LAB AF,CAD,CHF,COPD,HTN,HYPERLIPIDEMIA [id number] 06/08/2013 13:03:00 07/05/2013 00:01:00 DIS Outpatient CRISTINA MEADOWS MD [facility] LAB COUMEDIN THERAPY,COPD,A FIB, ELEVATED DIG LEVEL [id number] 06/05/2013 11:19:00 06/05/2013 23:59:59 CLS Outpatient ANTOLIN PEARL MD [facility] RAD AFIB,CAD,CHF,COPD [id number] 05/04/2013 13:05:00 05/04/2013 23:59:59 CLS Outpatient ANTOLIN PEARL MD [facility] CARD AFIB,CAD,CHF,COPD [id number] 03/21/2013 13:37:00 04/02/2013 00:01:00 DIS Outpatient CRISTINA MEADOWS MD [facility] LAB COUMEDIN THERAPY,COPD,A FIB, ELEVATED DIG LEVEL [id number] 11/17/2012 09:55:00 02/15/2013 00:01:00 DIS Outpatient ANGELA ESTEBAN MD [facility] SDC EXACERBATION ASTHMA [id number] 01/03/2013 09:07:00 01/03/2013 23:59:59 CLS Outpatient ANTOLIN PEARL MD [facility] LAB CAD,HYPERLIPIDEMIA [id number] 12/01/2012 09:04:00 12/21/2012 00:01:00 DIS Outpatient CRISTINA MEADOWS MD [facility] LAB COUMEDIN THERAPY,COPD,A FIB, ELEVATED DIG LEVEL [id number] 11/03/2012 09:52:00 12/21/2012 00:01:00 DIS Outpatient ANGELA ESTEBAN MD [facility] ONC [id number] 06/20/2012 09:43:00 09/12/2012 00:01:00 DIS Outpatient CRISTINA MEADOWS MD [facility] LAB COUMEDIN THERAPY,COPD,A FIB, ELEVATED DIG LEVEL [id number] 07/12/2012 09:06:00 07/12/2012 23:59:59 CLS Outpatient KRISTIN FISH [facility] LAB CAD, HYPERLIPIDEMIA [id number] 11/22/2014 08:17:00 Document Registration [id number] 11/22/2014 08:17:00 Document Registration [id number] 11/22/2014 08:17:00 Document Registration [id number] 11/22/2014 08:17:00 Document Registration [id number] 11/22/2014 08:17:00 Document Registration [id number] 11/22/2014 08:17:00 Document Registration [id number] 11/22/2014 08:17:00 Document Registration [id number] 11/22/2014 08:17:00 Document Registration [id number] 11/22/2014 08:17:00 Document Registration [id number] 11/22/2014 08:17:00 Document Registration [id number] 11/22/2014 08:17:00 Document Registration [id number] 11/22/2014 08:17:00 Document Registration [id number] 01/09/2014 12:29:00 Document Registration [id number] 02/16/2013 00:00:00 Document Registration [id number] 12/22/2012 00:00:00 Document Registration [id number] 05/31/2012 13:47:00 Document Registration [id number] 01/12/2012 08:34:00 Document Registration [id number] 10/29/2011 08:40:00 Document Registration [id number] 09/21/2011 10:26:00 Document Registration [id number] 07/06/2011 09:33:00 Document Registration [id number] 06/22/2011 12:44:00 Document Registration [id number] 06/10/2011 10:00:00 Document Registration [id number] 05/11/2011 11:13:00 Document Registration [id number] 05/01/2011 07:53:00 Document Registration [id number] 04/27/2011 07:47:00 Document Registration [id number] 04/19/2011 13:10:00 Document Registration [id number] 03/18/2011 16:06:00 Document Registration [id number] 03/08/2011 14:18:00 Document Registration [id number] 03/08/2011 12:38:00 Document Registration [id number] 02/23/2011 10:10:00 Document Registration [id number] 02/23/2011 10:04:00 Document Registration [id number] 02/11/2011 11:53:00 Document Registration [id number] 01/04/2011 08:53:00 Document Registration [id number] 01/04/2011 08:46:00 Document Registration [id number] 10/05/2010 07:55:00 Document Registration [id number] 08/19/2010 09:05:00 Document Registration [id number] 03/20/2010 10:49:00 Document Registration [id number] 01/28/2010 10:30:00 Document Registration [id number] 10/20/2009 09:24:00 Document Registration [id number] 09/09/2009 21:36:00 Document Registration [id number] 09/06/2009 16:00:00 Document Registration [id number] 07/11/2009 13:20:00 Document Registration [id number] 06/21/2009 10:41:00 Document Registration [id number] 01/09/2014 10:03:43 ACT Document Registration
--- NOTE | 2018-08-24 11:51 | ED Respiratory ---
General Chief Complaint: Respiratory Problems Stated Complaint: SOA Source: patient Exam Limitations: no limitations History of Present Illness Date Seen by Provider: Aug 24, 2018 Time Seen by Provider: 11:47 Initial Comments To ER with private vehicle from Dr. Rolle's office where he presented for a follow-up appointment and was noted to be dyspneic, feeling poorly, oxygen saturation of 70% on baseline 2 L. Strong history of COPD, was here in the emergency room on 08/19/18 with sinus issues and hypercarbia. States that he's been on steroids in the sinuses are better but the breathing has worsened. He did smoke one pack of cigarettes per day from age 13 to age 68 but quit 10 years ago. He is very clear that he does not want to be intubated should that be necessary. He is agreeable to BiPAP mask. Timing/Duration: constant, getting worse Severity: moderate Associated Symptoms: shortness of breath, wheezing Allergies and Home Medications Allergies Coded Allergies: No Known Drug Allergies (Unverified , 10/20/16) Home Medications Albuterol Sulfate 2.5 Mg/3 Ml Vial.neb, 2.5 MG INH Q4H PRN for WHEEZING Use on a scheduled basis for the next 2 or 3 days, then as needed Prescribed by: KATHIE MCBRIDE on 08/19/18 3436 Ascorbate Calcium 500 Mg Tablet, 500 MG PO DAILY, (Reported) Digoxin 125 Mcg Tablet, 125 MCG PO DAILY, (Reported) Diltiazem HCl 120 Mg Cap.er.24h, 120 MG PO DAILY, (Reported) Fluticasone Propionate 16 Gm [place].susp, 1-2 SPRAYS NSEACH BID PRN for ALLERGIES, (Reported) Furosemide 40 Mg Tablet, 40 MG PO DAILY, (Reported) Metoprolol Succinate 100 Mg Tab.er.24h, 100 MG PO DAILY, (Reported) Multivitamin/Iron/Folic Acid 1 Each Tablet, 1 TAB PO DAILY, (Reported) Omalizumab 150 Mg Gaby, 150 MG SQ EVERY 2 WEEKS, (Reported) [place]-3 Fatty Acids/Fish Oil 1 Each Capsule, 2,400 MG PO DAILY, (Reported) TAKES 2 (1,200 MG) CAPSULES Oxymetazoline HCl 30 Ml [place], 1-2 SPRAYS NSEACH DAILY PRN for CONGESTION, (Reported) Prednisone 20 Mg Tab, 20 MG PO DAILY Take 3 tabs(60mg)daily,decrease by 1/2 tab(10mg)every other day. Prescribed by: KATHIE MCBRIDE on 08/19/18 095 Roflumilast 500 Mcg Tablet, 500 MCG PO DAILY, (Reported) Rosuvastatin Calcium 20 Mg Tablet, 20 MG PO DAILY, (Reported) Testosterone Cypionate 100 Mg/1 Ml Vial, 100 MG IM EVERY 2 WEEKS, (Reported) Umeclidinium Brm/Vilanterol Tr 1 Each Blst.w.dev, 1 PUFF IH DAILY, (Reported) Patient Home Medication List Home Medication List Reviewed: Yes Review of Systems Review of Systems Constitutional: see HPI; No fever EENTM: see HPI Respiratory: see HPI, dyspnea on exertion, short of breath Cardiovascular: no symptoms reported Genitourinary: no symptoms reported Musculoskeletal: no symptoms reported Skin: no symptoms reported Psychiatric/Neurological: No Symptoms Reported Hematologic/Lymphatic: No Symptoms Reported (Tachycardic) Past Ifxjncm-Bhqhaw-Jrttlr Hx Patient Social History Type Used: Cigarettes Former Smoker, Quit: Jun 10, 2007 2nd Hand Smoke Exposure: No Recent Hopitalizations: No Immunizations Up To Date Tetanus Booster (TDap): Unknown Date of Pneumonia Vaccine: Dec 08, 2015 Date of Influenza Vaccine: Dec 08, 2015 Seasonal Allergies Seasonal Allergies: Yes Past Medical History Surgeries: Yes (I&D, [employer] GANGRENE) Respiratory: Yes (2L O2 NC) COPD Currently Using CPAP: Yes Cardiac: Yes (CARDIOMYOPATHY WAS IN A-FIB JUNE 2009, pulmonary hypertension) Atrial Fibrillation, Cardiomyopathy, Coronary Artery Disease, High Cholesterol, Hypertension, Irregular Heartbeat, Valvular Heart Disease Neurological: No Reproductive Disorders: No Sexually Transmitted Disease: No HIV/AIDS: No Genitourinary: No Gastrointestinal: No Musculoskeletal: No Endocrine: No Loss of Vision: Bilateral Hearing Impairment: Denies Cancer: No Psychosocial: No Integumentary: No Blood Disorders: Yes (POLYCYTHEMIA) Adverse Reaction/Blood Tranf: No Physical Exam Vital Signs - First Documented 08/24/18 11:40 Temp 97.1 Pulse 89 Resp 20 B/P (MAP) 120/98 (105) Pulse Ox 95 O2 Delivery Nasal Cannula O2 Flow Rate 3.00 Capillary Refill : Height: 5'9.00" Weight: 170lbs. 4.0oz. 77.588587cd; 26.5 BMI Method:Stated General Appearance: WD/WN, no apparent distress Eyes: Bilateral Eye Normal Inspection, Bilateral Eye PERRL, Bilateral Eye EOMI HEENT: PERRL/EOMI, normal ENT inspection Respiratory: no respiratory distress, no accessory muscle use, decreased breath sounds (minimal air movement bilaterally, no wheezing is there is no air movement to cause wheezing. Sats are 87% on 3 L) Cardiovascular: no edema, irregularly irregular Gastrointestinal: normal bowel sounds, non tender, soft Neurologic/Psychiatric: alert, normal mood/affect, other (patient states "just send me to [facility], Im sick of this shit". ) Skin: normal color, warm/dry Progress/Results/Core Measures Suspected Sepsis SIRS Temperature: Pulse: Respiratory Rate: Laboratory Tests 08/24/18 11:50: White Blood Count 7.6 Blood Pressure / Mean: Laboratory Tests 08/24/18 11:50: Creatinine 1.28, Platelet Count 95L, Total Bilirubin 0.9 Results/Orders Lab Results Laboratory Tests Test 08/24/18 11:50 08/24/18 12:53 Range/Units White Blood Count 7.6 4.3-11.0 10^3/uL Red Blood Count 5.40 4.35-5.85 10^6/uL Hemoglobin 16.5 13.3-17.7 G/DL Hematocrit 54 40-54 % Mean Corpuscular Volume 100 H 80-99 FL Mean Corpuscular Hemoglobin 31 25-34 PG Mean Corpuscular Hemoglobin Concent 31 L 32-36 G/DL Red Cell Distribution Width 14.6 H 10.0-14.5 % Platelet Count 95 L 130-400 10^3/uL Mean Platelet Volume 11.3 H 7.4-10.4 FL Neutrophils (%) (Auto) 74 42-75 % Lymphocytes (%) (Auto) 17 12-44 % Monocytes (%) (Auto) 8 0-12 % Eosinophils (%) (Auto) 1 0-10 % Basophils (%) (Auto) 0 0-10 % Neutrophils # (Auto) 5.6 1.8-7.8 X 10^3 Lymphocytes # (Auto) 1.3 1.0-4.0 X 10^3 Monocytes # (Auto) 0.6 0.0-1.0 X 10^3 Eosinophils # (Auto) 0.1 0.0-0.3 10^3/uL Basophils # (Auto) 0.0 0.0-0.1 10^3/uL Neutrophils % (Manual) 68 % Lymphocytes % (Manual) 15 % Monocytes % (Manual) 12 % Eosinophils % (Manual) 5 % Basophils % (Manual) 0 % Sodium Level 145 135-145 MMOL/L Potassium Level 4.5 3.6-5.0 MMOL/L Chloride Level 95 L 98-107 MMOL/L Carbon Dioxide Level 42 H 21-32 MMOL/L Anion Gap 8 5-14 MMOL/L Blood Urea Nitrogen 28 H 7-18 MG/DL Creatinine 1.28 0.60-1.30 MG/DL Estimat Glomerular Filtration Rate 54 BUN/Creatinine Ratio 22 Glucose Level 100 70-105 MG/DL Calcium Level 9.4 8.5-10.1 MG/DL Corrected Calcium 9.6 8.5-10.1 MG/DL Total Bilirubin 0.9 0.1-1.0 MG/DL Aspartate Amino Transf (AST/SGOT) 35 H 5-34 U/L Alanine Aminotransferase (ALT/SGPT) 38 0-55 U/L Alkaline Phosphatase 68 40-136 U/L Troponin I 0.035 H <0.028 NG/ML B-Type Natriuretic Peptide 390.9 H <100.0 PG/ML Total Protein 6.8 6.4-8.2 GM/DL Albumin 3.7 3.2-4.5 GM/DL Smear Scan NO Blood Gas Puncture Site RRAD Blood Gas Patient Temperature 97.1 Arterial Blood pH 7.37 7.37-7.43 Arterial Blood Partial Pressure CO2 75 *H 35-45 MMHG Arterial Blood Partial Pressure O2 82 79-93 MMHG Arterial Blood HCO3 43 *H 23-27 MMOL/L Arterial Blood Total CO2 45.6 H 21.0-31.0 MMOL/L Arterial Blood Oxygen Saturation 97 94-100 % Arterial Blood Base Excess 16.9 H -2.5-2.5 MMOL/L Kwesi Test YES-POS Blood Gas Ventilator Setting NO Blood Gas Inspired Oxygen 40% My Orders Orders - LIZZ VIDAL APRN Cbc And Manual Diff (08/24/18 11:44) Comprehensive Metabolic Panel (08/24/18 11:44) Bipap (Bilevel) Set Up (08/24/18 11:44) Ed Iv/Invasive Line Start (08/24/18 11:44) BNP (08/24/18 11:44) Troponin I (08/24/18 11:44) Ekg Tracing (08/24/18 11:44) Chest 1 View, Ap/Pa Only (08/24/18 11:44) Albuterol/Ipra Inhalation Soln (Duoneb I (08/24/18 11:45) Svn Small Volume Nebulizer (08/24/18 11:44) Methylprednisolone Sod Succ (Solu-Medrol (08/24/18 12:00) Arterial Blood Gas (08/24/18 12:20) Medications Given in ED Current Medications Medications Dose Ordered Sig/Mayito Route Start Time Stop Time Status Last Admin Dose Admin Albuterol/ Ipratropium 3 ml ONCE ONCE INH 08/24/18 11:45 08/24/18 11:46 DC 08/24/18 12:01 3 ML Methylprednisolone Sodium Succinate 125 mg ONCE ONCE IVP 08/24/18 12:00 08/24/18 12:01 DC 08/24/18 12:18 125 MG Vital Signs/I&O 08/24/18 08/24/18 11:40 12:02 Temp 97.1 Pulse 89 80 Resp 20 17 B/P (MAP) 120/98 (105) Pulse Ox 95 98 O2 Delivery Nasal Cannula O2 Flow Rate 3.00 40.00 Capillary Refill : Departure Communication (Admissions) Time/Spoke to Admitting Phy: 13:[address] Rolle, we will admit the patient here to the medical floor. He is on the BiPAP currently told to 5 and 40% FiO2 with oxygen saturation of 97%. He does have a controlled rate atrial fibrillation. Blood pressure is 109/56. We'll consult Dr. Rangel. Time/Spoke to Consulting Phy: 13:[address] Rangel, he'll see the patient and would like Solu-Medrol 40 mg IV every 6 hours. Withhold antibiotics at this time NAME: COOPER MARTINEZ MED REC#: [id number] PT STATUS: REG ER : 1940 PHYSICIAN: LIZZ VIDAL APRN ADMIT DATE: 08/24/18/ER Draft Date of Exam:08/24/18 CHEST 1 VIEW, AP/PA ONLY INDICATION: Decreased oxygen saturation. TIME OF EXAM: 12:21 p.m. COMPARISON: Correlation is made with prior study from 08/19/2018. FINDINGS: The heart size is stable. Mild bibasilar densities appear similar to prior exam and may be chronic. Mid and upper lung ornelas are clear. There is no effusion or pneumothorax. IMPRESSION: Stable chest. No acute feature is seen. Dictated on workstation # [id number] Dict: 08/24/18 1234 Trans: 08/24/18 1237 [facility] [id number] Interpreted by: ADITYA MAHONEY MD Electronically signed by: Impression Primary Impression: Hypercapnic respiratory failure Qualified Codes: J96.22 - Acute and chronic respiratory failure with hypercapnia Disposition: ADMITTED INPATIENT Condition: Stable Admissions Decision to Admit Reason: Admit from ER (General) Decision to Admit/Date: Aug 24, 2018 Time/Decision to Admit Time: 11:51 Departure-Patient Inst. Referrals: CRISTINA ROLLE MD (PCP/Family) Primary Care Physician LIZZ VIDAL LACE CUTTER Aug 24, 2018 11:51
--- NOTE | 2018-08-24 11:52 | NUR ---
SOMEONE SENT LABS
--- NOTE | 2018-08-24 11:57 | NUR ---
RESP THERAPY APPLIED BIPAP
[2018-08-24] MEDS ORDERED: methylPREDNISolone 125 MG (Solu-MEDROL) VIAL IVP ONE (12:00)
[2018-08-24 12:03] LABS: BASOPHILS % (AUTO) 0 % (0-10); EOSINOPHILS # (AUTO) 0.1 10^3/uL (0.0-0.3); EOSINOPHILS % (AUTO) 1 % (0-10); HEMATOCRIT 54 % (40-54); HEMOGLOBIN 16.5 G/DL (13.3-17.7); LYMPHOCYTES # (AUTO) 1.3 X 10^3 (1.0-4.0); LYMPHOCYTES % (AUTO) 17 % (12-44); MEAN CORPUSCULAR HEMOGLOBIN 31 PG (25-34); MEAN CORPUSCULAR HGB CONC 31 G/DL (32-36); MEAN CORPUSCULAR VOLUME 100 FL (80-99); MEAN PLATELET VOLUME 11.3 FL (7.4-10.4); MONOCYTES # (AUTO) 0.6 X 10^3 (0.0-1.0); MONOCYTES % (AUTO) 8 % (0-12); NEUTROPHILS # (AUTO) 5.6 X 10^3 (1.8-7.8); NEUTROPHILS % (AUTO) 74 % (42-75); PLATELET COUNT 95 10^3/uL (130-400); RED CELL DISTRIBUTION WIDTH 14.6 % (10.0-14.5); WHITE BLOOD COUNT 7.6 10^3/uL (4.3-11.0)
--- NOTE | 2018-08-24 12:04 | NUR ---
EKG BY ME
--- NOTE | 2018-08-24 12:07 | NUR ---
TELE APPLIED SHOWS AF IB 82. PT HAS H/O SAME. FOUND BROKEN WIRE.
[2018-08-24 12:10] LABS: SMEAR SCAN COMMENT NO
[2018-08-24 12:25] LABS: ALBUMIN 3.7 GM/DL (3.2-4.5); BILIRUBIN,TOTAL 0.9 MG/DL (0.1-1.0); CALCIUM 9.4 MG/DL (8.5-10.1); CREATININE SERUM 1.28 MG/DL (0.60-1.30); POTASSIUM 4.5 MMOL/L (3.6-5.0); TOTAL PROTEIN 6.8 GM/DL (6.4-8.2)
[2018-08-24 12:33] LABS: BASOPHILS % (MANUAL) 0 %; EOSINOPHILS % (MANUAL) 5 %; LYMPHOCYTES % (MANUAL) 15 %; MONOCYTES % (MANUAL) 12 %; NEUTROPHILS % (MANUAL) 68 %
--- NOTE | 2018-08-24 12:38 | Diagnostic Imaging Report ---
INDICATION: Decreased oxygen saturation. TIME OF EXAM: 12:21 p.m. COMPARISON: Correlation is made with prior study from 08/19/2018. FINDINGS: The heart size is stable. Mild bibasilar densities appear similar to prior exam and may be chronic. Mid and upper lung ornelas are clear. There is no effusion or pneumothorax. IMPRESSION: Stable chest. No acute feature is seen. Dictated by: Dictated on workstation # [id number]
[2018-08-24 12:59] LABS: ABG BASE EXCESS 16.9 MMOL/L (-2.5-2.5); ABG OXYGEN SATURATION 97 % (94-100); ABG PH 7.37 (7.37-7.43); ABG PO2 82 MMHG (79-93); ABG TCO2 45.6 MMOL/L (21.0-31.0)
[2018-08-24 13:02] LABS: ABG PCO2 75 MMHG (35-45)
[2018-08-24 13:03] LABS: ALLENS TEST YES-POS; INSPIRED O2 40%; PATIENT TEMP 97.1; VENTILATOR NO
--- NOTE | 2018-08-24 13:20 | NUR ---
PT REMAINS HERE BY SELF ALERT GCS 15. PT DENIES CHEST AND ABD PAIN. PT RELATES DYSPNEA " EASIER TO BREATH". NO ACUTE SIGHNS OF DYSPNEA NOTED THOUGH RESP REMAIN SHALLOW NONLABORED. LUNGS NOW CTA DECREASED AERATION BILATERALLY. PT ON BIPAP 40 PERCENT O2. BP MACHINE IS 109/86 AUSC HR 76 IRREG AUSC RESP 20. RECHECK TEMP 98.1 P OX 99TELE SHOWS A FIB 74.
--- NOTE | 2018-08-24 13:40 | NUR ---
I CALLED PHARMACY . THEY KNOW PT AGE. THEY SAYS OK WITH THE LIDOCAINE AND OK FOR 1 SHOT.
--- NOTE | 2018-08-24 13:49 | NUR ---
SOMEONE ELSE WORKING ON ADMIT [facility] SUKHJINDER
--- NOTE | 2018-08-24 14:11 | NUR ---
PT NEEDS TO BE D/CD FROM ADMIT ROOM 426 THEN ROOM NEEDS CLEANED THEN THIS PT CAN GO TO ROOM 426.
--- NOTE | 2018-08-24 14:29 | NUR ---
PT REMAINS ALERT GCS 15 AND HERE BY SELF. PT RELATES " I STILL FEEL PRETTY GOOD. p T GIVEN H20. PT CALLED FAMILY EARLIER ON HIS CELL. PT WITH NO ACUTE SIGHNS OF DYSPNEA NOTED THOUGH RESP REMAIN SHALLOW NONLABORED. TELE SHOWS A FIB 80. PT STILL ON BIPAP 40 PERCENT O2.
[2018-08-24 14:31] VITALS: BP 124/82
--- NOTE | 2018-08-24 14:59 | NUR ---
I CALLED REPORT TO ADMIT NURSE CLEMENTE. SHE WILL CALL WHEN ADMIT ROOM READY FOR PT.
--- NOTE | 2018-08-24 16:27 | NUR ---
ANOTHER NURSE IS TAKING PT TO ADMIT ROOM NOW.
--- NOTE | 2018-08-24 16:32 | NUR ---
COOPER MARTINEZ admitted to room 426-1, with an admitting diagnosis of ACUTE ON CHRONIC RESPIRATORY FAILURE, on 08/24/18 from ED via BED/CART, accompanied by. COOPER MARTINEZ introduced to surroundings, call light, bed controls, phone, TV, temperature control, lights, meal times, smoking policy, visitor policy, side rail policy, bathrooms and showers. Patient Rights given to patient in the handbook. COOPER MARTINEZ verbalizes understanding that [facility] is not responsible for the loss or damage to any personal effects or valuables that are kept in the patients possession during their hospitalization.
[2018-08-24 16:39] VITALS: BP 123/92
[2018-08-24 17:09] VITALS: BP 123/92
[2018-08-24] MEDS ORDERED: RT-ALBUTEROL/IPRATROPIUM 3 ML (DUONEB) VIAL INH PRN (17:15)
[2018-08-24] MEDS ORDERED: CATHETER FLUSH 10 ML SYR IV PRN (17:15)
--- NOTE | 2018-08-24 17:25 | History & Physical-Hospitalist ---
History of Present Illness HPI/Chief Complaint Mr. Jones is an 78-year-old white male who reports roughly 10 day history of increased shortness of breath. This initially started with sinus congestion which progressed to hoarseness and this chest tightness with inability to take a deep breath due to a somewhat constricted feeling. He denied purulent sputum production but did have increase in cough. He has baseline chronic hypercapnic respiratory failure but is been quite well for the past several years due to conscious attempt and success at weight loss over 80 pounds from his high and regular exercise. He presented to the emergency room on the where his CO2 level was noted to be in the 80s with a PO2 of 65 and a pH of 7.36. He felt better after an hour-long breathing treatments and ultimately was discharged with chest x-ray revealing no evidence for pneumonia or heart failure and baseline mildly elevated BNP level CD range. He presented to my office reporting that if anything he felt worse today and felt lightheaded walking into the office at which time his O2 saturation was noted to be in the low 70s on 2 L per nasal cannula. With rest and increase to 3 L per nasal cannula level increased to 88 percent. Orders were written for direct admission to the intensive care units for BiPAP therapy and further evaluation but a bed was not available he was sent to the emergency room for dispensation were similar findings were noted no evidence for pneumonia but acute on chronic hypercapnic respiratory failure. 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 Is also been receiving Xolair injections every 2 weeks in addition to bronchodilator therapy. He had been discharged on prednisone but felt that it was contributing to him not feeling well so he discontinued this several days ago after 2 or 3 days of therapy only. Date Seen 08/24/18 Time Seen by a Provider: 17:30 Attending Physician Cristina Meadows MD PCP Cristina Meadows MD Referring Physician Date of Admission Aug 24, 2018 at 14:09 Home Medications & Allergies Home Medications Reviewed patient Home Medication Reconciliation performed by pharmacy medication reconciliations automobile technician and/or nursing. Patients Allergies have been reviewed. Allergies Allergies Coded Allergies No Known Drug Allergies (Unverified10/20/16) Past Daysxat-Zqwzdg-Onrhpu Hx Past Med/Social Hx: Reviewed and Corrections made Patient Social History Alcohol Use: Denies Use Recreational Drug Use: No Smoking Status: Former Smoker Former Smoker, Quit: Jun 10, 2007 Type Used: Cigarettes 2nd Hand Smoke Exposure: No Recent Foreign Travel: No Contact w/other who traveled: No Recent Hopitalizations: No Recent Infectious Disease Expo: No Immunizations Up To Date Tetanus Booster (TDap): Unknown Date of Pneumonia Vaccine: Dec 08, 2015 Date of Influenza Vaccine: Dec 08, 2015 Seasonal Allergies Seasonal Allergies: Yes Past Medical History Currently Using CPAP: Yes Cardiac: Atrial Fibrillation, Cardiomyopathy, Coronary Artery Disease, High Cholesterol, Hypertension, Irregular Heartbeat, Valvular Heart Disease Reproductive: No Sexually Transmitted Disease: No HIV/AIDS: No Loss of Vision: Bilateral Hearing Impairment: Denies History of Blood Disorders: Yes (POLYCYTHEMIA) Adverse Reaction to Blood Miller: No Review of Systems Constitutional: No chills, No diaphoresis, No dizziness, No fever, No malaise; weakness; No weight gain, No weight loss, No other EENTM: see HPI Respiratory: cough, dyspnea on exertion; No hemoptysis, No orthopnea; phlegm (Small amount of nonpurulent sputum reported), short of breath; No stridor; wheezing; No other Cardiovascular: see HPI; No chest pain, No edema, No Hx of Intervention, No palpitations, No syncope, No vascular heart diseas, No other Physical Exam Physical Exam Vital Signs Vital Signs - First Documented 08/24/18 08/24/18 11:40 17:09 Temp 97.1 Pulse 89 Resp 20 B/P (MAP) 120/98 (105) Pulse Ox 95 O2 Delivery Nasal Cannula O2 Flow Rate 3.00 FiO2 40 Capillary Refill : Less Than 3 Seconds Height, Weight, BMI Height: 5'9.00" Weight: 176lbs. 0.0oz. 79.246906zn; 26.0 BMI Method:Stated General Appearance: Anxious, Chronically ill, Moderate Distress HEENT: PERRL/EOMI, Normal ENT Inspection, Pharynx Normal Neck: Full Range of Motion, Normal Inspection, Non Tender Respiratory: Chest Non Tender, Accessory Muscle Use, Other (With regular respirations no wheezing noted there are significant diminishment of respirations posteriorly without dullness to percussion no focal consolidative findings are noted.) Cardiovascular: No Edema, No Gallop, No Murmur, Normal Peripheral Pulses, Irregularly Irregular (Pulse 88) Gastrointestinal: Normal Bowel Sounds, No Organomegaly, No Pulsatile Mass, Non Tender, Soft Extremity: Normal Capillary Refill, Normal Inspection, Normal Range of Motion, Non Tender, No Calf Tenderness, No Pedal Edema Neurologic/Psychiatric: Alert, Oriented x3, No Motor/Sensory Deficits Skin: Cyanosis (Noted of upper and lower extremities no acral cyanosis appreciated.) Results Results/Procedures Labs Laboratory Tests 08/24/18 11:50 Patient resulted labs reviewed. Assessment/Plan Admission Diagnosis 1. 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 BiPAP is been initiated with broncho-dilator therapy anti-inflammatory therapy with pulmonary consultation to follow. 2. Chronic persistent atrial fibrillation rate controlled considering number 1 we'll hold beta speedy therapy giving a little increased dose and diltiazem 240 mg every morning daily and monitor. We will continue anticoagulant therapy Eliquis 5 milligrams twice a day which will suffice for DVT prophylaxis. 3. Hyperlipidemia continue Crestor 20 mg at at bedtime. Admission Status: Inpatient Order (span 2 midnights) Reason for Inpatient Admission: See admission diagnosis Critical Care Critically Ill Patient Clinical Quality Measures DVT/VTE Risk/Contraindication: Risk Factor Score Per Nursin RFS Level Per Nursing on Admit: 4+=Very High CRISTINA MEADOWS MD Aug 24, 2018 17:25
[2018-08-24] MEDS ORDERED: RT-ALBUTEROL/IPRATROPIUM 3 ML (DUONEB) VIAL INH SCH (18:00)
[2018-08-24] MEDS: methylPREDNISolone 40 MG/ML (Solu-MEDROL) VIAL IV SCH (18:40)
[2018-08-24 19:06] VITALS: BP 123/92
[2018-08-24 19:57] VITALS: BP 126/89
[2018-08-24 20:00] VITALS: BP 126/89
[2018-08-24] MEDS: RT-ALBUTEROL/IPRATROPIUM 3 ML (DUONEB) VIAL INH SCH ×2 (20:39→22:09)
[2018-08-24] MEDS ORDERED: ATORVASTATIN 40 MG (LIPITOR) TABLET PO SCH (21:00)
[2018-08-24] MEDS: APIXABAN 5 MG (ELIQUIS) TABLET PO SCH (22:08)
[2018-08-24] MEDS: ROSUVASTATIN 20 MG (CRESTOR) TABLET PO SCH (22:08)
[2018-08-24] MEDS: CATHETER FLUSH 10 ML SYR IV SCH (22:09)
[2018-08-25 00:05] VITALS: BP 130/83
[2018-08-25] MEDS: methylPREDNISolone 40 MG/ML (Solu-MEDROL) VIAL IV SCH ×4 (00:30→17:52)
[2018-08-25] MEDS: RT-ALBUTEROL/IPRATROPIUM 3 ML (DUONEB) VIAL INH SCH ×4 (01:43→20:39)
[2018-08-25 03:43] VITALS: BP 123/86
[2018-08-25] MEDS: CATHETER FLUSH 10 ML SYR IV SCH ×3 (06:25→23:08)
[2018-08-25 08:00] VITALS: BP 124/88
--- NOTE | 2018-08-25 09:30 | NUR ---
Pt is [employer] and declines sacraments. [place] Head offered prayer and blessing.
[2018-08-25] MEDS ORDERED: MONT10TA24 PO ×2 (09:32)
[2018-08-25] MEDS ORDERED: AMOX1TAB12 PO (09:32)
[2018-08-25] MEDS ORDERED: APIX5TAB PO (09:32)
[2018-08-25] MEDS ORDERED: MELA10TA PO (09:34)
[2018-08-25] MEDS ORDERED: ALB0.5V INH (09:35)
[2018-08-25] MEDS ORDERED: PRED5TAB PO (09:40)
--- NOTE | 2018-08-25 09:47 | NUR ---
SPOKE WITH PATIENT ABOUT HIS MEDS ALONG WITH LOOKING AT HIS EXTERNAL MED HISTORY ( I ALSO CALLED [facility] TO VERIFY DATES) LASIX 40 MG IS WRITTEN 1 T PO BID, BUT PATIENT INDICATES HE ONLY TAKES IT ON , TUE, & Tue06-02-2018 DIGOXIN #90/90DS 06-02-2018 ROSUVASTATIN #90/90DS 06-02-2018 CARTIA #90/90DS (THESE DID NOT SHOW UP ON THE EXTERNAL MED HISTORY BUT AFTER CALLING [facility] THEY VERIFIED THESE WERE PICKED UP) OTC MEDICATIONS: MELATONIN FISH OIL VITAMIN C AFRIN MULTIVITAMIN
[2018-08-25] MEDS: APIXABAN 5 MG (ELIQUIS) TABLET PO SCH ×2 (09:51→23:08)
[2018-08-25] MEDS: DIGOXIN 0.125 MG (LANOXIN) TAB PO SCH (09:51)
[2018-08-25] MEDS: DILTIAZEM 240 MG (CARDIZEM CD) CAP PO SCH (09:51)
--- NOTE | 2018-08-25 10:22 | Pulmonary Consultation ---
History of Present Illness History of Present Illness Date of Consultation 08/25/18 10:16 Date of Admission Allergies and Home Medications Allergies Coded Allergies: No Known Drug Allergies (Unverified , 10/20/16) Home Medications Albuterol Sulfate 2.5 Mg/0.5 Ml Vial.neb, 2.5 MG INH Q4H PRN for SHORTNESS OF BREATH, (Reported) Amoxicillin/Potassium Clav 1 Each Tablet, 1 TAB PO BID, (Reported) FILLED 10 DAY SUPPLY ON 08-17-2018 Apixaban 5 Mg Tablet, 5 MG PO BID, (Reported) Ascorbate Calcium 500 Mg Tablet, 500 MG PO DAILY, (Reported) Digoxin 125 Mcg Tablet, 125 MCG PO DAILY, (Reported) Diltiazem HCl 120 Mg Cap.er.24h, 120 MG PO DAILY, (Reported) Fluticasone Propionate 16 Gm [place].susp, 1-2 SPRAYS NSEACH BID PRN for ALLERGIES, (Reported) Furosemide 40 Mg Tablet, 40 MG PO MoTuWe, (Reported) Melatonin 10 Mg Tab.mphase, 30 MG PO HS, (Reported) Metoprolol Succinate 100 Mg Tab.er.24h, 100 MG PO DAILY, (Reported) Montelukast Sodium 10 Mg Tablet, 10 MG PO DAILY, (Reported) Multivitamin/Iron/Folic Acid 1 Each Tablet, 1 TAB PO DAILY, (Reported) [place]-3 Fatty Acids/Fish Oil 1 Each Capsule, 2,400 MG PO DAILY, (Reported) TAKES 2 (1,200 MG) CAPSULES Oxymetazoline HCl 30 Ml [place], 1-2 SPRAYS NSEACH DAILY PRN for CONGESTION, (Reported) Prednisone 5 Mg Tablet, 5 MG PO UD, (Reported) TAKE 12 TABLETS BY MOUTH ONCE DAILY DECREASING BY 2 TABLETS EVERY OTHER DAY Roflumilast 500 Mcg Tablet, 500 MCG PO DAILY, (Reported) Rosuvastatin Calcium 20 Mg Tablet, 20 MG PO DAILY, (Reported) Umeclidinium Brm/Vilanterol Tr 1 Each Blst.w.dev, 1 PUFF IH DAILY, (Reported) Past Ohhgsyj-Ztgbgt-Cbwyqj Hx Past Med/Social Hx: Reviewed and Corrections made Patient Social History Alcohol Use: Denies Use Recreational Drug Use: No Smoking Status: Former Smoker Type Used: Cigarettes Former Smoker, Quit: Jun 10, 2007 2nd Hand Smoke Exposure: No Recent Foreign Travel: No Contact w/Someone Who Travel: No Recent Infectious Disease Expo: No Recent Hopitalizations: No Immunizations Up To Date Tetanus Booster (TDap): Unknown Date of Pneumonia Vaccine: Dec 08, 2015 Date of Influenza Vaccine: Dec 08, 2015 Seasonal Allergies Seasonal Allergies: Yes Past Medical History Surgeries: Yes (I&D, [employer] GANGRENE) Respiratory: Yes (2L O2 [place]) COPD Currently Using CPAP: Yes Cardiac: Yes (CARDIOMYOPATHY WAS IN A-FIB JUNE 2009, pulmonary hypertension) Atrial Fibrillation, Cardiomyopathy, Coronary Artery Disease, High Cholesterol, Hypertension, Irregular Heartbeat, Valvular Heart Disease Neurological: No Reproductive Disorders: No Sexually Transmitted Disease: No HIV/AIDS: No Genitourinary: No Gastrointestinal: No Musculoskeletal: No Endocrine: No Loss of Vision: Bilateral Hearing Impairment: Denies Cancer: No Psychosocial: No Integumentary: No Blood Disorders: Yes (POLYCYTHEMIA) Adverse Reaction/Blood Tranf: No Sepsis Event Evaluation Height, Weight, BMI Height: 5'6.00" Weight: 178lbs. 9.0oz. [id number]; 26.0 BMI Method:Stated Exam Exam Vital Signs Date Time Temp Pulse Resp B/P (MAP) Pulse Ox O2 Delivery O2 Flow Rate FiO2 08/25/18 09:24 97 Nasal Cannula 4.00 08/25/18 03:43 97.7 74 19 123/86 (98) 97 NIV Bilevel 40.00 08/25/18 01:43 64 22 94 30.00 08/25/18 00:05 96.9 84 20 130/83 (99) 97 NIV Bilevel 40.00 08/24/18 22:10 103 27 98 40.00 08/24/18 20:30 97 NIV Bilevel 40.00 08/24/18 20:00 96.4 73 22 126/89 (101) 99 NIV Bilevel 40.00 08/24/18 19:57 96.4 73 22 126/89 (101) 99 NIV Bilevel 40.00 08/24/18 19:06 96.6 72 20 123/92 98 NIV Bilevel 08/24/18 17:19 NIV Bilevel 40.00 08/24/18 17:09 72 90 40 08/24/18 16:39 96.6 72 20 123/92 (102) 98 NIV Bilevel 40.00 08/24/18 16:27 98.6 60 12 0/0 (0) 95 08/24/18 14:31 98.5 80 20 124/82 (96) 97 NIV CPAP 40.00 08/24/18 12:02 80 17 98 40.00 08/24/18 11:40 97.1 89 20 120/98 (105) 95 Nasal Cannula 3.00 I & O 08/25/18 07:00 Intake Total 1380 ml Balance 1380 ml Height & Weight Height: 5'6.00" Weight: 178lbs. 9.0oz. [id number]; 26.0 BMI Method:Stated General Appearance: Anxious, Chronically ill, Mild Distress HEENT: PERRL/EOMI, Normal ENT Inspection, Pharynx Normal Neck: Full Range of Motion, Normal Inspection, Non Tender Respiratory: Chest Non Tender, Accessory Muscle Use, Other (With regular respirations no wheezing noted there are significant diminishment of respirations posteriorly without dullness to percussion no focal consolidative findings are noted.) Cardiovascular: No Edema, No Gallop, No Murmur, Normal Peripheral Pulses, Irregularly Irregular (Pulse 88) Capillary Refill: Less Than 3 Seconds Gastrointestinal: normal bowel sounds, non tender, soft Extremity: Normal Capillary Refill, Normal Inspection, Normal Range of Motion, Non Tender, No Calf Tenderness, No Pedal Edema Neurologic/Psychiatric: Alert, Oriented x3, No Motor/Sensory Deficits Skin: Cyanosis (Noted of upper and lower extremities no acral cyanosis appreciated.) Results Lab Laboratory Tests 08/24/18 11:50 Assessment/Plan Assessment/Plan Acute on chronic respiratory failure -Vent to mask QHS and PRN -Pt improved with positive ventilation -Pt would benefit from home vent to mask -PT is at risk of persistent continued respiratory decline and multiple hospitalizations. - ABG C02 is 75 COPDAE -Solumedrol, SVNs - Add advair allergic rhinitis -Add Claritin and Singulair Afib -Pt is on DEQUAN Briggs DO Aug 25, 2018 10:22
[2018-08-25 12:00] VITALS: BP 126/86
[2018-08-25 16:00] VITALS: BP 124/78
[2018-08-25 20:00] VITALS: BP 132/94
[2018-08-25] MEDS: MELATONIN 3 MG TABLET PO SCH (23:08)
[2018-08-25] MEDS: ROSUVASTATIN 20 MG (CRESTOR) TABLET PO SCH (23:08)
[2018-08-26] VITALS (7 sets, daily range): BP systolic 108–142; BP diastolic 60–89
[2018-08-26] MEDS: methylPREDNISolone 40 MG/ML (Solu-MEDROL) VIAL IV SCH ×2 (00:27→06:36)
[2018-08-26] MEDS: RT-ALBUTEROL/IPRATROPIUM 3 ML (DUONEB) VIAL INH SCH ×4 (01:26→19:39)
[2018-08-26] MEDS: CATHETER FLUSH 10 ML SYR IV SCH ×3 (06:37→20:44)
[2018-08-26] MEDS: DILTIAZEM 240 MG (CARDIZEM CD) CAP PO SCH (09:18)
[2018-08-26] MEDS: APIXABAN 5 MG (ELIQUIS) TABLET PO SCH ×2 (09:18→20:44)
[2018-08-26] MEDS: DIGOXIN 0.125 MG (LANOXIN) TAB PO SCH (09:18)
--- NOTE | 2018-08-26 10:47 | NUR ---
DR MEADOWS IS ON FLOOR -- ADVISED HIM OF THE PT PULLING OUT SL AND REFUSING TO HAVE ANOTHER SL PUT IN -- DR MEADOWS VOCIED HER WOULD CHANGE IV MEDS TO PO
--- NOTE | 2018-08-26 11:28 | Progress Note-Hospitalist ---
Subjective HPI/CC On Admission Date Seen by Provider: Aug 26, 2018 Time Seen by Provider: 11:24 Mr. Jones is an 78-year-old white male who reports roughly 10 day history of increased shortness of breath. This initially started with sinus congestion which progressed to hoarseness and this chest tightness with inability to take a deep breath due to a somewhat constricted feeling. He denied purulent sputum production but did have increase in cough. He has baseline chronic hypercapnic respiratory failure but is been quite well for the past several years due to conscious attempt and success at weight loss over 80 pounds from his high and regular exercise. He presented to the emergency room on the where his CO2 level was noted to be in the 80s with a PO2 of 65 and a pH of 7.36. He felt better after an hour-long breathing treatments and ultimately was discharged with chest x-ray revealing no evidence for pneumonia or heart failure and bas salvatore mildly elevated BNP level CD range. He presented to my office reporting that if anything he felt worse today and felt lightheaded walking into the office at which time his O2 saturation was noted to be in the low 70s on 2 L per nasal cannula. With rest and increase to 3 L per nasal cannula level increased to 88 percent. Orders were written for direct admission to the intensive care units for BiPAP therapy and further evaluation but a bed was not available he was sent to the emergency room for dispensation were similar findings were noted no evidence for pneumonia but acute on chronic hypercapnic respiratory failure. 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 Is also been receiving Xolair injections every 2 weeks in addition to bronchodilator therapy. He had been discharged on prednisone but felt that it was contributing to him not feeling well so he discontinued this several days ago after 2 or 3 days of therapy only. Subjective/Events-last exam patient still more short of breath at baseline but significantly better than yesterday. He is back to 2 L of O2 at rest with saturations above 90 percent he's been able to walk some short distances and maintain his oxygen level although he does feel anxious man has tripped his heart rate monitor which is set at 120 with ambulation only. He has not noted any resting tachycardia. Cou gh is still nonproductive without night sweats chills or fever. Objective Exam Vital Signs Vital Signs Date Time Temp Pulse Resp B/P (MAP) Pulse Ox O2 Delivery O2 Flow Rate FiO2 08/26/18 08:01 94 Nasal Cannula 2.00 08/26/18 08:00 97.0 110 22 111/78 (89) 08/24/18 17:09 40 Capillary Refill : Less Than 3 Seconds General Appearance: Anxious, Chronically ill, Mild Distress HEENT: PERRL/EOMI, Normal ENT Inspection, Pharynx Normal Neck: Full Range of Motion, Normal Inspection, Non Tender Respiratory: Chest Non Tender, Accessory Muscle Use, Other (patient air movement improved today no wheezing still has loose sounding nonproductive cough.) Cardiovascular: No Edema, No Gallop, No Murmur, Normal Peripheral Pulses, Irregularly Irregular (Pulse 88) Gastrointestinal: Normal Bowel Sounds, No Organomegaly, No Pulsatile Mass, Non Tender, Soft Extremity: Normal Capillary Refill, Normal Inspection, Normal Range of Motion, Non Tender, No Calf Tenderness, No Pedal Edema Neurologic/Psychiatric: Alert, Oriented x3, No Motor/Sensory Deficits Skin: Cyanosis (Noted of upper and lower extremities no acral cyanosis appreciated.) Results/Procedures Lab Patient resulted labs reviewed. Assessment/Plan Assessment and Plan Assess & Plan/Chief Complaint 1. 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 BiPAP is been initiated with broncho-dilator therapy anti-inflammatory therapy with pulmonary consultation to follow. 2. Chronic persistent atrial fibrillation rate controlled considering number 1 we'll hold beta speedy therapy giving a little increased dose and diltiazem 240 mg every morning daily and monitor. We will continue anticoagulant therapy Eliquis 5 milligrams twice a day which will suffice for DVT prophylaxis. heart rate up with activity will resume beta speedy therapy at half his usual home dose. 3. Hyperlipidemia continue Crestor 20 mg at at bedtime. 4. Patient is extremely difficult peripheral access will leave IV out considering improvement and switch to oral prednisone Critical Care Critically Ill Patient Clinical Quality Measures DVT/VTE Risk/Contraindication: Risk Factor Score Per Nursin RFS Level Per Nursing on Admit: 4+=Very High CRISTINA MEADOWS MD Aug 26, 2018 11:28
[2018-08-26] MEDS ORDERED: meTOproloL SUCCINATE 50 MG (TOPROL XL) TAB PO SCH (11:30)
[2018-08-26] MEDS ORDERED: predniSONE 20 MG TAB PO ONE (11:30)
[2018-08-26] MEDS: ROSUVASTATIN 20 MG (CRESTOR) TABLET PO SCH (20:44)
[2018-08-26] MEDS: MELATONIN 3 MG TABLET PO SCH (20:44)
[2018-08-27] MEDS: RT-ALBUTEROL/IPRATROPIUM 3 ML (DUONEB) VIAL INH SCH ×3 (02:16→07:44)
[2018-08-27 03:15] VITALS: BP 107/68
[2018-08-27] MEDS: CATHETER FLUSH 10 ML SYR IV SCH (05:10)
--- NOTE | 2018-08-27 06:17 | Pulmonary Progress Note ---
Sepsis Event Evaluation Height, Weight, BMI Height: 5'6.00" Weight: 180lbs. 2.0oz. 81.602567no; 26.0 BMI Method:Stated Exam Exam Vital Signs Date Time Temp Pulse Resp B/P (MAP) Pulse Ox O2 Delivery O2 Flow Rate FiO2 08/27/18 03:15 97.4 74 18 107/68 (81) 98 Nasal Cannula 3.00 08/27/18 02:22 3.00 08/26/18 23:46 97.0 86 20 124/76 (92) 96 Nasal Cannula 3.00 08/26/18 20:49 90 20 Nasal Cannula 3.00 08/26/18 20:01 97.8 122 20 142/89 (106) 93 Nasal Cannula 4.00 08/26/18 20:00 Nasal Cannula 3.00 08/26/18 19:39 87 Nasal Cannula 2.00 08/26/18 16:00 97.8 65 20 122/75 (91) 95 Nasal Cannula 2.00 08/26/18 14:52 95 Nasal Cannula 2.00 08/26/18 12:00 97.4 88 22 108/60 (76) 95 Nasal Cannula 4.00 08/26/18 08:01 94 Nasal Cannula 2.00 08/26/18 08:00 95 Nasal Cannula 4.00 08/26/18 08:00 97.0 110 22 111/78 (89) 95 Nasal Cannula 4.00 I & O 08/27/18 07:00 Intake Total 2710 ml Balance 2710 ml Height & Weight Height: 5'6.00" Weight: 180lbs. 2.0oz. 81.396033qu; 26.0 BMI Method:Stated General Appearance: Anxious, Chronically ill, Mild Distress HEENT: PERRL/EOMI, Normal ENT Inspection, Pharynx Normal Neck: Full Range of Motion, Normal Inspection, Non Tender Respiratory: Chest Non Tender, Accessory Muscle Use, Other (patient air movem ent improved today no wheezing still has loose sounding nonproductive cough.) Cardiovascular: No Edema, No Gallop, No Murmur, Normal Peripheral Pulses, Irregularly Irregular (Pulse 88) Capillary Refill: Less Than 3 Seconds Gastrointestinal: normal bowel sounds, non tender, soft Extremity: Normal Capillary Refill, Normal Inspection, Normal Range of Motion, Non Tender, No Calf Tenderness, No Pedal Edema Neurologic/Psychiatric: Alert, Oriented x3, No Motor/Sensory Deficits Skin: Cyanosis (Noted of upper and lower extremities no acral cyanosis appreciated.) Assessment/Plan Assessment/Plan Acute on chronic respiratory failure -Titrate oxygen -Vent to mask QHS and PRN -Pt improved with positive ventilation -Pt would benefit from home vent to mask -PT is at risk of persistent continued respiratory decline and multiple hospitalizations. - ABG C02 is 75 COPDAE -Solumedrol, SVNs - Add advair allergic rhinitis -Add Claritin and Singulair Afib -Pt is on DEQUAN Briggs DO Aug 27, 2018 06:17
[2018-08-27] MEDS ORDERED: predniSONE 20 MG TAB PO SCH (07:00)
[2018-08-27 08:00] VITALS: BP 144/91
[2018-08-27] MEDS ORDERED: meTOproloL SUCCINATE 50 MG (TOPROL XL) TAB PO SCH (09:00)
[2018-08-27] MEDS: APIXABAN 5 MG (ELIQUIS) TABLET PO SCH (09:10)
[2018-08-27] MEDS: DIGOXIN 0.125 MG (LANOXIN) TAB PO SCH (09:10)
[2018-08-27] MEDS: DILTIAZEM 240 MG (CARDIZEM CD) CAP PO SCH (09:10)
[2018-08-27] MEDS ORDERED: PRD20T PO (10:11)
--- NOTE | 2018-08-27 10:18 | Discharge Summary-Hospitalist ---
Diagnosis/Chief Complaint Date of Admission Aug 24, 2018 at 14:09 Date of Discharge Discharge Date: Aug 27, 2018 Admission Diagnosis 1. 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 BiPAP is been initiated with broncho-dilator therapy anti-inflammatory therapy with pulmonary consultation to follow. 2. Chronic persistent atrial fibrillation rate controlled considering number 1 we'll hold beta speedy therapy giving a little increased dose and diltiazem 240 mg every morning daily and monitor. We will continue anticoagulant therapy Eliquis 5 milligrams twice a day which will suffice for DVT prophylaxis. 3. Hyperlipidemia continue Crestor 20 mg at at bedtime. Discharge Summary Discharge Physical Exam Allergies: Coded Allergies: No Known Drug Allergies (Unverified , 10/20/16) Vitals & I&Os Vital Signs Date Time Temp Pulse Resp B/P (MAP) Pulse Ox O2 Delivery O2 Flow Rate FiO2 08/27/18 08:00 Nasal Cannula 3.00 08/27/18 08:00 97.4 83 20 144/91 (108) 98 08/24/18 17:09 40 General Appearance: No Apparent Distress Respiratory: Chest Non Tender, Lungs Clear, No Accessory Muscle Use, No Respiratory Distress, Other (breath sounds diminished posteriorly without wheezing anterior chest is clear this patient's baseline examination.) Cardiovascular: No Edema, No Gallop, No JVD, No Murmur, Normal Peripheral Pulses, Irregularly Irregular Hospital Course patient was admitted with hypoxia and dyspnea with a history of chronic hypercapnic respiratory failure. CO2 level was in the 70s little higher than baseline with a pH of 7.36 and an O2 in the 70s or 80s on 3 L. He presented to the office in just walking in his saturations did drop down to the low 70s with slow recovery. He had previous viral sounding symptoms and a sensation that he could not draw a deep breath which likely cause some and neck reducing his effective respiratory effort. He he had no evidence for bacterial infection and responded to bronchodilator and anti-inflammatory therapy in the form of IV steroids. He was converted to by mouth steroids the day before his discharge was able to ambulate and if he didn't talk could maintain saturations greater than 90 percent on 3 L with talking he did drop down into the mid 80 range. He is being discharged on home medications minus the recently started antibiotic that he been given an urgent care with the addition of prednisone 40 mg 3 days 20 mg 3 days then off. He is to call my office on Tuesday and I will see him the following Tuesday or of this coming week. Labs (last 24 hrs) Patient resulted labs reviewed. Discussion & Recommendations Discharge Planning: <30 minutes discharge planning Discharge Home Medications: Active Scripts Active Prednisone 20 Mg Tab 40 Mg PO DAILY 6 Days 40mg with breakfast for 3 days then 20mg for 3 days then off. Reported Prednisone 5 Mg Tablet 5 Mg PO UD TAKE 12 TABLETS BY MOUTH ONCE DAILY DECREASING BY 2 TABLETS EVERY OTHER DAY Albuterol Sulfate 2.5 Mg/0.5 Ml Vial.neb 2.5 Mg INH Q4H PRN Melatonin 10 Mg Tab.mphase 30 Mg PO HS Eliquis (Apixaban) 5 Mg Tablet 5 Mg PO BID Montelukast Sodium 10 Mg Tablet 10 Mg PO DAILY Centrum Complete Multivit Tab (Multivitamin/Iron/Folic Acid) 1 Each Tablet 1 Tab PO DAILY Metoprolol Succinate 100 Mg Tab.er.24h 100 Mg PO DAILY Furosemide 40 Mg Tablet 40 Mg PO MOTUWE Digoxin 125 Mcg Tablet 125 Mcg PO DAILY Cartia Xt (Diltiazem HCl) 120 Mg Cap.er.24h 120 Mg PO DAILY Anoro Ellipta 62.5-25 Mcg INH (Umeclidinium Brm/Vilanterol Tr) 1 Each Blst.w.dev 1 Puff IH DAILY Vitamin C (Ascorbate Calcium) 500 Mg Tablet 500 Mg PO DAILY Afrin (Oxymetazoline HCl) 30 Ml [place] 1-2 Sprays NSEACH DAILY PRN Fluticasone Propionate 16 Gm [place].susp 1-2 Sprays NSEACH BID PRN Daliresp (Roflumilast) 500 Mcg Tablet 500 Mcg PO DAILY Fish Oil 1,200 mg Softgel ([place]-3 Fatty Acids/Fish Oil) 1 Each Capsule 2,400 Mg PO DAILY TAKES 2 (1,200 MG) CAPSULES Rosuvastatin Calcium 20 Mg Tablet 20 Mg PO DAILY Instructions to patient/family Please see electronic discharge instructions given to patient. Clinical Quality Measures DVT/VTE Risk/Contraindication: Risk Factor Score Per Nursin RFS Level Per Nursing on Admit: 4+=Very High Copy Copies To 1: CRISTINA MEADOWS MD, MARK D MD Aug 27, 2018 10:18
[2018-08-27 10:47] VITALS: BP 144/91
== END 2018-08-27 11:25 | disposition home or self-care (01) | DRG 189 ==
LOC: EDUNIT# 11:40 → ER 11:41 → 4TH 14:09 → UNDOADMIN 14:09
PROVIDERS: ADMIT Internal Medicine; ATTEND Internal Medicine
DX: J96.22 Acute and chronic respiratory failure with hypercapnia (principal); J44.1 Chronic obstructive pulmonary disease with (acute) exacerbation; J44.0 Chronic obstructive pulmonary disease with (acute) lower respiratory infection; J20.8 Acute bronchitis due to other specified organisms; J30.9 Allergic rhinitis, unspecified; I42.9 Cardiomyopathy, unspecified; I48.1 Persistent atrial fibrillation; I25.10 Atherosclerotic heart disease of native coronary artery without angina pectoris; E78.5 Hyperlipidemia, unspecified; I10 Essential (primary) hypertension; D75.1 Secondary polycythemia; Z87.891 Personal history of nicotine dependence; Z99.81 Dependence on supplemental oxygen; Z79.01 Long term (current) use of anticoagulants
CPT/HCPCS: 36415; 71045; 80053; 82805; 83880; 84484; 85007; 85027; 93005; 94640; 94660; 94760; 96374

== ENCOUNTER 2018-09-01 10:40 | Emergency (ER) | payer MEDICARE, MEDICAID ==
[~2018-09-01] VITALS: Ht 175.3 cm; Wt 78.0 kg
[~2018-09-01 10:40] MED LIST changes: +AMOX1TAB12 PO; +MELA10TA PO; +MONT10TA24 PO; +PRED5TAB PO
--- NOTE | 2018-09-01 10:45 | NUR ---
Pt request's to be DNR.
--- NOTE | 2018-09-01 10:50 | ED Dyspnea ---
General Stated Complaint: SOA Source of Information: Patient Exam Limitations: No Limitations History of Present Illness Date Seen by Provider: Sep 01, 2018 Time Seen by Provider: 10:49 Initial Comments To ER per private vehicle from home with reports of worsening shortness of breath starting about 9 PM last night. He decided to sleep through the night and reevaluate this morning. He has known atrial fibrillation on Eliquis, he is on supplemental oxygen at 3 L per day for COPD. He was recently admitted to the hospital and discharged within the past week. On his baseline 3 L of oxygen he is 86% SPO2 on arrival. He also states that whenever he is discharged to it like help getting into a longterm because he cannot take care of himself at home. Allergies and Home Medications Allergies Coded Allergies: No Known Drug Allergies (Unverified , 10/20/16) Home Medications Albuterol Sulfate 2.5 Mg/0.5 Ml Vial.neb, 2.5 MG INH Q4H PRN for SHORTNESS OF BREATH, (Reported) Apixaban 5 Mg Tablet, 5 MG PO BID, (Reported) Ascorbate Calcium 500 Mg Tablet, 500 MG PO DAILY, (Reported) Digoxin 125 Mcg Tablet, 125 MCG PO DAILY, (Reported) Diltiazem HCl 120 Mg Cap.er.24h, 120 MG PO DAILY, (Reported) Fluticasone Propionate 16 Gm Lena.susp, 1-2 SPRAYS NSEACH BID PRN for ALLERGIES, (Reported) Furosemide 40 Mg Tablet, 40 MG PO MoTuWe, (Reported) Melatonin 10 Mg Tab.mphase, 30 MG PO HS, (Reported) Metoprolol Succinate 100 Mg Tab.er.24h, 100 MG PO DAILY, (Reported) Montelukast Sodium 10 Mg Tablet, 10 MG PO DAILY, (Reported) Multivitamin/Iron/Folic Acid 1 Each Tablet, 1 TAB PO DAILY, (Reported) [place]-3 Fatty Acids/Fish Oil 1 Each Capsule, 2,400 MG PO DAILY, (Reported) TAKES 2 (1,200 MG) CAPSULES Oxymetazoline HCl 30 Ml Lena, 1-2 SPRAYS NSEACH DAILY PRN for CONGESTION, (Reported) Prednisone 5 Mg Tablet, 5 MG PO UD, (Reported) TAKE 12 TABLETS BY MOUTH ONCE DAILY DECREASING BY 2 TABLETS EVERY OTHER DAY Prednisone 20 Mg Tab, 40 MG PO DAILY 40mg with breakfast for 3 days then 20mg for 3 days then off. Prescribed by: CRISTINA ROLLE on 08/27/18 1011 Roflumilast 500 Mcg Tablet, 500 MCG PO DAILY, (Reported) Rosuvastatin Calcium 20 Mg Tablet, 20 MG PO DAILY, (Reported) Umeclidinium Brm/Vilanterol Tr 1 Each Blst.w.dev, 1 PUFF IH DAILY, (Reported) Patient Home Medication List Home Medication List Reviewed: Yes Review of Systems Review of Systems Constitutional: see HPI EENTM: see HPI Respiratory: see HPI, short of breath Cardiovascular: no symptoms reported; No chest pain Genitourinary: no symptoms reported Musculoskeletal: no symptoms reported Skin: no symptoms reported Psychiatric/Neurological: No Symptoms Reported Endocrine: No Symptoms Reported Past Ctotgkp-Gjvmlt-Gmcdab Hx Patient Social History Type Used: Cigarettes Former Smoker, Quit: Jun 10, 2007 2nd Hand Smoke Exposure: No Recent Foreign Travel: No Contact w/Someone Who Travel: No Recent Hopitalizations: No Immunizations Up To Date Tetanus Booster (TDap): Unknown Date of Pneumonia Vaccine: Dec 08, 2015 Date of Influenza Vaccine: Dec 08, 2015 Seasonal Allergies Seasonal Allergies: Yes Past Medical History Surgeries: Yes (I&D, [facility]) Respiratory: Yes (2L O2 NC) COPD Currently Using CPAP: Yes Cardiac: Yes (CARDIOMYOPATHY WAS IN A-FIB JUNE 2009, pulmonary hypertension) Atrial Fibrillation, Cardiomyopathy, Coronary Artery Disease, High Cholesterol, Hypertension, Irregular Heartbeat, Valvular Heart Disease Neurological: No Reproductive Disorders: No Sexually Transmitted Disease: No HIV/AIDS: No Genitourinary: No Gastrointestinal: No Musculoskeletal: No Endocrine: No Loss of Vision: Bilateral Hearing Impairment: Denies Cancer: No Psychosocial: No Integumentary: No Blood Disorders: Yes (POLYCYTHEMIA) Adverse Reaction/Blood Tranf: No Physical Exam Vital Signs Vital Signs - First Documented 09/01/18 09/01/18 10:45 11:18 Pulse 100 Resp 20 Pulse Ox 100 O2 Delivery Room Air O2 Flow Rate 7.00 Capillary Refill : Height, Weight, BMI Height: 5'6.00" Weight: 180lbs. 2.0oz. [id number]; 26.0 BMI Method:Stated General Appearance: No Apparent Distress, WD/WN, Other (this in short phrases) HEENT: PERRL/EOMI, TMs Normal Respiratory: Accessory Muscle Use, Decreased Breath Sounds, Wheezing Cardiovascular: Normal Peripheral Pulses, Irregularly Irregular, Tachycardia (initial heart rate 130 to 170) Gastrointestinal: Normal Bowel Sounds, Non Tender, Soft Extremity: Normal Capillary Refill, Normal Inspection Neurologic/Psychiatric: Alert, Oriented x3 Skin: Normal Color, Warm/Dry Progress/Results/Core Measures Results/Orders Lab Results Laboratory Tests Test 09/01/18 11:11 09/01/18 11:30 Range/Units Blood Gas Puncture Site RT RAD Blood Gas Patient Temperature 98.2 Arterial Blood pH 7.39 7.37-7.43 Arterial Blood Partial Pressure CO2 62 H 35-45 MMHG Arterial Blood Partial Pressure O2 134 H 79-93 MMHG Arterial Blood HCO3 36 H 23-27 MMOL/L Arterial Blood Total CO2 38.3 H 21.0-31.0 MMOL/L Arterial Blood Oxygen Saturation 99 94-100 % Arterial Blood Base Excess 10.9 H -2.5-2.5 MMOL/L Kwesi Test YES-POS Blood Gas Ventilator Setting NO Blood Gas Inspired Oxygen 6 L White Blood Count 10.8 4.3-11.0 10^3/uL Red Blood Count 5.07 4.35-5.85 10^6/uL Hemoglobin 15.5 13.3-17.7 G/DL Hematocrit 50 40-54 % Mean Corpuscular Volume 98 80-99 FL Mean Corpuscular Hemoglobin 31 25-34 PG Mean Corpuscular Hemoglobin Concent 31 L 32-36 G/DL Red Cell Distribution Width 14.6 H 10.0-14.5 % Platelet Count 86 L 130-400 10^3/uL Mean Platelet Volume 10.7 H 7.4-10.4 FL Neutrophils (%) (Auto) 83 H 42-75 % Lymphocytes (%) (Auto) 8 L 12-44 % Monocytes (%) (Auto) 8 0-12 % Eosinophils (%) (Auto) 1 0-10 % Basophils (%) (Auto) 0 0-10 % Neutrophils # (Auto) 9.0 H 1.8-7.8 X 10^3 Lymphocytes # (Auto) 0.9 L 1.0-4.0 X 10^3 Monocytes # (Auto) 0.9 0.0-1.0 X 10^3 Eosinophils # (Auto) 0.1 0.0-0.3 10^3/uL Basophils # (Auto) 0.0 0.0-0.1 10^3/uL Prothrombin Time 15.2 H 12.2-14.7 SEC INR Comment 1.2 0.8-1.4 Activated Partial Thromboplast Time 35 24-35 SEC Sodium Level 143 135-145 MMOL/L Potassium Level 4.5 3.6-5.0 MMOL/L Chloride Level 100 98-107 MMOL/L Carbon Dioxide Level 34 H 21-32 MMOL/L Anion Gap 9 5-14 MMOL/L Blood Urea Nitrogen 22 H 7-18 MG/DL Creatinine 0.81 0.60-1.30 MG/DL Estimat Glomerular Filtration Rate > 60 BUN/Creatinine Ratio 27 Glucose Level 102 70-105 MG/DL Calcium Level 8.9 8.5-10.1 MG/DL Corrected Calcium 9.6 8.5-10.1 MG/DL Magnesium Level 1.9 1.8-2.4 MG/DL Total Bilirubin 0.8 0.1-1.0 MG/DL Aspartate Amino Transf (AST/SGOT) 22 5-34 U/L Alanine Aminotransferase (ALT/SGPT) 32 0-55 U/L Alkaline Phosphatase 65 40-136 U/L Myoglobin 67.3 10.0-92.0 NG/ML Troponin I 0.037 H <0.028 NG/ML Total Protein 5.7 L 6.4-8.2 GM/DL Albumin 3.1 L 3.2-4.5 GM/DL My Orders Orders - LIZZ [employer] Cbc With Automated Diff (09/01/18 10:46) Magnesium (09/01/18 10:46) Chest 1 View, Ap/Pa Only (09/01/18 10:46) Ekg Tracing (09/01/18 10:46) Cardiac Profile 1 (09/01/18 10:46) Comprehensive Metabolic Panel (09/01/18 10:46) Myoglobin Serum (09/01/18 10:46) Protime With Inr (09/01/18 10:46) Partial Thromboplastin Time (09/01/18 10:46) O2 (09/01/18 10:46) Monitor-Rhythm Ecg Trace Only (09/01/18 10:46) Lipid Panel (09/02/18 06:00) Ed Iv/Invasive Line Start (09/01/18 10:46) Aspirin Chewable Tablet (Baby Aspirin Ch (09/01/18 11:00) Diltiazem Injection (Cardizem Injection) (09/01/18 11:00) Bipap (Bilevel) Set Up (09/01/18 10:55) Levalbuterol (Non-Formulary) (Xopenex (N (09/01/18 11:00) Arterial Blood Gas (09/01/18 11:00) Metoprolol Succinate (Xl) Tab (Toprol Xl (09/01/18 12:15) Ct Chest W (09/01/18 12:09) Iohexol Injection (Omnipaque 350 Mg/Ml 1 (09/01/18 12:30) Received Contrast (Hold Metformin- Contr (09/01/18 12:30) Ns (Ivpb) (Sodium Chloride 0.9% Ivpb Bag (09/01/18 12:30) Heart Healthy (09/01/18 Lunch) Medications Given in ED Current Medications Medications Dose Ordered Sig/Mayito Route Start Time Stop Time Status Last Admin Dose Admin Aspirin 324 mg ONCE ONCE PO 09/01/18 11:00 09/01/18 11:01 DC 09/01/18 11:20 324 MG Iohexol 75 ml ONCE ONCE IV 09/01/18 12:30 09/01/18 12:31 DC 09/01/18 12:51 75 ML Metoprolol Succinate 100 mg ONCE ONCE PO 09/01/18 12:15 09/01/18 12:16 DC 09/01/18 12:23 100 MG Sodium Chloride 100 ml ONCE ONCE IV 09/01/18 12:30 09/01/18 12:31 DC 09/01/18 12:51 80 ML Vital Signs/I&O 09/01/18 09/01/18 09/01/18 10:45 11:18 11:30 Pulse 100 98 Resp 20 18 Pulse Ox 100 100 97 O2 Delivery Room Air O2 Flow Rate 7.00 40.00 30.00 Diagnostic Imaging Diagonstic Imaging: CT Comments NAME: COOPER MARTINEZ [facility] REC#: [id number] PT STATUS: REG ER : 1940 PHYSICIAN: LIZZ VIDAL APRN ADMIT DATE: 09/01/18/ER Draft Date of Exam:09/01/18 CT CHEST W PROCEDURE: CT chest with contrast only. TECHNIQUE: Multiple contiguous axial images were obtained through the chest after administration of intravenous contrast. Auto Exposure Controls were utilized during the CT exam to meet ALARA standards for radiation dose reduction. INDICATION: Difficulty breathing. COMPARISON: Chest x-ray from the same day. FINDINGS: There is mild cardiomegaly. No pericardial effusion is seen. No mediastinal adenopathy is seen. There is a hypodense 1 cm nodule in the right adrenal gland, likely a cyst given the ultrasound on 11/06/2007. No axillary adenopathy is seen. There is aortic atherosclerosis. There is coronary atherosclerosis. No dissection or aneurysm is seen. There are mild emphysematous changes in the lung apices. No pleural effusion or pneumothorax is seen. There is no central endobronchial lesions. No acute osseous abnormality is seen. Imaged portions of the upper abdomen demonstrate a large calcified stone in the gallbladder which is partially visualized and measures up to 2.5 cm in size. IMPRESSION: 1. Emphysematous changes in the lungs, with no focal consolidation seen. 2. Mild cardiomegaly. 3. Cholelithiasis. Dictated on workstation # [id number] Dict: 09/01/18 1303 Trans: 09/01/18 1309 CVB [id number] Interpreted by: FLAKITA ARCHIBALD MD Electronically signed by: Departure Communication (Admissions) 1156-I have canceled the order for Cardizem bolus as his heart rate currently is 93-110 still atrial fibrillation. Oxygen saturation 96% on BiPAP at settings of rate 14, 12/5, 30% FiO2. 1213-I spoke with Dr. Rolle, the patient has improved, heart rate 90-110 still A. fib, respiratory rate has slowed and effort has decreased since arrival. Heart rate reduced on its own without any intervention at this time does not warrant admission. We'll do a CT of the chest, then plan for discharge to home for the patient to see Dr. Rolle on Tuesday to arrange longterm placement. Impression Primary Impression: Atrial fibrillation with RVR Disposition: ADMITTED INPATIENT Condition: Stable Admissions Decision to Admit Reason: Admit from ER (General) Decision to Admit/Date: Sep 01, 2018 Time/Decision to Admit Time: 10:58 Departure-Patient Inst. Decision time for Depature: 13:18 Referrals: CRISTINA ROLLE MD (PCP/Family) Primary Care Physician Patient Instructions: Atrial Fibrillation, COPD Including Emphysema (DC) Add. Discharge Instructions: Follow-up with Dr. Rolle on Tuesday to discuss longterm placement. Call his office first thing Tuesday morning to get a time. Return to ER for any worsening. Increase your metoprolol dosage from 100 mg daily to 200 mg daily in the meantime Copy Copies To 1: CRISTINA ROLLE MD, PETER J APRN Sep 01, 2018 10:50
[2018-09-01] MEDS ORDERED: DILTIAZEM 25 MG/5 ML INJ (CARDIZEM) VIAL IVP ONE (11:00)
[2018-09-01] MEDS ORDERED: RT-LEVALBUTEROL (XOPENEX) 1.25 MG/3 ML NEB NON-FORMULARY INH SCH (11:00)
[2018-09-01] MEDS ORDERED: ASPIRIN 81 MG CHEW (CHILDREN'S ASA) PO ONE (11:00)
--- NOTE | 2018-09-01 11:09 | Diagnostic Imaging Report ---
Indication: Shortness of breath. Portable chest 10:57 AM Heart size and pulmonary vascularity are normal. Lungs are clear. There are no effusions or pneumothoraces. Impression: Negative chest. Dictated by: Dictated on workstation # [id number]
[2018-09-01 11:18] VITALS: BP 127/87
[2018-09-01 11:18] LABS: ABG BASE EXCESS 10.9 MMOL/L (-2.5-2.5); ABG OXYGEN SATURATION 99 % (94-100); ABG PCO2 62 MMHG (35-45); ABG PH 7.39 (7.37-7.43); ABG PO2 134 MMHG (79-93); ABG TCO2 38.3 MMOL/L (21.0-31.0)
[2018-09-01 11:19] LABS: ALLENS TEST YES-POS; INSPIRED O2 6 L; PATIENT TEMP 98.2; VENTILATOR NO
[2018-09-01 11:30] VITALS: BP_DIAS 87
[2018-09-01 11:36] LABS: BASOPHILS % (AUTO) 0 % (0-10); EOSINOPHILS # (AUTO) 0.1 10^3/uL (0.0-0.3); EOSINOPHILS % (AUTO) 1 % (0-10); HEMATOCRIT 50 % (40-54); HEMOGLOBIN 15.5 G/DL (13.3-17.7); LYMPHOCYTES # (AUTO) 0.9 X 10^3 (1.0-4.0); LYMPHOCYTES % (AUTO) 8 % (12-44); MEAN CORPUSCULAR HEMOGLOBIN 31 PG (25-34); MEAN CORPUSCULAR HGB CONC 31 G/DL (32-36); MEAN CORPUSCULAR VOLUME 98 FL (80-99); MEAN PLATELET VOLUME 10.7 FL (7.4-10.4); MONOCYTES # (AUTO) 0.9 X 10^3 (0.0-1.0); MONOCYTES % (AUTO) 8 % (0-12); NEUTROPHILS % (AUTO) 83 % (42-75); PLATELET COUNT 86 10^3/uL (130-400); RED CELL DISTRIBUTION WIDTH 14.6 % (10.0-14.5); WHITE BLOOD COUNT 10.8 10^3/uL (4.3-11.0)
[2018-09-01 11:52] LABS: INR 1.2 (0.8-1.4); PROTHROMBIN TIME PATIENT 15.2 SEC (12.2-14.7)
[2018-09-01 11:58] LABS: ALANINE AMINOTRANSFERASE 32 U/L (0-55); ALBUMIN 3.1 GM/DL (3.2-4.5); ALKALINE PHOSPHATASE 65 U/L (40-136); BILIRUBIN,TOTAL 0.8 MG/DL (0.1-1.0); BUN/CREATININE RATIO 27; CALCIUM 8.9 MG/DL (8.5-10.1); CARBON DIOXIDE 34 MMOL/L (21-32); CHLORIDE 100 MMOL/L (98-107); CREATININE SERUM 0.81 MG/DL (0.60-1.30); GFR ESTIMATED > 60; GLUCOSE 102 MG/DL (70-105); MAGNESIUM 1.9 MG/DL (1.8-2.4); POTASSIUM 4.5 MMOL/L (3.6-5.0); SODIUM 143 MMOL/L (135-145); TOTAL PROTEIN 5.7 GM/DL (6.4-8.2)
[2018-09-01] MEDS ORDERED: meTOprolol SUCCINATE 100 MG (TOPROL XL) TAB PO ONE (12:15)
[2018-09-01] MEDS ORDERED: IOHEXOL 350 MG/ML 100 ML (OMNIPAQUE 350) VIAL IV ONE (12:30)
[2018-09-01] MEDS ORDERED: HOLD METFORMIN - RECEIVED CONTRAST 20 ML VIAL IV SCH (12:30)
[2018-09-01] MEDS ORDERED: NS 100 ML (IVPB) BAG IV ONE (12:30)
--- NOTE | 2018-09-01 13:10 | Diagnostic Imaging Report ---
PROCEDURE: CT chest with contrast only. TECHNIQUE: Multiple contiguous axial images were obtained through the chest after administration of intravenous contrast. Auto Exposure Controls were utilized during the CT exam to meet ALARA standards for radiation dose reduction. INDICATION: Difficulty breathing. COMPARISON: Chest x-ray from the same day. FINDINGS: There is mild cardiomegaly. No pericardial effusion is seen. No mediastinal adenopathy is seen. There is a hypodense 1 cm nodule in the right adrenal gland, likely a cyst given the ultrasound on 11/06/2007. No axillary adenopathy is seen. There is aortic atherosclerosis. There is coronary atherosclerosis. No dissection or aneurysm is seen. There are mild emphysematous changes in the lung apices. No pleural effusion or pneumothorax is seen. There is no central endobronchial lesions. No acute osseous abnormality is seen. Imaged portions of the upper abdomen demonstrate a large calcified stone in the gallbladder which is partially visualized and measures up to 2.5 cm in size. IMPRESSION: 1. Emphysematous changes in the lungs, with no focal consolidation seen. 2. Mild cardiomegaly. 3. Cholelithiasis. Dictated by: Dictated on workstation # [id number]
[2018-09-01 14:06] VITALS: BP 123/107
== END 2018-09-01 13:55 | disposition other institution (70) ==
LOC: ER 10:40 → EDUNIT# 10:40 → ER 13:55
DX: I48.91 Unspecified atrial fibrillation (principal); J44.9 Chronic obstructive pulmonary disease, unspecified; I51.7 Cardiomegaly; I27.20 Pulmonary hypertension, unspecified; I10 Essential (primary) hypertension; E78.00 Pure hypercholesterolemia, unspecified; I25.10 Atherosclerotic heart disease of native coronary artery without angina pectoris; Z79.01 Long term (current) use of anticoagulants; Z99.81 Dependence on supplemental oxygen; Z79.51 Long term (current) use of inhaled steroids; Z87.891 Personal history of nicotine dependence
CPT/HCPCS: 36415; 36600; 71045; 71260; 80053; 82805; 83735; 83874; 84484; 85025; 85610; 85730; 93005; 93041; 94640

== ENCOUNTER 2018-09-18 16:51 | Inpatient (IN) | payer MEDICARE, MEDICAID ==
[~2018-09-18] VITALS: Ht 175.3 cm; Wt 77.3 kg
--- NOTE | 2018-09-18 17:05 | NUR ---
COOPER MARTIENZ admitted to room 422-1, with an admitting diagnosis of HYPERCAPNIA RESP FAILURE, COPD, CHRONIC AFIB , on 09/18/[address] MEADOWS'S OFFICE via W/C, accompanied by STAFF.COOPER MARTINEZ introduced to surroundings, call light, bed controls, phone, TV, temperature control, lights, meal times, smoking policy, visitor policy, side rail policy, bathrooms and showers. Patient Rights given to patient in the handbook. COOPER MARTINEZ verbalizes understanding that [facility] is not responsible for the loss or damage to any personal effects or valuables that are kept in the patients posession during their hospitalization. The following Patient Care Plans were discussed with the PT: Discharge Planning, IMP GAS EXCH, INEFF BREATHING PATTERN, INEFF AIRWAY CLEARANCE, RISK OF INFECTION, ACT INTOL, AND ANXIETY. COOPER MARTINEZ verbalizes understanding of Interdisciplinary Patient Education. Patient and/or family were informed about the Rapid Response Team and its purpose. NOTE THAT DR MEADOWS CALLED THIS RN -- PT IS ON COMFORT CARE -- PLAN IS FOR PT TO GO TO [facility] IN AM PER DR MEADOWS ( HE MADE ARRANGEMENTS FROM HIS OFFICE) NOTE THAT PT HAS HIS HOME MEDS WITH HIM AND FAMILY BROUGHT HIS BIPAP TO ROOM PER RT REQUEST - NOTE THAT RT WAS CALLED AND ADVISED
[2018-09-18 17:44] LABS: HEMOGLOBIN 14.2 G/DL (13.3-17.7); MEAN PLATELET VOLUME 10.2 FL (7.4-10.4); RED CELL DISTRIBUTION WIDTH 13.9 % (10.0-14.5); WHITE BLOOD COUNT 5.3 10^3/uL (4.3-11.0)
[2018-09-18] MEDS ORDERED: morphine (ROXINOL) 10 MG/0.5 ML oral conc 0.5 ML PO PRN (17:45)
[2018-09-18] MEDS ORDERED: LORazepam 0.5 MG (ATIVAN) TABLET PO PRN (17:45)
[2018-09-18] MEDS ORDERED: RT-ALBUTEROL SULF 2.5 MG/3 ML PRE-MIX VIAL INH PRN (17:45)
[2018-09-18] MEDS ORDERED: CATHETER FLUSH 10 ML SYR IV PRN (17:45)
[2018-09-18 17:47] VITALS: BP 129/83
[2018-09-18 18:02] LABS: ABG BASE EXCESS 13.1 MMOL/L (-2.5-2.5); ABG OXYGEN SATURATION 95 % (94-100); ABG PCO2 66 MMHG (35-45); ABG PH 7.39 (7.37-7.43); ABG PO2 68 MMHG (79-93); ABG TCO2 40.7 MMOL/L (21.0-31.0)
[2018-09-18 18:04] LABS: ALLENS TEST YES-POS; INSPIRED O2 4L; PATIENT TEMP 98.6; VENTILATOR NO
[2018-09-18 18:06] LABS: ALANINE AMINOTRANSFERASE 18 U/L (0-55); ALBUMIN 3.2 GM/DL (3.2-4.5); ALKALINE PHOSPHATASE 65 U/L (40-136); BILIRUBIN,TOTAL 0.6 MG/DL (0.1-1.0); BUN/CREATININE RATIO 21; CALCIUM 9.1 MG/DL (8.5-10.1); CARBON DIOXIDE 39 MMOL/L (21-32); CHLORIDE 97 MMOL/L (98-107); CREATININE SERUM 0.95 MG/DL (0.60-1.30); GFR ESTIMATED > 60; GLUCOSE 91 MG/DL (70-105); POTASSIUM 4.3 MMOL/L (3.6-5.0); SODIUM 143 MMOL/L (135-145); TOTAL PROTEIN 5.9 GM/DL (6.4-8.2)
[2018-09-18 19:57] VITALS: BP 137/75
[2018-09-18] MEDS: CATHETER FLUSH 10 ML SYR IV SCH (20:30)
[2018-09-18] MEDS: APIXABAN 5 MG (ELIQUIS) TABLET PO SCH (20:30)
[2018-09-18] MEDS ORDERED: ROSUVASTATIN 20 MG (CRESTOR) TABLET PO SCH (21:00)
[2018-09-19] VITALS: BP 118/80
--- OUTSIDE RECORDS SUMMARY | 2018-09-19 01:18 | XMS REPORT | Continuity of Care Document ---
Author Organization Unknown Address Unknown Allergies Active Description Code Type Severity Reaction Onset Reported/Identified Relationship to Patient Clinical Status Yes NKANo Known Allergies NKA Miscellaneous Allergy Unknown N/A 04/03/2005 Yes No Known Drug Allergies [id number] Drug Allergy Mild N/A 07/29/2008 Yes No Known Drug Allergies [id number] Drug Allergy Unknown N/A 10/20/2016 Medications There [...] USE 02/13/2011 Ot 414.01 CORONARY ATHEROSCLEROSIS OF [place] CORON 02/13/2011 Ot 414.8 CHR ISCHEMIC HRT [...] NEC/NOS 03/09/2011 Ot 414.01 CORONARY ATHEROSCLEROSIS OF [place] CORON 03/09/2011 Ot 416.9 CHR PULMON HEART [...] INFARCT,IN 04/01/2011 Ot 414.01 CORONARY ATHEROSCLEROSIS OF [place] CORON 04/01/2011 Ot 414.8 CHR ISCHEMIC HRT [...] Ot 414.00 11/22/2014 Ot 493.00 11/22/2014 RYANNE KOWNG, ANTOLIN Etienne Ot 272.4 11/22/2014 ANTOLIN PEARL [...] KWONG, ANTOLIN J Ot 496 11/22/2014 RYANNE KWNOG, ANTOLIN J Ot 786.09 11/22/2014 ABDIEL KWONG, CRISTINA Drake Ot 242.90 11/22/2014 ABDIEL KWONG, CRISTINA Drake Ot 427.31 11/22/2014 CRISTINA MEADOWS MD Ot V58.61 11/22/2014 Ot 401.9 11/22/2014 Ot 427.31 11/22/2014 Ot 496 11/22/2014 Ot V58.61 11/22/2014 Ot 272.4 11/22/2014 KRISTIN FISH PUBLIC ADDRESS TECHNICIAN Ot 272.4 11/22/2014 KRISTIN FISH PUBLIC ADDRESS TECHNICIAN Ot 414.00 11/22/2014 KRISTIN FISH PUBLIC ADDRESS TECHNICIAN Ot 272.4 11/22/2014 KRISTIN FISH PUBLIC ADDRESS TECHNICIAN Ot 414.00 11/22/2014 KRISTIN FISH PUBLIC ADDRESS TECHNICIAN Ot 272.4 11/22/2014 FISHKRISTIN WILSON PUBLIC ADDRESS TECHNICIAN Ot 414.00 08/18/2015 Ot 496 CHR AIRWAY OBSTRUCT NEC 08/18/2015 Ot 789.59 OTHER ASCITES 08/18/2015 Ot 272.4 HYPERLIPIDEMIA NEC/NOS 08/18/2015 Ot 401.9 HYPERTENSION NOS 08/18/2015 Ot 272.4 HYPERLIPIDEMIA NEC/NOS 08/18/2015 Ot 414.00 CORON ATHEROSCLER NOS TYPE VESSEL, NATIV 08/18/2015 Ot 276.7 HYPERPOTASSEMIA 08/18/2015 Ot 414.00 CORON ATHEROSCLER NOS TYPE VESSEL, NATIV 08/18/2015 Ot V58.69 OTH MED,LT,CURRENT USE 08/18/2015 Ot 414.01 CORONARY ATHEROSCLEROSIS OF [place] CORON 08/18/2015 Ot 786.50 CHEST PAIN NOS 08/18/2015 Ot 786.05 SHORTNESS OF BREATH 08/18/2015 Ot 272.4 HYPERLIPIDEMIA NEC/NOS 08/18/2015 Ot V58.69 OTH MED,LT,CURRENT USE 08/18/2015 Ot V58.83 ENCOUNTER FOR THERAPEUTIC DRUG MONITORIN 08/18/2015 Ot 272.4 HYPERLIPIDEMIA NEC/NOS 08/18/2015 Ot 414.00 CORON ATHEROSCLER NOS TYPE VESSEL, NATIV 08/18/2015 KRISTIN FISH PUBLIC ADDRESS TECHNICIAN Ot 272.4 HYPERLIPIDEMIA NEC/NOS 08/18/2015 FISHKRISTIN WILSON PUBLIC ADDRESS TECHNICIAN Ot 414.00 CORON ATHEROSCLER NOS TYPE VESSEL, NATIV 08/18/2015 KRISTIN FISH PUBLIC ADDRESS TECHNICIAN Ot E78.4 OTHER HYPERLIPIDEMIA 08/18/2015 KRISTIN FISH PUBLIC ADDRESS TECHNICIAN Ot I25.10 ATHSCL HEART DISEASE OF [place] CORONARY 08/18/2015 Ot 493.00 EXTRINSIC ASTHMA, NOS [...] USE 05/24/2016 Ot 414.01 CORONARY ATHEROSCLEROSIS OF [place] CORON 05/24/2016 Ot 786.50 CHEST PAIN NOS 05/24/2016 Ot 786.05 SHORTNESS OF BREATH 05/24/2016 Ot 272.4 HYPERLIPIDEMIA NEC/NOS 05/24/2016 Ot V58.69 OTH MED,LT,CURRENT USE 05/24/2016 Ot V58.83 ENCOUNTER FOR THERAPEUTIC DRUG MONITORIN 05/24/2016 Ot 272.4 HYPERLIPIDEMIA NEC/NOS 05/24/2016 Ot 414.00 CORON ATHEROSCLER NOS TYPE VESSEL, NATIV 05/24/2016 FISHKRISTIN WILSON PUBLIC ADDRESS TECHNICIAN Ot 272.4 HYPERLIPIDEMIA NEC/NOS 05/24/2016 KRISTIN FISH PUBLIC ADDRESS TECHNICIAN Ot 414.00 CORON ATHEROSCLER NOS TYPE VESSEL, NATIV 05/24/2016 KRISTIN FISH PUBLIC ADDRESS TECHNICIAN Ot E78.4 OTHER HYPERLIPIDEMIA 05/24/2016 FISHKRISTIN WILSON PUBLIC ADDRESS TECHNICIAN Ot I25.10 ATHSCL HEART DISEASE OF [place] CORONARY 05/24/2016 Ot 493.00 EXTRINSIC ASTHMA, NOS [...] MD Ot I25.10 ATHSCL HEART DISEASE OF [place] CORONARY 05/30/2016 ANTOLIN PEARL MD Ot I48.0 PAROXYSMAL ATRIAL FIBRILLATION 05/30/2016 ANTOLIN PEARL MD Ot I50.9 HEART FAILURE, UNSPECIFIED 06/08/2016 ANTOLIN PEARL MD Ot E78.2 MIXED HYPERLIPIDEMIA 06/08/2016 ANTOLIN PEARL MD Ot I11.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 06/08/2016 ANTOLIN PEARL MD Ot I25.10 ATHSCL HEART DISEASE OF [place] CORONARY 06/08/2016 ANTOLIN PEARL MD Ot I48.0 PAROXYSMAL ATRIAL FIBRILLATION 06/08/2016 ANTOLIN PEARL MD Ot I48.91 UNSPECIFIED ATRIAL FIBRILLATION 06/08/2016 ANTOLIN PEARL MD Ot I50.9 HEART FAILURE, UNSPECIFIED 06/09/2016 ANTOLIN PEARL MD Ot E78.5 HYPERLIPIDEMIA, UNSPECIFIED 06/09/2016 ANTOLIN PEARL MD Ot I12.9 HYPERTENSIVE CHRONIC KIDNEY DISEASE W ST 06/09/2016 ANTOLIN PEARL MD Ot I25.10 ATHSCL HEART DISEASE OF [place] CORONARY 06/09/2016 ANTOLIN PEARL MD Ot I27.81 [...] CARDIOVASCULAR 06/09/2016 ANTOLIN PEARL MD Ot Z79.01 PRISON (CURRENT) USE OF ANTICOAGULANT 06/09/2016 ANTOLIN PEARL MD Ot Z79.899 OTHER PRISON (CURRENT) DRUG THERAPY 06/09/2016 ANTOLIN PEARL MD [...] J Ot I25.10 ATHSCL HEART DISEASE OF [place] CORONARY 07/05/2016 ANTOLIN PEARL MD J Ot I48.0 PAROXYSMAL ATRIAL FIBRILLATION 07/05/2016 ANTOLIN PEARL MD Ot I48.91 UNSPECIFIED ATRIAL FIBRILLATION 07/05/2016 ANTOLIN PEARL MD Ot I50.9 HEART FAILURE, UNSPECIFIED 07/09/2016 ANTOLIN PEARL MD Ot E78.2 MIXED HYPERLIPIDEMIA 07/09/2016 ANTOLIN PEARL MD J Ot I11.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 07/09/2016 ANTOLIN PEARL MD Ot I25.10 ATHSCL HEART DISEASE OF [place] CORONARY 07/09/2016 ANTOLIN PEARL MD Ot I48.0 [...] MD Ot I25.10 ATHSCL HEART DISEASE OF [place] CORONARY 07/28/2016 ANTOLIN PEARL MD Ot I48.0 [...] MD Ot I25.10 ATHSCL HEART DISEASE OF [place] CORONARY 08/03/2016 ANTOLIN PEARL MD Ot I48.0 PAROXYSMAL ATRIAL FIBRILLATION 08/03/2016 ANTOLIN PEARL MD Ot I50.9 HEART FAILURE, UNSPECIFIED 08/09/2016 ANTOLIN PEARL MD Ot E78.2 MIXED HYPERLIPIDEMIA 08/09/2016 ANTOLIN PEARL MD Ot I11.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 08/09/2016 ANTOLIN PEARL MD Ot I25.10 ATHSCL HEART DISEASE OF [place] CORONARY 08/09/2016 ANTOLIN PEARL MD Ot I48.0 [...] CRISTY ANAND Ot Y92.[address] IN [facility] NON-INSTITUT (PRIVATE 01/17/2017 CRISTY ANAND Ot Z87.891 [...] Ot D75.1 SECONDARY POLYCYTHEMIA 11/09/2017 KRISTIN FISH PUBLIC ADDRESS TECHNICIAN Ot 272.4 HYPERLIPIDEMIA NEC/NOS 11/09/2017 KRISTIN FISH PUBLIC ADDRESS TECHNICIAN Ot 414.00 CORON ATHEROSCLER NOS TYPE VESSEL, NATIV 11/09/2017 KRISTIN FISH PUBLIC ADDRESS TECHNICIAN Ot E78.4 OTHER HYPERLIPIDEMIA 11/09/2017 KRISTIN FISH PUBLIC ADDRESS TECHNICIAN Ot I25.10 ATHSCL HEART DISEASE OF [place] CORONARY 11/09/2017 Ot 493.00 EXTRINSIC ASTHMA, NOS [...] MD Ot I25.10 ATHSCL HEART DISEASE OF [place] CORONARY 11/09/2017 ANTOLIN PEARL MD Ot I48.0 PAROXYSMAL ATRIAL FIBRILLATION 11/09/2017 ANTOLIN PEARL MD Ot I48.91 UNSPECIFIED ATRIAL FIBRILLATION 11/09/2017 ANTOLIN PEARL MD Ot I50.9 HEART FAILURE, UNSPECIFIED 11/09/2017 ANTOLIN PEARL MD Ot E78.2 MIXED HYPERLIPIDEMIA 11/09/2017 ANTOLIN PEARL MD Ot I11.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 11/09/2017 ANTOLIN PEARL MD Ot I25.10 ATHSCL HEART DISEASE OF [place] CORONARY 11/09/2017 ANTOLIN PEARL MD Ot I48.0 [...] INI 11/23/2017 MARIELA TERRY MD Ot Z79.51 TELEVISION CABLE INSTALLER (CURRENT) USE OF INHALED STERO 11/23/2017 MARIELA [...] INI 11/25/2017 MARIELA TERRY MD Ot Z79.51 TELEVISION CABLE INSTALLER (CURRENT) USE OF INHALED STERO 11/25/2017 MARIELA [...] MD Ot I25.10 ATHSCL HEART DISEASE OF [place] CORONARY 05/09/2018 ANTOLIN PEARL MD Ot I48.0 PAROXYSMAL ATRIAL FIBRILLATION 05/09/2018 ANTOLIN PEARL MD Ot I48.91 UNSPECIFIED ATRIAL FIBRILLATION 05/09/2018 ANTOLIN PEARL MD Ot I50.9 HEART FAILURE, UNSPECIFIED 05/09/2018 ANTOLIN PEARL MD Ot E78.2 MIXED HYPERLIPIDEMIA 05/09/2018 ANTOLIN PEARL MD Ot I11.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 05/09/2018 ANTOLIN PEARL MD Ot I25.10 ATHSCL HEART DISEASE OF [place] CORONARY 05/09/2018 ANTOLIN PEARL MD Ot I48.0 PAROXYSMAL ATRIAL FIBRILLATION 05/09/2018 ANTOLIN PEARL MD Ot I50.9 HEART FAILURE, UNSPECIFIED 05/09/2018 ABDIEL KWONG, CRISTINA Drake Ot D75.1 SECONDARY POLYCYTHEMIA 05/11/2018 ANTOLIN PEARL MD Ot I11.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 05/11/2018 ANTOLIN PEARL MD Ot I25.10 ATHSCL HEART DISEASE OF [place] CORONARY 05/11/2018 ANTOLIN PEARL MD Ot I48.91 UNSPECIFIED ATRIAL FIBRILLATION 05/11/2018 ANTOLIN PEARL MD Ot I50.9 HEART FAILURE, UNSPECIFIED 05/11/2018 ANTOLIN PEARL MD Ot J44.9 CHRONIC OBSTRUCTIVE PULMONARY DISEASE, U 05/11/2018 ANTOLIN PEARL MD Ot R06.09 OTHER FORMS OF DYSPNEA 05/30/2018 ANTOLIN PEARL MD Ot I11.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 05/30/2018 ANTOLIN PEARL MD Ot I25.10 ATHSCL HEART DISEASE OF [place] CORONARY 05/30/2018 ANTOLIN PEARL MD Ot I48.91 UNSPECIFIED ATRIAL FIBRILLATION 05/30/2018 ANTOLIN PEARL MD Ot I50.9 HEART FAILURE, UNSPECIFIED 05/30/2018 ANTOLIN PEARL MD Ot J44.9 CHRONIC OBSTRUCTIVE PULMONARY DISEASE, U 05/30/2018 ANTOLIN PEARL MD Ot R06.09 OTHER FORMS OF DYSPNEA 06/12/2018 ANTOLIN PEARL MD Ot I11.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 06/12/2018 ANTOLIN PEARL MD Ot I25.10 ATHSCL HEART DISEASE OF [place] CORONARY 06/12/2018 ANTOLIN PEARL MD Ot I48.91 [...] MD Ot I25.10 ATHSCL HEART DISEASE OF [place] CORONARY 08/19/2018 ANTOLIN PEARL MD Ot I48.0 PAROXYSMAL ATRIAL FIBRILLATION 08/19/2018 ANTOLIN PEARL MD Ot I48.91 UNSPECIFIED ATRIAL FIBRILLATION 08/19/2018 ATNOLIN PEARL MD Ot I50.9 HEART FAILURE, UNSPECIFIED 08/19/2018 ANTOLIN PEARL MD Ot E78.2 MIXED HYPERLIPIDEMIA 08/19/2018 ANTOLIN PEARL MD Ot I11.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 08/19/2018 ANTOLIN PEARL MD Ot I25.10 ATHSCL HEART DISEASE OF [place] CORONARY 08/19/2018 ANTOLIN PEARL MD Ot I48.0 PAROXYSMAL ATRIAL FIBRILLATION 08/19/2018 ANTOLIN PEARL MD Ot I50.9 HEART FAILURE, UNSPECIFIED 08/19/2018 CRISTINA MEADOWS MD Ot D75.1 SECONDARY POLYCYTHEMIA 08/19/2018 ANTOLIN PEARL MD Ot I11.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 08/19/2018 ANTOLIN PEARL MD Ot I25.10 ATHSCL HEART DISEASE OF [place] CORONARY 08/19/2018 RYANNE KWONG, ANTOLIN Etienne Ot [...] MD Ot I25.10 ATHSCL HEART DISEASE OF [place] CORONARY 08/19/2018 KATHIE WRAY MD Ot I48.91 [...] GIDDINESS 08/19/2018 KATHIE WRAY MD Ot Z79.01 TELEVISION CABLE INSTALLER (CURRENT) USE OF ANTICOAGULANT 08/19/2018 KATHIE WRAY MD Ot Z79.51 TELEVISION CABLE INSTALLER (CURRENT) USE OF INHALED STERO 08/19/2018 KATHIE WRAY MD Ot Z87.891 PERSONAL HISTORY OF NICOTINE DEPENDENCE 08/19/2018 KATHIE WRAY MD Ot Z99.81 DEPENDENCE ON SUPPLEMENTAL OXYGEN 08/21/2018 KATHIE WRAY MD Ot E78.00 PURE HYPERCHOLESTEROLEMIA, UNSPECIFIED 08/21/2018 KATHIE WRAY MD Ot I11.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 08/21/2018 KATHIE WRAY MD Ot I25.10 ATHSCL HEART DISEASE OF [place] CORONARY 08/21/2018 NILS KWONG, KATHIE Sharp Ot I48.91 UNSPECIFIED ATRIAL FIBRILLATION 08/21/2018 KATHIE WRAY MD Ot I50.9 HEART FAILURE, UNSPECIFIED 08/21/2018 KATHIE WRAY MD, Ot J44.1 CHRONIC OBSTRUCTIVE PULMONARY DISEASE W 08/21/2018 KATHIE WRAY MD Ot R06.02 SHORTNESS OF BREATH 08/21/2018 KATHIE WRAY MD Ot R06.89 OTHER ABNORMALITIES OF BREATHING 08/21/2018 KATHIE WRAY MD, Ot R42 DIZZINESS AND GIDDINESS 08/21/2018 KATHIE WRAY MD, Ot Z79.01 PRISON (CURRENT) USE OF ANTICOAGULANT 08/21/2018 KATHIE WRAY MD, Ot Z79.51 TELEVISION CABLE INSTALLER (CURRENT) USE OF INHALED STERO 08/21/2018 KATHIE WRAY MD Ot Z87.891 PERSONAL HISTORY OF NICOTINE DEPENDENCE 08/21/2018 KATHIE WRAY MD Ot Z99.81 DEPENDENCE ON SUPPLEMENTAL OXYGEN 08/27/2018 CRISTINA MEADOWS MD Ot D75.1 SECONDARY POLYCYTHEMIA 08/27/2018 CRISTINA MEADOWS MD Ot E78.5 HYPERLIPIDEMIA, UNSPECIFIED 08/27/2018 CRISTINA MEADOWS MD Ot I10 ESSENTIAL (PRIMARY) HYPERTENSION 08/27/2018 CRISTINA MEADOWS MD Ot I25.10 ATHSCL HEART DISEASE OF [place] CORONARY 08/27/2018 CRISTINA MEADOWS MD Ot I42.9 CARDIOMYOPATHY, UNSPECIFIED 08/27/2018 CRISTINA MEADOWS MD Ot I48.1 PERSISTENT ATRIAL FIBRILLATION 08/27/2018 CRISTINA MEADOWS MD Ot J20.8 ACUTE BRONCHITIS DUE TO OTHER SPECIFIED 08/27/2018 CRISITNA MEADOWS MD Ot J30.9 ALLERGIC RHINITIS, UNSPECIFIED 08/27/2018 CRISTINA MEADOWS MD Ot J44.0 CHRONIC OBSTRUCTIVE PULMON DISEASE W [facility] 08/27/2018 CRISTINA MEADOWS MD Ot J44.1 CHRONIC OBSTRUCTIVE PULMONARY DISEASE W 08/27/2018 CRISTINA MEADOWS MD Ot J96.22 ACUTE AND CHRONIC RESPIRATORY FAILURE [place] 08/27/2018 CRISTINA MEADOWS MD Ot Z79.01 PRISON (CURRENT) USE OF ANTICOAGULANT 08/27/2018 CRISTINA MEADOWS MD Ot Z87.891 PERSONAL HISTORY OF NICOTINE DEPENDENCE 08/27/2018 CRISTINA MEADOWS MD Ot Z99.81 DEPENDENCE ON SUPPLEMENTAL OXYGEN 09/07/2018 LIZZ VIDAL APRN Ot E78.00 PURE HYPERCHOLESTEROLEMIA, UNSPECIFIED 09/07/2018 LIZZ VIDAL APRN Ot I10 ESSENTIAL (PRIMARY) HYPERTENSION 09/07/2018 LIZZ VIDAL APRN Ot I25.10 ATHSCL HEART DISEASE OF [place] CORONARY 09/07/2018 LIZZ VIDAL APRN Ot I27.20 PULMONARY HYPERTENSION, UNSPECIFIED 09/07/2018 LIZZ VIDAL APRN Ot I48.91 UNSPECIFIED ATRIAL FIBRILLATION 09/07/2018 LIZZ VIDAL APRN Ot I51.7 CARDIOMEGALY 09/07/2018 LIZZ VIDAL APRN Ot J44.9 CHRONIC OBSTRUCTIVE PULMONARY DISEASE, U 09/07/2018 LIZZ VIDAL APRN Ot R06.02 SHORTNESS OF BREATH 09/07/2018 LIZZ VIDAL APRN Ot Z79.01 TELEVISION CABLE INSTALLER (CURRENT) USE OF ANTICOAGULANT 09/07/2018 LIZZ VIDAL APRN Ot Z79.51 TELEVISION CABLE INSTALLER (CURRENT) USE OF INHALED STERO 09/07/2018 LIZZ VIDAL APRN Ot Z87.891 PERSONAL HISTORY OF NICOTINE DEPENDENCE 09/07/2018 LIZZ VIDAL APRN Ot Z99.81 DEPENDENCE ON SUPPLEMENTAL OXYGEN 09/10/2018 LIZZ VIDAL APRN Ot E78.00 PURE HYPERCHOLESTEROLEMIA, UNSPECIFIED 09/10/2018 LIZZ VIDAL APRN Ot I10 ESSENTIAL (PRIMARY) HYPERTENSION 09/10/2018 LIZZ VIDAL APRN Ot I25.10 ATHSCL HEART DISEASE OF [place] CORONARY 09/10/2018 LIZZ VIDAL APRN Ot I27.20 PULMONARY HYPERTENSION, UNSPECIFIED 09/10/2018 LIZZ VIDAL APRN Ot I48.91 UNSPECIFIED ATRIAL FIBRILLATION 09/10/2018 LIZZ VIDAL APRN Ot I51.7 CARDIOMEGALY 09/10/2018 LIZZ VIDAL APRN Ot J44.9 CHRONIC OBSTRUCTIVE PULMONARY DISEASE, U 09/10/2018 LIZZ VIDAL APRN Ot R06.02 SHORTNESS OF BREATH 09/10/2018 LIZZ VIDAL APRN Ot Z79.01 TELEVISION CABLE INSTALLER (CURRENT) USE OF ANTICOAGULANT 09/10/2018 LIZZ VIDAL APRN Ot Z79.51 TELEVISION CABLE INSTALLER (CURRENT) USE OF INHALED STERO 09/10/2018 LIZZ VIDAL APRN Ot Z87.891 PERSONAL HISTORY OF NICOTINE DEPENDENCE 09/10/2018 LIZZ VIDAL APRN Ot Z99.81 DEPENDENCE ON SUPPLEMENTAL OXYGEN Procedures [...] NRG Measurement of body temperature 99.1 NRG Blood CBC with ordered manual differential panel - 08/24/18 11:50 Blood leukocytes automated count (number/volume) 7.6 10*3/uL 4.3-11.0 Blood erythrocytes automated count (number/volume) 5.40 10*6/uL 4.35-5.85 Venous blood hemoglobin measurement (mass/volume) 16.5 g/dL 13.3-17.7 Blood hematocrit (volume fraction) 54 % 40-54 Automated erythrocyte mean corpuscular volume 100 [foz_us] 80-99 Automated erythrocyte mean corpuscular hemoglobin (mass per erythrocyte) 31 pg 25-34 Automated erythrocyte mean corpuscular hemoglobin concentration measurement (mass/volume) 31 g/dL 32-36 Automated erythrocyte distribution width ratio 14.6 % 10.0- 14.5 Automated blood platelet count (count/volume) 95 10*3/uL 130- 400 Automated blood platelet mean volume measurement 11.3 [foz_us] 7.4-10.4 Automated blood neutrophils/100 leukocytes 74 % 42-75 Automated blood lymphocytes/100 leukocytes 17 % 12-44 Blood monocytes/100 leukocytes 12 % NRG Automated blood eosinophils/100 leukocytes 1 % 0-10 Automated blood basophils/100 leukocytes 0 % 0-10 Blood neutrophils automated count (number/volume) 5.6 10*3 1.8-7.8 Blood lymphocytes automated count (number/volume) 1.3 10*3 1.0-4.0 Blood monocytes automated count (number/volume) 0.6 10*3 0.0- 1.0 Automated eosinophil count 0.1 10*3/uL 0.0-0.3 Automated blood basophil count (count/volume) 0.0 10*3/uL 0.0-0.1 Manual blood segmented neutrophils/100 leukocytes 68 % NRG Manual blood lymphocytes/100 leukocytes 15 % NRG Manual eosinophils/100 leukocytes in nose 5 % NRG Manual blood basophils/100 leukocytes 0 % NRG Blood blood smear finding identification by light microscopy NO [facility] Comprehensive metabolic panel - 08/24/18 11:50 Serum or plasma sodium measurement (moles/volume) 145 mmol/L 135-145 Serum or plasma potassium measurement (moles/volume) 4.5 mmol/L 3.6-5.0 Serum or plasma chloride measurement (moles/volume) 95 mmol/L 98-107 Carbon dioxide 42 mmol/L 21-32 Serum or plasma anion gap determination (moles/volume) 8 mmol/L 5-14 Serum or plasma urea nitrogen measurement (mass/volume) 28 mg/dL 7-18 Serum or plasma creatinine measurement (mass/volume) 1.28 mg/dL 0.60-1.30 Serum or plasma urea nitrogen/creatinine mass ratio 22 NRG Serum or plasma creatinine measurement with calculation of estimated glomerular filtration rate 54 NRG Serum or plasma glucose measurement (mass/volume) 100 mg/dL 70-105 Serum or plasma calcium measurement (mass/volume) 9.4 mg/dL 8.5-10.1 Serum or plasma total bilirubin measurement (mass/volume) 0.9 mg/dL 0.1-1.0 Serum or plasma alkaline phosphatase measurement (enzymatic activity/volume) 68 U/L 40-136 Serum or plasma aspartate aminotransferase measurement (enzymatic activity/volume) 35 U/L 5-34 Serum or plasma alanine aminotransferase measurement (enzymatic activity/volume) 38 U/L 0-55 Serum or plasma protein measurement (mass/volume) 6.8 g/dL 6.4-8.2 Serum or plasma albumin measurement (mass/volume) 3.7 g/dL 3.2-4.5 CALCIUM CORRECTED 9.6 mg/dL 8.5-10.1 Serum or plasma troponin i.cardiac measurement (mass/volume) - 08/24/18 11:50 Serum or plasma troponin i.cardiac measurement (mass/volume) 0.035 ng/mL <0.028 Serum or plasma lithium measurement (moles/volume) - 08/24/18 11:50 BNP PT 390.9 pg/mL <100.0 Arterial blood gas measurement - 08/24/18 12:53 Blood pCO2 75 mm[Hg] 35-45 Blood pO2 82 mm[Hg] 79-93 Arterial blood bicarbonate measurement (moles/volume) 43 mmol/L 23-27 Arterial blood base excess by calculation 16.9 mmol/L -2.5-2.5 Arterial blood oxygen saturation measurement 97 % 94-100 * Inhaled oxygen flow rate 40% NRG Arterial blood pH measurement with patient temperature correction 7.37 7.37-7.43 Arterial blood carbon dioxide, total measurement (moles/volume) 45.6 mmol/L 21.0-31.0 Body site RRAD NRG Assessment of wrist artery patency prior to arterial puncture YES-POS NRG Setting of ventilation mode NO NRG Measurement of body temperature 97.1 NRG Arterial blood gas measurement - 09/01/18 11:11 Blood pCO2 62 mm[Hg] 35-45 Blood pO2 134 mm[Hg] 79-93 Arterial blood bicarbonate measurement (moles/volume) 36 mmol/L 23-27 Arterial blood base excess by calculation 10.9 mmol/L -2.5-2.5 Arterial blood oxygen saturation measurement 99 % 94-100 * Inhaled oxygen flow rate 6 L NRG Arterial blood pH measurement with patient temperature correction 7.39 7.37-7.43 Arterial blood carbon dioxide, total measurement (moles/volume) 38.3 mmol/L 21.0-31.0 Body site RT RAD NRG Assessment of wrist artery patency prior to arterial puncture YES-POS NRG Setting of ventilation mode NO NRG Measurement of body temperature 98.2 NRG Complete blood count (CBC) with automated white blood cell (WBC) differential - 09/01/18 11:30 Blood leukocytes automated count (number/volume) 10.8 10*3/uL 4.3-11.0 Blood erythrocytes automated count (number/volume) 5.07 10*6/uL 4.35-5.85 Venous blood hemoglobin measurement (mass/volume) 15.5 g/dL 13.3-17.7 Blood hematocrit (volume fraction) 50 % 40-54 Automated erythrocyte mean corpuscular volume 98 [foz_us] 80-99 Automated erythrocyte mean corpuscular hemoglobin (mass per erythrocyte) 31 pg 25-34 Automated erythrocyte mean corpuscular hemoglobin concentration measurement (mass/volume) 31 g/dL 32-36 Automated erythrocyte distribution width ratio 14.6 % 10.0- 14.5 Automated blood platelet count (count/volume) 86 10*3/uL 130- 400 Automated blood platelet mean volume measurement 10.7 [foz_us] 7.4-10.4 Automated blood neutrophils/100 leukocytes 83 % 42-75 Automated blood lymphocytes/100 leukocytes 8 % 12-44 Blood monocytes/100 leukocytes 8 % 0-12 Automated blood eosinophils/100 leukocytes 1 % 0-10 Automated blood basophils/100 leukocytes 0 % 0-10 Blood neutrophils automated count (number/volume) 9.0 10*3 1.8-7.8 Blood lymphocytes automated count (number/volume) 0.9 10*3 1.0-4.0 Blood monocytes automated count (number/volume) 0.9 10*3 0.0- 1.0 Automated eosinophil count 0.1 10*3/uL 0.0-0.3 Automated blood basophil count (count/volume) 0.0 10*3/uL 0.0-0.1 PT panel in platelet poor plasma by coagulation assay - 09/01/18 11:30 Prothrombin time (PT) in platelet poor plasma by coagulation assay 15.2 s 12.2-14.7 INR in platelet poor plasma or blood by coagulation assay 1.2 0.8-1.4 Activated partial thromboplastin time (aPTT) in platelet poor plasma bycoagulation assay - 09/01/18 11:30 Activated partial thromboplastin time (aPTT) in platelet poor plasma bycoagulation assay 35 s 24-35 Comprehensive metabolic panel - 09/01/18 11:30 Serum or plasma sodium measurement (moles/volume) 143 mmol/L 135-145 Serum or plasma potassium measurement (moles/volume) 4.5 mmol/L 3.6-5.0 Serum or plasma chloride measurement (moles/volume) 100 mmol/L 98-107 Carbon dioxide 34 mmol/L 21-32 Serum or plasma anion gap determination (moles/volume) 9 mmol/L 5-14 Serum or plasma urea nitrogen measurement (mass/volume) 22 mg/dL 7-18 Serum or plasma creatinine measurement (mass/volume) 0.81 mg/dL 0.60-1.30 Serum or plasma urea nitrogen/creatinine mass ratio 27 NRG Serum or plasma creatinine measurement with calculation of estimated glomerular filtration rate > NRG Serum or plasma glucose measurement (mass/volume) 102 mg/dL 70-105 Serum or plasma calcium measurement (mass/volume) 8.9 mg/dL 8.5-10.1 Serum or plasma total bilirubin measurement (mass/volume) 0.8 mg/dL 0.1-1.0 Serum or plasma alkaline phosphatase measurement (enzymatic activity/volume) 65 U/L 40-136 Serum or plasma aspartate aminotransferase measurement (enzymatic activity/volume) 22 U/L 5-34 Serum or plasma alanine aminotransferase measurement (enzymatic activity/volume) 32 U/L 0-55 Serum or plasma protein measurement (mass/volume) 5.7 g/dL 6.4-8.2 Serum or plasma albumin measurement (mass/volume) 3.1 g/dL 3.2-4.5 CALCIUM CORRECTED 9.6 mg/dL 8.5-10.1 Magnesium - 09/01/18 11:30 Magnesium 1.9 mg/dL 1.8-2.4 Serum or plasma troponin i.cardiac measurement (mass/volume) - 09/01/18 11:30 Serum or plasma troponin i.cardiac measurement (mass/volume) 0.037 ng/mL <0.028 Myoglobin, serum - 09/01/18 11:30 Myoglobin, serum 67.3 ng/mL 10.0-92.0 Arterial blood gas measurement - 09/18/18 17:30 Blood pCO2 66 mm[Hg] 35-45 Blood pO2 68 mm[Hg] 79-93 Arterial blood bicarbonate measurement (moles/volume) 39 mmol/L 23-27 Arterial blood base excess by calculation 13.1 mmol/L -2.5-2.5 Arterial blood oxygen saturation measurement 95 % 94-100 * Inhaled oxygen flow rate 4L NRG Arterial blood pH measurement with patient temperature correction 7.39 7.37-7.43 Arterial blood carbon dioxide, total measurement (moles/volume) 40.7 mmol/L 21.0-31.0 Body site R RAD NRG Assessment of wrist artery patency prior to arterial puncture YES-POS NRG Setting of ventilation mode NO NRG Measurement of body temperature 98.6 NRG Automated blood complete blood count (hemogram) panel - 09/18/18 17:32 Blood leukocytes automated count (number/volume) 5.3 10*3/uL 4.3-11.0 Blood erythrocytes automated count (number/volume) 4.70 10*6/uL 4.35-5.85 Venous blood hemoglobin measurement (mass/volume) 14.2 g/dL 13.3-17.7 Blood hematocrit (volume fraction) 47 % 40-54 Automated erythrocyte mean corpuscular volume 100 [foz_us] 80-99 Automated erythrocyte mean corpuscular hemoglobin (mass per erythrocyte) 30 pg 25-34 Automated erythrocyte mean corpuscular hemoglobin concentration measurement (mass/volume) 30 g/dL 32-36 Automated erythrocyte distribution width ratio 13.9 % 10.0- 14.5 Automated blood platelet count (count/volume) 127 10*3/uL 130-400 Automated blood platelet mean volume measurement 10.2 [foz_us] 7.4-10.4 Comprehensive metabolic panel - 09/18/18 17:32 Serum or plasma sodium measurement (moles/volume) 143 mmol/L 135-145 Serum or plasma potassium measurement (moles/volume) 4.3 mmol/L 3.6-5.0 Serum or plasma chloride measurement (moles/volume) 97 mmol/L 98-107 Carbon dioxide 39 mmol/L 21-32 Serum or plasma anion gap determination (moles/volume) 7 mmol/L 5-14 Serum or plasma urea nitrogen measurement (mass/volume) 20 mg/dL 7-18 Serum or plasma creatinine measurement (mass/volume) 0.95 mg/dL 0.60-1.30 Serum or plasma urea nitrogen/creatinine mass ratio 21 NRG Serum or plasma creatinine measurement with calculation of estimated glomerular filtration rate > NRG Serum or plasma glucose measurement (mass/volume) 91 mg/dL 70-105 Serum or plasma calcium measurement (mass/volume) 9.1 mg/dL 8.5-10.1 Serum or plasma total bilirubin measurement (mass/volume) 0.6 mg/dL 0.1-1.0 Serum or plasma alkaline phosphatase measurement (enzymatic activity/volume) 65 U/L 40-136 Serum or plasma aspartate aminotransferase measurement (enzymatic activity/volume) 26 U/L 5-34 Serum or plasma alanine aminotransferase measurement (enzymatic activity/volume) 18 U/L 0-55 Serum or plasma protein measurement (mass/volume) 5.9 g/dL 6.4-8.2 Serum or plasma albumin measurement (mass/volume) 3.2 g/dL 3.2-4.5 CALCIUM CORRECTED 9.7 mg/dL 8.5-10.1 DIGOXIN - 09/18/18 17:32 DIGOXIN < 0.30 0.80-2.00 Encounters ACCT No. Visit Date/Time Discharge Status Pt. Type Provider Facility Loc./Unit Complaint [id number] 09/01/2018 10:40:00 09/01/2018 13:55:00 DIS Outpatient LIZZ VIDAL APRN Via [facility] ER SOA [id number] 08/24/2018 14:09:00 08/27/2018 11:25:00 DIS Outpatient CRISTINA MEADOWS MD [facility] 4TH ACUTE CHRONIC RESP FAILURE;HYPERCAPNIA [id number] 08/19/2018 14:34:00 08/19/2018 18:18:00 DIS Emergency NILS KWONG, KATHIE Sharp [facility] ER SOA [id number] 05/10/2018 10:33:00 05/10/2018 23:59:59 CLS Outpatient ANTOLIN PEARL MD [facility] CARD AF, CHF, COPD, CAD [id number] 03/08/2018 00:10:00 03/08/2018 23:59:59 CLS Preadmit CRISTINA MEADOWS MD [facility] SDC POLYCYTHEMIA [id number] 12/07/2017 13:23:00 03/07/2018 00:01:00 DIS Outpatient CRISTIAN MEADOWS MD [facility] POLYCYTHEMIA [id number] 11/09/2017 09:52:00 11/27/2017 00:01:00 DIS Outpatient CRISTINA MEADOWS MD [facility] POLYCYTHEMIA [id number] 11/23/2017 18:29:00 11/23/2017 19:44:00 DIS Emergency MARIELA TERRY MD [facility] ER SOMETHING IN R EYE [id number] 10/10/2017 09:47:00 11/01/2017 00:01:00 DIS Outpatient CRISTINA MEADOWS MD [facility] POLYCYTHEMIA [id number] 07/06/2017 09:50:00 07/12/2017 00:01:00 DIS Outpatient CRISTINA MEADOWS MD [facility] POLYCYTHEMIA [id number] 03/16/2017 09:45:00 03/20/2017 00:01:00 DIS Outpatient CRISTINA MEADOWS MD [facility] POLYCYTHEMIA [id number] 01/17/2017 20:50:00 01/17/2017 23:03:00 DIS Emergency CRISTY ANAND [facility] ER L SHOULDER INJ [id number] 11/18/2016 09:43:00 11/27/2016 00:01:00 DIS Outpatient CRISTINA MEADOWS MD [facility] POLYCYTHEMIA [id number] 10/22/2016 08:50:00 10/22/2016 13:05:00 DIS Outpatient CRISTINA MEADOWS MD [facility] ENDO TERESA OCCULT POS/BLOOD IN STOOL [id number] 10/20/2016 06:11:00 10/20/2016 09:55:00 DIS Outpatient CRISTINA MEADOWS MD [facility] PREOP OCCULT + BLOOD IN STOOL [id number] 08/25/2016 12:50:00 09/13/2016 00:01:00 DIS Outpatient CRISTINA MEADOWS MD [facility] POLYCYTHEMIA [id number] 06/09/2016 07:00:00 06/09/2016 15:38:00 DIS Outpatient ANTOLIN PEARL MD [facility] CATH ABN STRESS TEST [id number] 06/02/2016 07:22:00 06/02/2016 23:59:59 CLS Outpatient ANTOLIN PEARL MD [facility] CARD AF,CAD,CHF,HTN,MIXED HYPERLIPIDEMIA, I48.0 [id number] 05/24/2016 12:26:00 05/24/2016 23:59:59 CLS Outpatient ANTOLIN PEARL MD [facility] CARD AF,CAD [id number] 11/17/2015 08:15:00 11/17/2015 23:59:59 CLS Preadmit ANGELA ESTEBAN MD [facility] COPD WITH ACUTE EXACERBATION [id number] 11/04/2015 08:00:00 11/16/2015 00:01:00 DIS Outpatient ANGELA ESTEBAN MD [facility] COPD WITH ACUTE EXACERBATION [id number] 08/27/2013 09:24:00 10/07/2013 00:01:00 DIS Outpatient CRISTINA MEADOWS MD [facility] LAB COUMEDIN THERAPY,COPD,A FIB, ELEVATED DIG LEVEL [id number] 08/27/2013 09:21:00 08/27/2013 23:59:59 CLS Outpatient CRISTINA MEADOWS MD [facility] LAB [id number] 07/24/2013 07:56:00 07/24/2013 23:59:59 CLS Outpatient ANTOLIN PEARL MD [facility] LAB AF,CAD,CHF,COPD,HTN,HYPERLIPIDEMIA [id number] 06/08/2013 13:03:00 07/05/2013 00:01:00 DIS Outpatient CRISTINA MEADOWS MD [facility] LAB COUMEDIN THERAPY,COPD,A FIB, ELEVATED DIG LEVEL [id number] 06/05/2013 11:19:00 06/05/2013 23:59:59 CLS Outpatient ANTOLIN PEARL MD [facility] RAD AFIB,CAD,CHF,COPD [id number] 05/04/2013 13:05:00 05/04/2013 23:59:59 CLS Outpatient ANTOLIN PEARL MD [facility] CARD AFIB,CAD,CHF,COPD [id number] 03/21/2013 13:37:00 04/02/2013 00:01:00 DIS Outpatient CRISTINA MEADOWS MD [facility] LAB COUMEDIN THERAPY,COPD,A FIB, ELEVATED DIG LEVEL [id number] 11/17/2012 09:55:00 02/15/2013 00:01:00 DIS Outpatient ANGELA ESTEBAN MD A [facility] SDC EXACERBATION ASTHMA [id number] 01/03/2013 09:07:00 01/03/2013 23:59:59 CLS Outpatient ANTOLIN PEARL MD [facility] LAB CAD,HYPERLIPIDEMIA [id number] 12/01/2012 09:04:00 12/21/2012 00:01:00 DIS Outpatient CRISTINA MEADOWS MD [facility] LAB COUMEDIN THERAPY,COPD,A FIB, ELEVATED DIG LEVEL [id number] 11/03/2012 09:52:00 12/21/2012 00:01:00 DIS Outpatient CARLITO KWONG, ANGELA A [facility] ONC [id number] 06/20/2012 09:43:00 09/12/2012 00:01:00 DIS Outpatient CRISTINA MEADOWS MD [facility] LAB COUMEDIN THERAPY,COPD,A FIB, ELEVATED DIG LEVEL [id number] 07/12/2012 09:06:00 07/12/2012 23:59:59 CLS Outpatient KRISTIN FISH [facility] LAB CAD, HYPERLIPIDEMIA [id number] 09/18/2018 17:51:00 Document Registration [id number] 11/22/2014 08:17:00 Document Registration [id number] 11/22/2014 08:17:00 Document Registration [id number] 11/22/2014 08:17:00 Document Registration [id number] 11/22/2014 08:17:00 Document Registration [id number] 11/22/2014 08:17:00 Document Registration [id number] 11/22/2014 08:17:00 Document Registration [id number] 11/22/2014 08:17:00 Document Registration [id number] 11/22/2014 08:17:00 Document Registration [id number] 11/22/2014 08:17:00 Document Registration [id number] 11/22/2014 08:17:00 Document Registration [id number] 11/22/2014 08:17:00 Document Registration [id number] 11/22/2014 08:17:00 Document Registration [id number] 01/09/2014 12:29:00 Document Registration [id number] 02/16/2013 00:00:00 Document Registration [id number] 12/22/2012 00:00:00 Document Registration [id number] 05/31/2012 13:47:00 Document Registration [id number] 01/12/2012 08:34:00 Document Registration [id number] 10/29/2011 08:40:00 Document Registration [id number] 09/21/2011 10:26:00 Document Registration [id number] 07/06/2011 09:33:00 Document Registration [id number] 06/22/2011 12:44:00 Document Registration [id number] 06/10/2011 10:00:00 Document Registration [id number] 05/11/2011 11:13:00 Document Registration [id number] 05/01/2011 07:53:00 Document Registration [id number] 04/27/2011 07:47:00 Document Registration [id number] 04/19/2011 13:10:00 Document Registration [id number] 03/18/2011 16:06:00 Document Registration [id number] 03/08/2011 14:18:00 Document Registration [id number] 03/08/2011 12:38:00 Document Registration [id number] 02/23/2011 10:10:00 Document Registration [id number] 02/23/2011 10:04:00 Document Registration [id number] 02/11/2011 11:53:00 Document Registration [id number] 01/04/2011 08:53:00 Document Registration [id number] 01/04/2011 08:46:00 Document Registration [id number] 10/05/2010 07:55:00 Document Registration [id number] 08/19/2010 09:05:00 Document Registration [id number] 03/20/2010 10:49:00 Document Registration [id number] 01/28/2010 10:30:00 Document Registration [id number] 10/20/2009 09:24:00 Document Registration [id number] 09/09/2009 21:36:00 Document Registration [id number] 09/06/2009 16:00:00 Document Registration [id number] 07/11/2009 13:20:00 Document Registration [id number] 06/21/2009 10:41:00 Document Registration [id number] 01/09/2014 10:03:43 ACT Document Registration
[2018-09-19 04:00] VITALS: BP 105/58
[2018-09-19] MEDS: CATHETER FLUSH 10 ML SYR IV SCH (06:30)
[2018-09-19 08:00] VITALS: BP 123/81
[2018-09-19] MEDS ORDERED: ANORO ELLIPTA PO SCH (08:00)
[2018-09-19] MEDS ORDERED: DILTIAZEM 180 MG (CARDIZEM CD) CAP PO SCH (09:00)
[2018-09-19] MEDS ORDERED: meTOprolol SUCCINATE 100 MG (TOPROL XL) TAB PO SCH (09:00)
[2018-09-19] MEDS ORDERED: ROFLUMILAST 500 MCG TAB (DALIRESP) PO SCH (09:00)
[2018-09-19] MEDS ORDERED: DIGOXIN 0.125 MG (LANOXIN) TAB PO SCH (09:00)
--- NOTE | 2018-09-19 09:03 | NUR ---
PALLIATIVE CARE RN has attempted to contact [facility] this morning due to noting by nursing that Dr. Rolle has arranged for the patient to be admitted to them today. It is noted that he is comfort care bu nursing. Will make arrangements for this and hospice if needed once I am clear what the physician's intent is.
[2018-09-19] MEDS: APIXABAN 5 MG (ELIQUIS) TABLET PO SCH (09:32)
[2018-09-19] MEDS ORDERED: MORP100S3 PO (10:04)
[2018-09-19] MEDS ORDERED: ACET325C5 PO (10:04)
[2018-09-19] MEDS ORDERED: LORA0.5T PO (10:04)
--- NOTE | 2018-09-19 10:08 | Discharge Inst-Skilled Nursing ---
Discharge Inst-Skilled NF Consult/Follow Up/Orders Skilled NF Admit to: [facility] [place] [facility] Certification (SNF) I certify that SNF services are required to be given on an inpatient basis because of the above named patient's need for [place] [facility] care on a continuing basis for the conditions(s) for which he/she was receiving inpatient hospital services prior to his/her transfer to the SNF. Prison Facility Order: Nursing Services, Assistant Education Director-Evaluate & Treat, Physical Therapy-Evaluate & Treat Oxygen Delivery Method: Nasal Cannula Oxygen Flow Rate L/min (Range): 3l Discharge Diet: No Restrictions Daily Activity as Tolerated: Yes (oxygen 3l at rest and 6l with exertion/physical therapy) New & Resume Previous Orders Cristina Meadows Sep 19, 2018 10:06 CRISTINA MEADOWS MD Sep 19, 2018 10:08
--- NOTE | 2018-09-19 10:50 | Short Stay Summary-Hospitalist ---
History of Present Illness HPI/Chief Complaint The patient is an 78-year-old white male with known chronic hypercapnic respiratory failure who reports significant increase in dyspnea on exertion with anxiety and sense of impending doom. He denies chest pain pressure cough or any significant sputum production. He also has a history of chronic atrial fibrillation but has not been aware of any heart racing sensation. He denied orthopnea PND or pedal edema but stated that he is no longer able to care for himself. He lives alone at home. His was recently diagnosed with acute kidney disease the point of needing dialysis and required halfway admission for this reason and current significant deconditioning. Mr. Jones is had several emergency room visits and several hospitalizations this year for similar complaints. In the office he appeared to be anxious and in acute distress walking 40 feet in the exam room left him quite short of breath with an oxygen saturation on 3 L of 82 percent. After several minutes he came up to 88 percent. Date Seen 09/19/18 Time Seen by a Provider: 10:00 Attending Physician Les Hennessy MD PCP Cristina Rolle MD Referring Physician Date of Admission Sep 18, 2018 at 16:57 Home Medications & Allergies Home Medications Reviewed patient Home Medication Reconciliation performed by pharmacy medication reconciliations automation control technician and/or nursing. Patients Allergies have been reviewed. Allergies Allergies Coded Allergies No Known Drug Allergies (Unverified09/18/18) Past Jztqyqc-Ivmlsh-Uybruh Hx Past Med/Social Hx: Reviewed and Corrections made Patient Social History Alcohol Use: Denies Use Recreational Drug Use: No Former Smoker, Quit: Jun 10, 2007 Type Used: Cigarettes 2nd Hand Smoke Exposure: No Physical Abuse Screen: No Sexual Abuse: No Recent Foreign Travel: No Contact w/other who traveled: No Recent Hopitalizations: No Recent Infectious Disease Expo: No Immunizations Up To Date Tetanus Booster (TDap): Unknown Pediatric: No Date of Pneumonia Vaccine: Dec 08, 2015 Date of Influenza Vaccine: Dec 08, 2015 Seasonal Allergies Seasonal Allergies: Yes Past Medical History Currently Using CPAP: Yes Currently Using BIPAP: Yes Cardiac: Atrial Fibrillation, Cardiomyopathy, Coronary Artery Disease, High Cholesterol, Hypertension, Irregular Heartbeat, Valvular Heart Disease Reproductive: No Sexually Transmitted Disease: No HIV/AIDS: No Are Your Blood Sugars Over 250: No Loss of Vision: Bilateral Hearing Impairment: Denies History of Blood Disorders: Yes (POLYCYTHEMIA) Adverse Reaction to Blood Miller: No Family History Patient reports no known family medical history. Review of Systems Constitutional: no symptoms reported, see HPI Respiratory: see HPI; No cough; dyspnea on exertion; No hemoptysis, No orthopnea, No phlegm; short of breath; No stridor, No wheezing, No other Cardiovascular: see HPI Physical Exam Physical Exam Vital Signs Vital Signs - First Documented 09/18/18 09/18/18 09/18/18 17:27 17:30 17:47 Temp 99.0 Pulse 76 Resp 18 B/P (MAP) 129/83 Pulse Ox 96 O2 Delivery Nasal Cannula O2 Flow Rate 4.00 Capillary Refill : Height, Weight, BMI Height: 5'9.00" Weight: 170lbs. 7.0oz. 77.547182fj; 25.4 BMI Method:Stated General Appearance: Anxious, Moderate Distress HEENT: PERRL/EOMI, TMs Normal, Normal ENT Inspection, Pharynx Normal Neck: Normal Inspection, JVD (Not appreciated) Respiratory: Chest Non Tender, Accessory Muscle Use, Other (With exertion he exhibited accessory muscle use after 5 minutes of restless subsided it significantly diminished breath sounds posteriorly with hyperresonance to percussion no dullness appreciated no wheezing rales or rhonchi noted. Anterior lead breath sounds were clear) Cardiovascular: No Edema, No Gallop, No JVD, No Murmur, Normal Peripheral Pulses, Irregularly Irregular Gastrointestinal: Normal Bowel Sounds, No Organomegaly, No Pulsatile Mass, Non Tender, Soft Extremity: Normal Capillary Refill, Normal Inspection, Normal Range of Motion, Non Tender, No Calf Tenderness, No Pedal Edema Skin: Pallor Results Results/Procedures Labs Laboratory Tests 09/18/18 17:32 Patient resulted labs reviewed. Short Stay Diagnosis Discharge Diagnosis-Short Stay Admission Diagnosis A/P 1. Acute on chronic hypercapnic respiratory failure. 2. Deconditioning. 3. COPD the cause of number 1. 4. Situational anxiety secondary to dyspnea number 1 and living alone at home. 5. Failure to thrive secondary to number 1. 6. Chronic atrial fibrillation. Final Discharge Diagnosis Same as admission. Conclusion Plan Patient was admitted due to his failure to thrive and sense of impending doom with exacerbation of hypercapnic respiratory failure. He was set up for halfway admission and expect that he will benefit from physical therapy essentially pulmonary rehabilitation. Laboratory evaluation including CBC reveals stable thrombocytopenia otherwise unremarkable and ABG revealed a pH of 7.39 with PCO2 in the upper 60s and a PaO2 in the upper 60s on 3 L. The patient does have desaturation with exercise so we'll increase his oxygen to 6 L with physical activity and then back to 3 L at rest. He does have a history of sleep apnea as well and will continue nighttime CPAP therapy in addition to his oxygen. Poor air hunger after discussion we did discuss when necessary Roxanol and for anxiet y when necessary lorazepam. The patient states that at this point comfort as his major issue and he wishes to continue DO NOT RESUSCITATE status for which the appropriate paperwork should be filled out. I will plan on seeing him for follow-up in one week at [facility] who have excepted him. Clinical Quality Measures DVT/VTE Risk/Contraindication: Risk Factor Score Per Nursin RFS Level Per Nursing on Admit: 4+=Very High CRISTINA ROLLE MD Sep 19, 2018 10:50
--- NOTE | 2018-09-19 11:17 | Physical Therapy Progress Note ---
Therapy Progress Note Pt to discharge to SNF this date. MARTELL LIMON PT Sep 19, 2018 11:17
--- NOTE | 2018-09-19 11:37 | Occ Therapy Progress Note ---
Therapy Progress Note OT eval not completed - pt to discharge to SNF today. JOSIAH GOMEZ OT Sep 19, 2018 11:37
--- NOTE | 2018-09-19 13:15 | NUR ---
report given to kimberly CLIFTON at [facility]
--- NOTE | 2018-09-19 13:32 | NUR ---
left floor with staff and transport from [facility]
--- NOTE | 2018-09-19 15:44 | NUR ---
CM/SS, respond to referral for emergency community skilled nursing placement, finalized with [facility] for correction and therapies. Patient resides at home alone at this time because his spouse has permanent placement with [facility] for multiple health issues, including dialysis. Patient indicates he wanted to be placed there but that they had no beds. Dr. Rolle's office made all initial referrals and arrangements but apparently due to patient's insurance the preauthorization did not arrive timely for admit yesterday. Patient describes he did not fully recover from his recent hospital stay late July, and he just kept deteriorating to the point he was too short of air to do even minimal activity. Upon arrival to physician office for assessment, it was determined he would need a 24-7 care environment. Patient does wish to return home if at all possible. If not, he may be a good candidate for assisted living since before his recent acute illness he was doing all inside tasks like cooking, dishes, laundry. His daughter has taken over yard care. Patient is on continuous O2, increased liter flow for now. His daughter and mother in law reside within a few block area near him in [place]. He indicates strong family support. Patient circumstances qualified for emergency admission to SNF, [facility] will submit case to [facility] regarding CARE Assessment.
== END 2018-09-19 13:32 | DRG 189 ==
LOC: OBSVTOIN 16:57 → 4TH 16:57
PROVIDERS: ADMIT Internal Medicine; ATTEND Internal Medicine
DX: J96.22 Acute and chronic respiratory failure with hypercapnia (principal); I42.9 Cardiomyopathy, unspecified; J44.9 Chronic obstructive pulmonary disease, unspecified; I48.2 Chronic atrial fibrillation; I38 Endocarditis, valve unspecified; F41.9 Anxiety disorder, unspecified; I25.10 Atherosclerotic heart disease of native coronary artery without angina pectoris; Z66 Do not resuscitate; E78.00 Pure hypercholesterolemia, unspecified; I10 Essential (primary) hypertension; D75.1 Secondary polycythemia; R62.7 Adult failure to thrive; G47.30 Sleep apnea, unspecified; Z87.891 Personal history of nicotine dependence
CPT/HCPCS: 36415; 80053; 80162; 82805; 85027; 94640; 94760

== ENCOUNTER 2018-10-12 11:42 | Inpatient (IN) | payer MEDICAID, MEDICARE ==
[~2018-10-12] VITALS: Ht 175.3 cm; Wt 77.3 kg
[~2018-10-12 11:42] MED LIST changes: +ACET325C5 PO; -FLUT16SP22 NSEACH; +LORA0.5T PO; +MORP100S3 PO; -ROSU20TA31 PO; +ROSU20TA32 PO; -UMEC1BLS IH; +UMEC1BLS INH
--- NOTE | 2018-10-12 11:56 | ED Dyspnea ---
General Stated Complaint: AMS Source of Information: EMS Exam Limitations: No Limitations History of Present Illness Date Seen by Provider: Oct 12, 2018 Time Seen by Provider: 11:52 Initial Comments To ER per EMS from [facility] with reports of respiratory distress. He was doing fine this morning, ambulated to breakfast without diffi culty. At about 10 AM they noticed him to have increased respiratory effort, just prior to calling 911 they transitioned him from his 3 liters per nasal cannula oxygen which he wears around the clock to a C Pap 5 L with subsequent reduction in oxygen saturation to 77%. EMS arrived, switched to their C Pap machine and oxygen saturation increased to 96%. Tachycardic at 122 with a known history of atrial fibrillation. Minimally responsive, only responsive to painful stimuli. Do not resuscitate status. Saw Dr Rolle yesterday or the day before and was given rx for antibiotic. Timing/Duration: 1-3 Hours Severity: Severe Activities at Onset: None Associated Symptoms: Wheezing Allergies and Home Medications Allergies Coded Allergies: No Known Drug Allergies (Unverified , 09/18/18) Home Medications Acetaminophen 325 Mg Capsule, 325 MG PO Q6H Prescribed by: CRISTINA ROLLE on 09/19/18 1004 Albuterol Sulfate 2.5 Mg/0.5 Ml Vial.neb, 2.5 MG INH Q4H PRN for SHORTNESS OF BREATH, (Reported) Apixaban 5 Mg Tablet, 5 MG PO BID, (Reported) Digoxin 125 Mcg Tablet, 125 MCG PO DAILY, (Reported) Diltiazem HCl 120 Mg Cap.er.24h, 120 MG PO DAILY, (Reported) Fluticasone Propionate 16 Gm Cougar.susp, 1-2 SPRAYS NSEACH BID PRN for ALLERGIES, (Reported) Furosemide 40 Mg Tablet, 40 MG PO MoTuWe, (Reported) Lorazepam 0.5 Mg Tablet, 0.5 MG PO Q8H PRN for ANXIETY Prescribed by: CRISTINA ROLLE on 09/19/18 1004 Melatonin 10 Mg Tab.mphase, 30 MG PO HS, (Reported) Metoprolol Succinate 100 Mg Tab.er.24h, 100 MG PO DAILY, (Reported) Montelukast Sodium 10 Mg Tablet, 10 MG PO DAILY, (Reported) Morphine Sulfate 100 Mg/5 Ml Solution, 10 MG PO Q2H PRN for AIR HUNGER Prescribed by: CRISTINA ROLLE on 09/19/18 1004 Multivitamin/Iron/Folic Acid 1 Each Tablet, 1 TAB PO DAILY, (Reported) Crisfield-3 Fatty Acids/Fish Oil 1 Each Capsule, 2,400 MG PO DAILY, (Reported) TAKES 2 (1,200 MG) CAPSULES Roflumilast 500 Mcg Tablet, 500 MCG PO DAILY, (Reported) Rosuvastatin Calcium 20 Mg Tablet, 20 MG PO DAILY, (Reported) Umeclidinium Brm/Vilanterol Tr 1 Each Blst.w.dev, 1 PUFF IH DAILY, (Reported) Patient Home Medication List Home Medication List Reviewed: Yes Review of Systems Review of Systems Constitutional: see HPI, other (unable to obtain review of systems due to clinical condition) Past Tbgjlbl-Bdicwa-Qknkzo Hx Patient Social History Type Used: Cigarettes Former Smoker, Quit: Jun 10, 2007 2nd Hand Smoke Exposure: No Recent Hopitalizations: No Immunizations Up To Date Tetanus Booster (TDap): Unknown PED Vaccines UTD: No Date of Pneumonia Vaccine: Dec 08, 2015 Date of Influenza Vaccine: Dec 08, 2015 Seasonal Allergies Seasonal Allergies: Yes Past Medical History Surgeries: Yes (I&D, [employer] GANGR[employer]) Respiratory: Yes (2L O2 NC) COPD Currently Using CPAP: Yes Currently Using BIPAP: Yes Cardiac: Yes (CARDIOMYOPATHY WAS IN A-FIB JUNE 2009, pulmonary hypertension) Atrial Fibrillation, Cardiomyopathy, Coronary Artery Disease, High Cholesterol, Hypertension, Irregular Heartbeat, Valvular Heart Disease Neurological: No Reproductive Disorders: No Sexually Transmitted Disease: No HIV/AIDS: No Genitourinary: No Gastrointestinal: No Musculoskeletal: No Endocrine: No HEENT: Yes Loss of Vision: Bilateral Hearing Impairment: Denies Cancer: No Psychosocial: No Integumentary: No Blood Disorders: Yes (POLYCYTHEMIA) Adverse Reaction/Blood Tranf: No Family Medical History Patient reports no known family medical history. Physical Exam Vital Signs Vital Signs - First Documented 10/12/18 10/12/18 11:45 12:12 Temp 97.6 Pulse 117 Resp 20 B/P (MAP) 119/92 (101) Pulse Ox 100 O2 Delivery NIV/Bilevel O2 Flow Rate 50.00 Capillary Refill : Height, Weight, BMI Height: 5'9.00" Weight: 170lbs. 7.0oz. 77.693135mg; 25.4 BMI Method:Stated General Appearance: Moderate Distress (responsive only to painful stimuli, he moans in response to this. He is on BiPAP. Oxygen saturation 97% at 100% FiO2.) HEENT: PERRL/EOMI, TMs Normal Neck: Full Range of Motion, Normal Inspection Respiratory: Decreased Breath Sounds, Wheezing Cardiovascular: Normal Peripheral Pulses, Irregularly Irregular Gastrointestinal: Non Tender, Soft Neurologic/Psychiatric: Other (as above) Skin: Normal Color, Warm/Dry Progress/Results/Core Measures Results/Orders Lab Results Laboratory Tests Test 10/12/18 11:50 10/12/18 11:58 Range/Units White Blood Count 8.9 4.3-11.0 10^3/uL Red Blood Count 5.38 4.35-5.85 10^6/uL Hemoglobin 16.0 13.3-17.7 G/DL Hematocrit 55 H 40-54 % Mean Corpuscular Volume 102 H 80-99 FL Mean Corpuscular Hemoglobin 30 25-34 PG Mean Corpuscular Hemoglobin Concent 29 L 32-36 G/DL Red Cell Distribution Width 14.5 10.0-14.5 % Platelet Count 136 130-400 10^3/uL Mean Platelet Volume 9.9 7.4-10.4 FL Neutrophils (%) (Auto) 74 42-75 % Lymphocytes (%) (Auto) 14 12-44 % Monocytes (%) (Auto) 12 0-12 % Eosinophils (%) (Auto) 1 0-10 % Basophils (%) (Auto) 0 0-10 % Neutrophils # (Auto) 6.5 1.8-7.8 X 10^3 Lymphocytes # (Auto) 1.2 1.0-4.0 X 10^3 Monocytes # (Auto) 1.1 H 0.0-1.0 X 10^3 Eosinophils # (Auto) 0.0 0.0-0.3 10^3/uL Basophils # (Auto) 0.0 0.0-0.1 10^3/uL Sodium Level 145 135-145 MMOL/L Potassium Level 4.1 3.6-5.0 MMOL/L Chloride Level 94 L 98-107 MMOL/L Carbon Dioxide Level 38 H 21-32 MMOL/L Anion Gap 13 5-14 MMOL/L Blood Urea Nitrogen 23 H 7-18 MG/DL Creatinine 1.25 0.60-1.30 MG/DL Estimat Glomerular Filtration Rate 56 BUN/Creatinine Ratio 18 Glucose Level 162 H 70-105 MG/DL Calcium Level 9.6 8.5-10.1 MG/DL Corrected Calcium 10.0 8.5-10.1 MG/DL Total Bilirubin 0.9 0.1-1.0 MG/DL Aspartate Amino Transf (AST/SGOT) 24 5-34 U/L Alanine Aminotransferase (ALT/SGPT) 23 0-55 U/L Alkaline Phosphatase 113 40-136 U/L Total Protein 7.6 6.4-8.2 GM/DL Albumin 3.5 3.2-4.5 GM/DL Blood Gas Puncture Site NA Blood Gas Patient Temperature 97.6 Arterial Blood pH 7.18 *L 7.37-7.43 Arterial Blood Partial Pressure CO2 122 *H 35-45 MMHG Arterial Blood Partial Pressure O2 104 H 79-93 MMHG Arterial Blood HCO3 44 *H 23-27 MMOL/L Arterial Blood Total CO2 47.5 H 21.0-31.0 MMOL/L Arterial Blood Oxygen Saturation 97 94-100 % Arterial Blood Base Excess 14.9 H -2.5-2.5 MMOL/L Kwesi Test NA Blood Gas Ventilator Setting NO Blood Gas Inspired Oxygen 50% My Orders Orders - LIZZ VIDAL INBOUND CALL CENTER REPRESENTATIVE Cbc With Automated Diff (10/12/18 11:50) Comprehensive Metabolic Panel (10/12/18 11:50) Ekg Tracing (10/12/18 11:50) Chest 1 View, Ap/Pa Only (10/12/18 11:50) Ed Iv/Invasive Line Start (10/12/18 11:50) Bipap (Bilevel) Set Up (10/12/18 11:50) Albuterol/Ipra Inhalation Soln (Duoneb I (10/12/18 12:00) Svn Small Volume Nebulizer (10/12/18 11:56) Arterial Blood Gas (10/12/18 12:03) Vital Cath (10/12/18 12:13) Arterial Blood Draw (10/12/18 ) Blood Culture (10/12/18 12:31) Lactic Acid Analyzer (10/12/18 12:31) Piperacillin/Tazobactam (Bulk) (Zosyn In (10/12/18 12:45) Palliative Care Consult (10/12/18 12:31) Medications Given in ED Current Medications Medications Dose Ordered Sig/Mayito Route Start Time Stop Time Status Last Admin Dose Admin Albuterol/ Ipratropium 3 ml ONCE ONCE INH 10/12/18 12:00 10/12/18 12:01 DC 10/12/18 12:11 3 ML Vital Signs/I&O 10/12/18 10/12/18 11:45 12:12 Temp 97.6 Pulse 117 112 Resp 20 12 B/P (MAP) 119/92 (101) Pulse Ox 100 97 O2 Delivery NIV/Bilevel O2 Flow Rate 50.00 Diagnostic Imaging Diagonstic Imaging: Xray Comments NAME: COOPER MARTINEZ [facility] REC#: [id number] PT STATUS: REG ER : 1940 PHYSICIAN: LIZZ VIDAL APRN ADMIT DATE: 10/12/18/ER Draft Date of Exam:10/12/18 CHEST 1 VIEW, AP/PA ONLY Indication: Altered mental status. Time of exam: 12:03 PM Correlation is made with prior chest from 09/01/2018. Heart size is stable. Minimal elevation of the left hemidiaphragm is noted, similar to prior study. Appears to be some minimal infiltrate or atelectasis in the right base. Otherwise lungs are clear. There is no evidence of congestive failure. No effusion or pneumothorax is seen. Impression: Minimal right basilar infiltrate or atelectasis. Dictated on workstation # [id number] Dict: 10/12/18 1214 Trans: 10/12/18 1218 CVB [id number] Interpreted by: ADITYA MAHONEY MD Electronically signed by: Departure Communication (Admissions) Time/Spoke to Admitting Phy: 12:[address] Rolle, we'll admit on comfort care. We will however handy nue to use BiPAP for the time being, Zosyn and steroids for the time being. Admit to medical, DO NOT RESUSCITATE and DO NOT INTUBATE status. I spoke with the patient's daughter and advised her that she should in fact leave work leave work to come see her father and a poor prognosis that he has. She agrees and will be in route 1206-BiPAP settings 15/5, 50% FiO2. Impression Primary Impression: acute on chronic respiratory failure, hypercapnia Disposition: ADMITTED INPATIENT Condition: Improved Admissions Decision to Admit Reason: Admit from ER (General) Decision to Admit/Date: Oct 12, 2018 Time/Decision to Admit Time: 12:37 Departure-Patient Inst. Referrals: CRISTINA ROLLE MD (PCP/Family) Primary Care Physician LIZZ VIDAL APRN Oct 12, 2018 11:56
[2018-10-12 11:59] LABS: BASOPHILS % (AUTO) 0 % (0-10); EOSINOPHILS % (AUTO) 1 % (0-10); HEMATOCRIT 55 % (40-54); LYMPHOCYTES # (AUTO) 1.2 X 10^3 (1.0-4.0); LYMPHOCYTES % (AUTO) 14 % (12-44); MEAN CORPUSCULAR HEMOGLOBIN 30 PG (25-34); MEAN CORPUSCULAR HGB CONC 29 G/DL (32-36); MEAN CORPUSCULAR VOLUME 102 FL (80-99); MEAN PLATELET VOLUME 9.9 FL (7.4-10.4); MONOCYTES # (AUTO) 1.1 X 10^3 (0.0-1.0); MONOCYTES % (AUTO) 12 % (0-12); NEUTROPHILS # (AUTO) 6.5 X 10^3 (1.8-7.8); NEUTROPHILS % (AUTO) 74 % (42-75); PLATELET COUNT 136 10^3/uL (130-400); RED CELL DISTRIBUTION WIDTH 14.5 % (10.0-14.5); WHITE BLOOD COUNT 8.9 10^3/uL (4.3-11.0)
[2018-10-12] MEDS ORDERED: RT-ALBUTEROL/IPRATROPIUM 3 ML (DUONEB) VIAL INH ONE (12:00)
[2018-10-12 12:12] VITALS: BP_DIAS 112
--- NOTE | 2018-10-12 12:19 | Diagnostic Imaging Report ---
Indication: Altered mental status. Time of exam: 12:03 PM Correlation is made with prior chest from 09/01/2018. Heart size is stable. Minimal elevation of the left hemidiaphragm is noted, similar to prior study. Appears to be some minimal infiltrate or atelectasis in the right base. Otherwise lungs are clear. There is no evidence of congestive failure. No effusion or pneumothorax is seen. Impression: Minimal right basilar infiltrate or atelectasis. Dictated by: Dictated on workstation # [id number]
[2018-10-12 12:20] LABS: ABG BASE EXCESS 14.9 MMOL/L (-2.5-2.5); ABG OXYGEN SATURATION 97 % (94-100); ABG PO2 104 MMHG (79-93); ABG TCO2 47.5 MMOL/L (21.0-31.0)
[2018-10-12 12:22] LABS: ABG PCO2 122 MMHG (35-45); ABG PH 7.18 (7.37-7.43)
[2018-10-12 12:23] LABS: INSPIRED O2 50%; PATIENT TEMP 97.6; VENTILATOR NO
[2018-10-12 12:27] LABS: ALBUMIN 3.5 GM/DL (3.2-4.5); BILIRUBIN,TOTAL 0.9 MG/DL (0.1-1.0); CALCIUM 9.6 MG/DL (8.5-10.1); CREATININE SERUM 1.25 MG/DL (0.60-1.30); POTASSIUM 4.1 MMOL/L (3.6-5.0); TOTAL PROTEIN 7.6 GM/DL (6.4-8.2)
[2018-10-12] MEDS ORDERED: PIPERACILLIN/TAZOBACTAM (BULK) 4.5 GM in NS (IVPB) 100 ML IV ONE (12:45)
[2018-10-12] MEDS ORDERED: NS (IVPB) 100 ML ONE (12:46)
[2018-10-12] MEDS ORDERED: WATER (STERILE) FOR INJECTION 20 ML ONE (12:46)
[2018-10-12] MEDS ORDERED: PIPERACILLIN/TAZO 4.5 GM VIAL (ZOSYN) IV ONE (12:46)
[2018-10-12 13:30] VITALS: BP 110/73
--- NOTE | 2018-10-12 13:32 | NUR ---
COOPER MARTINEZ admitted to room 413-1, with an admitting diagnosis of respitory failure, on 10/12/18 from ed via stretcher, accompanied by staff and family .COOPER MARTINEZ introduced to surroundings, call light, bed controls, phone, TV, temperature control, lights, meal times, smoking policy, visitor policy, side rail policy, bathrooms and showers. Patient Rights given to patient in the handbook. COOPER MARTINEZ verbalizes understanding that [facility] is not responsible for the loss or damage to any personal effects or valuables that are kept in the patients posession during their hospitalization. The following Patient Care Plans and discharge were discussed with the patient. COOPER MARTINEZ verbalizes understanding of Interdisciplinary Patient Education.
[2018-10-12 13:33] VITALS: BP 81/112
[2018-10-12] MEDS ORDERED: RT-ALBUTEROL/IPRATROPIUM 3 ML (DUONEB) VIAL INH PRN (13:45)
[2018-10-12] MEDS ORDERED: BISACODYL 10 MG SUPP (DULCOLAX) PR PRN (13:45)
[2018-10-12] MEDS ORDERED: GLYCOPYRROLATE 0.2 MG/ML (ROBINUL) 2 ML VIAL IV PRN (13:45)
[2018-10-12] MEDS ORDERED: SALIVA STIMULANT MOUTH SPRAY (BIOTENE) 1.5 OZ MM PRN (13:45)
[2018-10-12] MEDS ORDERED: ONDANSETRON 4 MG/2 ML (SDV) Z0FRAN IV PRN (13:45)
[2018-10-12] MEDS ORDERED: LORazepam INJ 2 MG/ML (ATIVAN) VIAL IV PRN (13:45)
[2018-10-12] MEDS ORDERED: ACETAMINOPHEN 650 MG SUPP (TYLENOL) PR PRN (13:45)
[2018-10-12] MEDS ORDERED: SCOPOLAMINE 1.5 MG (TRANSDERM-SCOP) PATCH TOP SCH (14:00)
[2018-10-12] MEDS ORDERED: ARTIFICAL TEARS 0.4 ML UNIT DOSE (REFRESH PLUS) OU PRN (14:00)
[2018-10-12] MEDS ORDERED: morphine INJ 4 MG/ML 1 ML (VIAL/SYRINGE) IV PRN (14:00)
--- NOTE | 2018-10-12 14:14 | NUR ---
PALLIATIVE CARE RN to room of this patient who is in respiratory distress admitted form the ED where he arrived unresponsive. Upon entering the room noted patient to be on BiPAP and alert and attempting to communicate. Family wanted to leave the room to talk and he said " why do you never talk in front of me?". I assured him I would return to tell him what we were talking about. I mentioned that right now we are focused on keeping him alive and he adamantly said...."don't do that!". Spoke to the family where they shed tears ultimately stating that they do not ant the patient to struggle or be in pain. I educated on what Comfort Care would be like in the hospital and then we went to talk to the patient. He is again adamant that he does not want to be resuscitated and he says the important person in this equation is his . She verbalized to him that she did not want him to suffer. He requested that his BiPAP mask be removed , which RT did placing him on a nasal canula. Currently family is in room and supportive of the patient. This RN will continue to follow as needed.
[2018-10-12] MEDS ORDERED: MORP100S3 PO (14:19)
[2018-10-12] MEDS ORDERED: DILT240C PO (14:19)
[2018-10-12] MEDS ORDERED: ATOR80TA76 PO (14:19)
[2018-10-12] MEDS ORDERED: MELA10TA2 PO (14:19)
[2018-10-12] MEDS ORDERED: CEFD300C3 PO (14:19)
[2018-10-12] MEDS ORDERED: ACET325T38 PO (14:19)
[2018-10-12] MEDS ORDERED: ALBU2.5V4 NEB (14:19)
--- NOTE | 2018-10-12 14:21 | NUR ---
UPDATED MED REC WITH ORDER SUMMARY REPORT FROM [facility].
--- NOTE | 2018-10-12 14:41 | NUR ---
Pastoral care visit as family was discussing pts situation. Palliative Care RN was also present and involved in conversation. I met with some family in the hallway and then took an opportunity to visit with pt and his , offering support and prayer as the pt shared he "is ok with whatever happens".
--- NOTE | 2018-10-12 15:33 | NUR ---
stated patient has family and sons out of town, and she is not able to get a hold of them, if they would call enquiring about the patient they should be informed
--- NOTE | 2018-10-12 17:17 | History & Physical-Hospitalist ---
History of Present Illness HPI/Chief Complaint The patient is an 78-year-old white male with known chronic hypercapnic respiratory failure who wide seen yesterday in the office with complaints of fatigue with purulent sputum production. His O2 saturations at that time were 93 percent on 3 L of O2 close to his baseline. He did not appear to be in acute distress just fatigue. He was alert and oriented left. We did initiate Levaquin at that time as his sputum production was green and he has pseudomonal risk with multiple exacerbations of COPD and his chronic hypercapnic respiratory failure ER as well as hospitalizations over the past 6 months with failure to thrive necessitating snf placement about a month ago. He wished him to medical treatments and comfort care and his goal is to try to avoid hospitalization if possible. Apparently he did walk to the dining room but on his way back became confused and minimally responsive. There was no evidence for aspiration per snf staff but they transferred him to the emergency room after noting O2 saturations in the mid 70 range on 3 or 4 L of O2 as I recall it definitely was not on room air. In the emergency room it was noted that his CO2 level was around 120 with pH of 7.18 and an O2 as I recall in the 60s. After discussion and 9 this patient's wishes we did admit him to the fourt h floor on [facility] was a chest x-ray revealed questionable right lower lobe pneumonia. Patient on BiPAP did become conversant again. The BiPAP was bothering him an understanding that his life may be significant way short and without use he still opted for oxygen via nasal cannula. Upon my arrival he appeared comfortable but was not responsive to verbal or physical stimulation. Family members were present and all agreeable with comfort care measures. Questions were answered and I told him that there was a good chance he would not survive the day but that we should have no difficulty keeping him comfortable. This was discussed with nursing staff and all are in agreement with treatment plan. Date Seen 10/12/18 Time Seen by a Provider: 16:30 Attending Physician Cristina Meadows MD PCP Cristina Meadows MD Referring Physician Date of Admission Oct 12, 2018 at 12:41 Home Medications & Allergies Home Medications Reviewed patient Home Medication Reconciliation performed by pharmacy medication reconciliations biomedical electronics technician and/or nursing. Patients Allergies have been reviewed. Allergies Allergies Coded Allergies No Known Drug Allergies (Unverified09/18/18) Past Eszozvn-Mncivg-Jeftqg Hx Past Med/Social Hx: Reviewed and Corrections made Patient Social History Alcohol Use: Denies Use Recreational Drug Use: No Former Smoker, Quit: Jun 10, 2007 Type Used: Cigarettes 2nd Hand Smoke Exposure: No Physical Abuse Screen: No Sexual Abuse: No Recent Foreign Travel: No Contact w/other who traveled: No Recent Hopitalizations: No Recent Infectious Disease Expo: No Immunizations Up To Date Tetanus Booster (TDap): Unknown Pediatric: No Date of Pneumonia Vaccine: Dec 08, 2015 Date of Influenza Vaccine: Dec 08, 2015 Seasonal Allergies Seasonal Allergies: Yes Past Medical History Currently Using CPAP: Yes Currently Using BIPAP: Yes Cardiac: Atrial Fibrillation, Cardiomyopathy, Coronary Artery Disease, High Cholesterol, Hypertension, Irregular Heartbeat, Valvular Heart Disease Reproductive: No Sexually Transmitted Disease: No HIV/AIDS: No Loss of Vision: Bilateral Hearing Impairment: Denies History of Blood Disorders: Yes (POLYCYTHEMIA) Adverse Reaction to Blood Miller: No Family History Diabetes mellitus Review of Systems ROS-Unable to Obtain: Unobtainable as patient is unarousable Constitutional: see HPI Physical Exam Physical Exam Vital Signs Vital Signs - First Documented 10/12/18 10/12/18 11:45 12:12 Temp 97.6 Pulse 117 Resp 20 B/P (MAP) 119/92 (101) Pulse Ox 100 O2 Delivery NIV/Bilevel O2 Flow Rate 50.00 Capillary Refill : Less Than 3 Seconds Height, Weight, BMI Height: 5'9.00" Weight: 170lbs. 7.0oz. 77.805944lt; 25.2 BMI Method:Stated General Appearance: No Apparent Distress, Chronically ill Respiratory: No Accessory Muscle Use, No Respiratory Distress, Other (Diminished breath sounds noted posteriorly patient unable to take deep breaths with shallow respirations no congestion noted.) Cardiovascular: No Murmur, Irregularly Irregular Gastrointestinal: No Organomegaly, Non Tender, Soft Extremity: No Pedal Edema Results Results/Procedures Labs Laboratory Tests 10/12/18 11:50 Patient resulted labs reviewed. Assessment/Plan Admission Diagnosis A/P 1. Acute on chronic hypercapnic respiratory failure most likely due to right lower lobe pneumonia survival not expected. We'll continue antibiotics for now with comfort care protocol otherwise. 2. Chronic atrial fibrillation considering comfort care and unarousable status will be holding all by mouth medication. Admission Status: Inpatient Order (span 2 midnights) Reason for Inpatient Admission: See admission diagnosis Critical Care Critically Ill Patient Clinical Quality Measures DVT/VTE Risk/Contraindication: Risk Factor Score Per Nursin RFS Level Per Nursing on Admit: 4+=Very High CRISTINA MEADOWS MD Oct 12, 2018 17:16
--- NOTE | 2018-10-13 11:34 | Discharge Summary ---
Discharge Summary Date of Admission Oct 12, 2018 at 12:41 Date of Discharge Discharge Date: Oct 13, 2018 Discharge Time: 10:55 Admission Diagnosis A/P 1. Acute on chronic hypercapnic respiratory failure most likely due to right lower lobe pneumonia survival not expected. We'll continue antibiotics for now with comfort care protocol otherwise. 2. Chronic atrial fibrillation considering comfort care and unarousable status will be holding all by mouth medication. Comfort Measures/ End of Life Care: Comfort Measures Date of : Oct 13, 2018 Time of : 10:55 Patient was admitted with acute exacerbation of chronic hypercapnic respiratory failure. See H&P note. Patient opted to continue DO NOT RESUSCITATE status and opted for comfort care wishing not to remain on BiPAP. Family members are present at bedside. He did survive the night but when I came in in the morning he was unresponsive. Chest x-ray revealed small right lower lobe infiltrate and I suspect underlying pneumonia was the exacerbating factor for his underlying demise in the cause of acute hypercapnic respiratory failure. He quietly with family members present. Discharge Diagnosis 1. Acute on chronic hypercapnic respiratory failure. 10 acute pneumonia complicating underlying end-stage COPD. 2. Chronic atrial fibrillation Copy Copies To 1: CRISTINA MEADOWS MD, MARK D MD Oct 13, 2018 11:34
--- NOTE | 2018-10-13 13:41 | NUR ---
- Dr. Rolle notified, palative nurse notified, family present - body released to [facility]
[2018-10-15] MEDS ORDERED: SCOPOLAMINE PATCH REMOVAL TP SCH (13:59)
== END 2018-10-13 13:47 | disposition expired | DRG 951 ==
LOC: EDUNIT# 11:42 → ER 11:43 → 4TH 12:41
PROVIDERS: ADMIT Internal Medicine; ATTEND Internal Medicine
DX: Z51.5 Encounter for palliative care (principal); J96.22 Acute and chronic respiratory failure with hypercapnia; I42.9 Cardiomyopathy, unspecified; J18.9 Pneumonia, unspecified organism; I38 Endocarditis, valve unspecified; I49.9 Cardiac arrhythmia, unspecified; I48.2 Chronic atrial fibrillation; Z66 Do not resuscitate; J44.9 Chronic obstructive pulmonary disease, unspecified; J30.2 Other seasonal allergic rhinitis; I25.10 Atherosclerotic heart disease of native coronary artery without angina pectoris; I10 Essential (primary) hypertension; E78.00 Pure hypercholesterolemia, unspecified; I27.20 Pulmonary hypertension, unspecified; D75.1 Secondary polycythemia; Z87.891 Personal history of nicotine dependence
CPT/HCPCS: 36415; 36600; 51702; 71045; 80053; 82805; 83605; 85025; 87040; 93005; 94660